=== PATIENT | male | born 1975 | race African-American/Black ===

== ENCOUNTER 2019-08-01 11:50 | Inpatient (IN) | payer MEDICARE ==
[2019-08-01] VITALS (7 sets, daily range): BP systolic 133–152; BP diastolic 92–108; BMI 26.6
[~2019-08-01] VITALS: Ht 175.3 cm; Wt 77.1 kg
[2019-08-01 12:46] LABS: BASOPHILS 0.2 % (0-2); EOSINOPHILS 1.3 % (0-7); HEMATOCRIT 47.4 % (42.0-54.0); HEMOGLOBIN 15.8 g/dL (13.5-17.5); IMMATURE GRANULOCYTES 0.3 % (0-5); MCH 28.5 pg (26.0-34.0); MCHC 33.3 g/dL (31.0-37.0); MCV 85.4 fL (80.0-100.0); MONOCYTES 5.8 % (2-11); NEUTROPHILS 67.4 % (40-80); PLATELET COUNT 191 10x3/uL (130-400); RBC 5.55 10x6/uL (4.20-6.10); RDW 16.3 % (11.5-14.5); WBC 6.1 10x3/uL (4.8-10.8)
[2019-08-01 12:56] LABS: APTT 27.6 SECONDS (22.8-39.4); INR 1.04 (0.85-1.17); PROTIME 13.1 SECONDS (11.6-15.0)
[2019-08-01 13:02] LABS: D-DIMER-QUANTITATIVE 1.02 ug/mLFEU (0.20-0.54)
[2019-08-01 13:05] LABS: ALBUMIN 3.4 g/dL (3.4-5.0); ALKALINE PHOSPHATASE 86 U/L (46-116); ALT (SGPT) 70 U/L (10-68); BILIRUBIN - TOTAL 0.27 mg/dL (0.2-1.3); CALC OSMOLALITY 279 mosm/kg (275-300); CALCIUM 8.5 mg/dL (8.5-10.1); CARBON DIOXIDE 25.7 mmol/L (21.0-32.0); CHLORIDE - SERUM 107 mmol/L (98-107); CREATININE - SERUM 0.9 mg/dL (0.6-1.3); GLUCOSE 96 mg/dL (74-106); PROTEIN - SERUM 7.9 g/dL (6.4-8.2); SODIUM 141 mmol/L (136-145); UREA NITROGEN 10 mg/dL (7-18); eGFR NON AFRICAN AMERICAN > 90 mL/min (90-120)
[2019-08-01 13:15] LABS: CKMB 1.4 U/L (0.0-3.6); CREATINE KINASE 191 UL (21-232); PRO BNP 1063 pg/mL (0-125)
[2019-08-01 13:17] LABS: TROPONIN-I < 0.017 ng/mL (0.000-0.060)
--- NOTE | 2019-08-01 14:33 | NUR ---
REPORT CALLED TO RECEIVING NURSE, PT JUST BEGAN C/O N/V.
--- NOTE | 2019-08-01 15:33 | NUR ---
PT ARRIVES TO ROOM VIA WHEELCHAIR ESCORTED BY HOSPITAL STAFF. PT IS HYPERTENSIVE. SEE VS FLOWSHEET. O2 VIA NC @ 4L. PT REPORTS PAIN TO "LUNGS". PT DENIES PRESENCE OF N/V. PT REPORTS SLIGHT TROUBLE WITH TAKING DEEP BREATHS. PT IS AAO X 4. RESPIRATIONS ARE EVEN AND UNLABORED. BROTHER ACCOMPANIES PT TO ROOM. PIV TO LEFT HAND IS INFUSING WITHOUT DIFFICULTY. AZITHROMYCIN INFUSING WITHOUT DIFFICULTY. BED IS IN THE LOWEST POSITION. CALL LIGHT AND BEDSIDE TABLE ARE WITHIN REACH. SIDE RAILS X 2. WILL CONT TO MONITOR.
--- NOTE | 2019-08-01 15:55 | NUR ---
PT BROTHER PULLS THIS NURSE ASIDE OUTSIDE OF PT ROOM AND REPORTS THAT THE PT DOES HAVE A HX OF SCHIZOPHRENIA BUT DOES NOT TAKE MEDICATION FOR PSYCHIATRIC ILLNESS.
--- NOTE | 2019-08-01 16:44 | NUR ---
PT WITH O2 SATURATIONS @ 85% ON 4L NC HUMIDIFIED. RESPIRATORY TAMMI NOTIFIED AND PLACED PT ON HIGH FLOW NC @ 7L. DR LAWSON NOTIFIED OF PT STATUS. TELEPHONE ORDERS RECD ARE TO OPBTAIN BLOOD GAS. RESPIRATORY TAMMI NOTIFIED OF NEED FOR BLOOD GAS. PT IS CURRENTLY SITTING IN BED RESPIRATIONS ARE EVEN AND FAST. PT REQUESTS TO EAT DINNER BECAUSE "MY STOMACH IS EMPTY AND THAT IS WHY I CAN'T BREATHE". WILL CONT TO MONITOR.
--- NOTE | 2019-08-01 17:43 | NUR ---
PT WITH REQUESTS TO LEAVE AMA. PT IS BECOMING ANXIOUS AND IRRITATED AT NC AND O2. PT ASKS "WHAT DO I HAVE TO DO TO LEAVE HERE". PT ENCOURAGED TO STAY FOR TREATMENT. PT IS COOPERATIVE AT THIS TIME. PAGE PLACED TO JLUIS HERRERA APRN TO NOTIFY OF PT STATE AND REQUEST.
--- NOTE | 2019-08-01 17:55 | NUR ---
JLUIS HERRERA APRN RETURNED PAGE. WILL COME AND ASSESS PT AT THIS TIME. NO NEW ORDERS RECD.
--- NOTE | 2019-08-01 18:28 | NUR ---
DR LAWSON, JLUIS HERRERA APRN AND THIS NURSE AT BEDSIDE WITH PT BROTHER IN ROOM. DISCUSSED TREAMTENT PLAN AT LENGTH WITH PT AND PT BROTHER. VERBAL ORDERS RECD POST ROOM CONFERENCE ARE DUONEB TREATMENT Q4H, 21MG NICOTINE PATCH DAILY, 0.5MG ATIVAN IV ONE TIME NOW. WILL PLACE ORDERS.
[2019-08-02] VITALS: BP 131/83
[2019-08-02 04:00] VITALS: BP 135/95
[2019-08-02 06:25] LABS: BASOPHILS 0 % (0-2); EOSINOPHILS 0 % (0-7); HEMATOCRIT 44.9 % (42.0-54.0); HEMOGLOBIN 14.7 g/dL (13.5-17.5); IMMATURE GRANULOCYTES 0.3 % (0-5); LYMPHOCYTES 7.1 % (15-50); MCH 27.5 pg (26.0-34.0); MCHC 32.7 g/dL (31.0-37.0); MCV 84.1 fL (80.0-100.0); MEAN PLATELET VOLUME 10.1 fL (7.4-10.4); MONOCYTES 1.1 % (2-11); NEUTROPHILS 91.5 % (40-80); PLATELET COUNT 188 10x3/uL (130-400); RBC 5.34 10x6/uL (4.20-6.10); RDW 15.9 % (11.5-14.5)
[2019-08-02 06:39] LABS: WBC 9.8 10x3/uL (4.8-10.8)
[2019-08-02 06:49] LABS: CALC OSMOLALITY 281 mosm/kg (275-300); CARBON DIOXIDE 24.3 mmol/L (21.0-32.0); CHLORIDE - SERUM 107 mmol/L (98-107); CREATININE - SERUM 0.9 mg/dL (0.6-1.3); MAGNESIUM - SERUM 2.4 mg/dL (1.8-2.4); PHOSPHOROUS 3.7 mg/dL (2.5-4.9); POTASSIUM - SERUM 4.3 mmol/L (3.5-5.1); PRO BNP 2539 pg/mL (0-125); SODIUM 139 mmol/L (136-145); UREA NITROGEN 12 mg/dL (7-18); eGFR NON AFRICAN AMERICAN > 90 mL/min (90-120)
[2019-08-02 06:52] LABS: APPEARANCE CLEAR (CLEAR); BILIRUBIN NEGATIVE (NEGATIVE); COLOR YELLOW (YELLOW); GLUCOSE NEGATIVE (NEGATIVE); KETONE NEGATIVE (NEGATIVE); NITRITE NEGATIVE (NEGATIVE); PROTEIN NEGATIVE (NEGATIVE); SPECIFIC GRAVITY 1.015 (1.005-1.020); UROBILINOGEN NORMAL (NORMAL)
[2019-08-02 06:52] LABS: GLUCOSE 164 mg/dL (74-106)
[2019-08-02 08:00] VITALS: BP 125/74
--- NOTE | 2019-08-02 08:08 | NUR ---
ALERT AND ORIENTED X3 WITH RESP EVEN AND UNLABORED WITH HI-FLOW 02 AT 7L N/C. BREATH SOUNDS DIMINISHED TO BLQ POSTERIOR. UP ADLIB AND ENCOURAGED TO USE CALL LIGHT FOR ASSIT.
[2019-08-02 20:05] VITALS: BP 110/71
[2019-08-03] VITALS (9 sets, daily range): BP systolic 124–145; BP diastolic 63–109
[2019-08-03 02:56] LABS: UDS - AMPHET NEGATIVE QUAL (NEGATIVE); UDS - BARB NEGATIVE QUAL (NEGATIVE); UDS - BENZO NEGATIVE QUAL (NEGATIVE); UDS - COCAINE NEGATIVE QUAL (NEGATIVE); UDS - OPIATE NEGATIVE QUAL (NEGATIVE); UDS - PCP NEGATIVE QUAL (NEGATIVE); UDS - THC NEGATIVE QUAL (NEGATIVE)
[2019-08-03 07:13] LABS: BASOPHILS 0 % (0-2); EOSINOPHILS 0 % (0-7); HEMOGLOBIN 12.9 g/dL (13.5-17.5); IMMATURE GRANULOCYTES 0.2 % (0-5); LYMPHOCYTES 5.4 % (15-50); MCH 27.4 pg (26.0-34.0); MCHC 32.3 g/dL (31.0-37.0); MCV 85.1 fL (80.0-100.0); MEAN PLATELET VOLUME 10.2 fL (7.4-10.4); MONOCYTES 4.6 % (2-11); NEUTROPHILS 89.8 % (40-80); PLATELET COUNT 182 10x3/uL (130-400); RDW 16.2 % (11.5-14.5)
[2019-08-03 07:34] LABS: CALC OSMOLALITY 287 mosm/kg (275-300); CALCIUM 8.3 mg/dL (8.5-10.1); CARBON DIOXIDE 25.9 mmol/L (21.0-32.0); CHLORIDE - SERUM 109 mmol/L (98-107); GLUCOSE 146 mg/dL (74-106); MAGNESIUM - SERUM 2.5 mg/dL (1.8-2.4); PHOSPHOROUS 3.3 mg/dL (2.5-4.9); POTASSIUM - SERUM 4.1 mmol/L (3.5-5.1); SODIUM 143 mmol/L (136-145); UREA NITROGEN 12 mg/dL (7-18); eGFR NON AFRICAN AMERICAN 87 mL/min (90-120)
--- NOTE | 2019-08-03 08:00 | NUR ---
ALERT AND ORIENTED X3 WITH ANXIEY. ATIVAN GIVEN FOR ANXIETY AND EFFECTIVE. STATES WANTS TO SMOKE BUT INSTRUCTED THAT IS WHY HE IS WEARING A NICOTINE PATCH. FAMILY HERE AT THIS TIME. HRRR WITH NO PERIPHERAL EDEMA NOTED. O2 3L N/C WITH NON-PRODUCTIVE COUGH. BREATH SOUNDS DIMINISHED X2 TO BLQ POSTERIOR WITH DYSPNEA
--- NOTE | 2019-08-03 14:30 | NUR ---
PT FREQUENTLY REMINDED TO KEEP OXYGEN ON PER NASAL CANULA PULSE OX DROPS TO 80/S WHEN OFF. HI-FLOW OXYGEN AT 5L N/C. NON- PRODUCTIVE COUGH NOTED. O2 SAT 93 WITH OXYGEN ON.
--- NOTE | 2019-08-03 17:47 | NUR ---
DR. LAWSON CALLED REGARDING NON COMPLIANCE WITH KEEPING OXYGEN ON AND AGITIATION WITH NEW ORDER NOTED. BROTHER HERE AT THIS TIME.
--- NOTE | 2019-08-03 18:19 | NUR ---
REPORT CALLED TO CHANTEL REGARDING PT PRESENT CONDITION. BIPAP ON AT THIS TIME WITH CALM DEMENOR AT THIS TIME. LASIX IV GIVEN. STABLE AT TIME OF TRANSFER. BROTHER HERE AND AWARE OF SITUATION.
--- NOTE | 2019-08-03 18:35 | NUR ---
PATIENT ARRIVED TO UNIT
--- NOTE | 2019-08-03 18:53 | NUR ---
FAMILY AT BEDSIDE UPDATE GIVEN.
--- NOTE | 2019-08-03 19:00 | NUR ---
REPORT RECEIVED INITIAL ASSESSMENT COMPLETE PT LETHARGIC BUT AWAKENS TO VERBAL STIMULI ORIENTED FOLLOWS COMMANDS. RESP EVEN FAINT CRACKLES TO BASES. BIPAP 65% SEE RT FOR NOTES. CM READING ST ALARMS ON AND AUDIBLE. BED IN LOW POSITION SIDE RAILS UP TIMES 3 FOR BED MOBILITY AND SAFETY CL IN REACH.PTS FAMILY AT BEDSIDE BROTHER STATES "HE DOES DRINK ALOT EVERYDAY AND USES DRUGS CRACK AND METH" PT HAS LONG MENTAL HEALTH HISTORY WITH NONCOMPLIANCE WITH MEDS
--- NOTE | 2019-08-03 21:00 | NUR ---
BED ALARM SOUNDING INTO CHECK ON PT HE IS ATTEMPTING TO GET OOB TO URINATE REEDUCATED ON BED REST AND NEED TO USE URINAL NOT TO GET OOB WITHOUT ASSIST
--- NOTE | 2019-08-03 23:00 | NUR ---
REASSESSMENT COMPLETE SEE FLOWSHEET CPOC
--- NOTE | 2019-08-03 23:35 | NUR ---
BED ALARM SOUNDING PT UP HAS PULLED GOWN OFF AND CM O2 SAT OFF. PT HAD URINATED ON SELF ASSISTED WITH COMPLETE CHG BATH AND COMPLETE LINEN CHANGE. PT STATES "I WANT TO BE DISCHARGED INFORMED OF HOW SICK HE HAD BEEN EARLIER WITH FLUID AND NOT BEING ABLE TO BREATHE WELL WITH FLUID THAT NEED TO BE HERE AT THIS TIME
--- NOTE | 2019-08-03 23:45 | NUR ---
PT ANXIOUS GETTING OOB AND WANTING TO LEAVE MEDICATED WITH PRN MED SEE EMAR.
[2019-08-04] VITALS (24 sets, daily range): BP systolic 87–160; BP diastolic 56–114
--- NOTE | 2019-08-04 02:00 | NUR ---
PT ANXIOUS BROTHER AT BEDSIDE TO EASE PTS ANXIETY AND AGITATION
--- NOTE | 2019-08-04 03:00 | NUR ---
REASSESSMENT MADE VSS CPOC PTS BROTHER REMAINS AT BEDSIDE
[2019-08-04 03:13] LABS: BASOPHILS 0.1 % (0-2); EOSINOPHILS 0.1 % (0-7); HEMOGLOBIN 14.3 g/dL (13.5-17.5); IMMATURE GRANULOCYTES 0.3 % (0-5); LYMPHOCYTES 14.1 % (15-50); MCH 27.7 pg (26.0-34.0); MCHC 32.5 g/dL (31.0-37.0); MCV 85.3 fL (80.0-100.0); MEAN PLATELET VOLUME 10.7 fL (7.4-10.4); MONOCYTES 5.8 % (2-11); NEUTROPHILS 79.6 % (40-80); PLATELET COUNT 205 10x3/uL (130-400); RBC 5.16 10x6/uL (4.20-6.10); RDW 16.6 % (11.5-14.5); WBC 14.7 10x3/uL (4.8-10.8)
[2019-08-04 03:18] LABS: CALC OSMOLALITY 281 mosm/kg (275-300); CALCIUM 8.7 mg/dL (8.5-10.1); CHLORIDE - SERUM 103 mmol/L (98-107); CREATININE - SERUM 0.9 mg/dL (0.6-1.3); GLUCOSE 115 mg/dL (74-106); POTASSIUM - SERUM 4.1 mmol/L (3.5-5.1); SODIUM 141 mmol/L (136-145); UREA NITROGEN 12 mg/dL (7-18); eGFR NON AFRICAN AMERICAN > 90 mL/min (90-120)
--- NOTE | 2019-08-04 05:30 | NUR ---
PT REQUESTING SPRITE SWALLOW WITHOUT DIFFICULTY
--- NOTE | 2019-08-04 07:00 | NUR ---
RECEIVED BEDSIDE REPORT AND ASSUMED CARE OF PATIENT. PATIENT RESTING QUIETLY WITH EYES CLOSED VSS, BROTHER AT BEDSIDE. IV 20 GA TO LEFT HAND, FLUSHES EASILY WITH POSITIVE BLOOD RETURN, NSL. CM - HR 117, ST, BBS CLEAR AND EQUAL DIMINISHED IN BASES, RR - 26, SPO2 - 92% ON 2 LPM O2 VIA NC. HEAD TO TOE ASSESSMENT COMLETED.
--- NOTE | 2019-08-04 07:45 | NUR ---
PATIENT GIVEN BREAKFAST TRAY.
--- NOTE | 2019-08-04 09:01 | NUR ---
PATIENT RESTING QUIETLY, EASILY AROUSED, GIVEN MEDS PER MAR. VSS.
--- NOTE | 2019-08-04 11:06 | NUR ---
REASSESSMENT COMPLETED. VSS. IV 22 GA TO RIGHT WRIST STARTED X 1 ATTEMPT, POSITIVE BLOOD RETURN AND FLUSHES EASILY, DOBUTAMINE GTT STARTED AT 5 MCG/KG/MIN PER ORDER. PATIENT RESTING QUIETLY.
--- NOTE | 2019-08-04 13:23 | NUR ---
REPORT RECIEVED ON PT AT THIS TIME. VSS. PT LYING IN BED RESTING, RESPIRATIONS STEADY AND UNLABORED. AWAKENS EASILY WHEN SPOKEN TO. INDEPENDENT IN BED. WILL CONTINUE PLAN OF CARE.
--- NOTE | 2019-08-04 14:42 | NUR ---
CONTINENT VOID VIA URINAL NOTED AT THIS TIME. 375ML YELLOW URINE NOTED. NO ACUTE DISTRESS NOTED. VSS. WILL CONTINUE PLAN OF CARE.
--- NOTE | 2019-08-04 16:14 | NUR ---
UP IN BED EATING SUPPER AT THIS TIME. NO ACUTE DISTRESS NOTED. VSS. WILL CONTINUE PLAN OF CARE.
--- NOTE | 2019-08-04 18:29 | NUR ---
LYING IN BED RESTING AT THIS TIME. RESPIRATIONS STEADY AND UNLABORED RATE. AWAKENS EASILY WHEN SPOKEN TO. WILL CONTINUE PLAN OF CARE.
--- NOTE | 2019-08-04 19:00 | NUR ---
REPORT RECEIVED, PT RESTING IN BED, NO ACUTE DISTRESS NOTED. AROUSES TO VOICE, LETHARGIC, BUT OTHERWISE ALERT AND ORIENTED. PT ON 4L VIA NC, PIV IN RIGHT HAND INFUSING, SEE FLOWSHEET, ASSESSMENT COMPLETED, SEE FLOWSHEET. NO ACUTE DISTRESS NOTED AT THIS TIME.
--- NOTE | 2019-08-04 21:00 | NUR ---
PT RESTING IN BED, NO ACUTE DISTRESS NOTED.
--- NOTE | 2019-08-04 23:00 | NUR ---
PT RESTING IN BED, NO ACUTE DISTRESS NOTED.
[2019-08-05] VITALS (24 sets, daily range): BP systolic 83–130; BP diastolic 54–98; Ht 175.3 cm; Wt 77.1 kg
--- NOTE | 2019-08-05 01:00 | NUR ---
PT RESTING IN BED, ON 1L O2 VIA NC, REPORTS "ITCHING" ON ARMS AND ON BODY, NO SIGNS OF RASH/REDNESS. WILL CONTINUE TO MONITOR.
--- NOTE | 2019-08-05 03:00 | NUR ---
PT RESTING IN BED, DENIES SOB.
[2019-08-05 04:32] LABS: BASOPHILS 0.1 % (0-2); HEMATOCRIT 44.9 % (42.0-54.0); IMMATURE GRANULOCYTES 0.3 % (0-5); LYMPHOCYTES 30.7 % (15-50); MCH 28.1 pg (26.0-34.0); MCHC 33.4 g/dL (31.0-37.0); MCV 84.1 fL (80.0-100.0); MEAN PLATELET VOLUME 10.7 fL (7.4-10.4); MONOCYTES 9.8 % (2-11); NEUTROPHILS 57.1 % (40-80); PLATELET COUNT 196 10x3/uL (130-400); RBC 5.34 10x6/uL (4.20-6.10); RDW 16.2 % (11.5-14.5)
[2019-08-05 04:36] LABS: WBC 7.4 10x3/uL (4.8-10.8)
--- NOTE | 2019-08-05 05:00 | NUR ---
PT RESTING IN BED, LATHARGIC, FAMILY AT BEDSIDE.
[2019-08-05 05:02] LABS: CALCIUM 8.8 mg/dL (8.5-10.1); CARBON DIOXIDE 28.9 mmol/L (21.0-32.0); CHLORIDE - SERUM 100 mmol/L (98-107); GLUCOSE 116 mg/dL (74-106); MAGNESIUM - SERUM 2.2 mg/dL (1.8-2.4); SODIUM 137 mmol/L (136-145); eGFR NON AFRICAN AMERICAN 87 mL/min (90-120)
[2019-08-05 05:05] LABS: CALC OSMOLALITY 276 mosm/kg (275-300); PHOSPHOROUS 4.5 mg/dL (2.5-4.9); POTASSIUM - SERUM 3.1 mmol/L (3.5-5.1); TROPONIN-I < 0.017 ng/mL (0.000-0.060); UREA NITROGEN 18 mg/dL (7-18)
--- NOTE | 2019-08-05 07:15 | NUR ---
REPORT RECEIVED. ASSESSMENT COMPLETE PER FLOW SHEET. VSS. PT RSTING COMFORTABLY DENIES NEEDS WILL CONTINUE TO MONITOR
--- NOTE | 2019-08-05 09:10 | NUR ---
PT GIVEN BREAKFAST TRAY ATE 100%
--- NOTE | 2019-08-05 11:00 | NUR ---
REASSESSMENT COMPLETE PER FLOW SHEET. VSS. NO NEW CHANGES PT RESTING COMFORTABLY WILL CONTINUE TO MONITOR
--- NOTE | 2019-08-05 11:10 | EC ---
PATIENT:TRAM BYERS DATE OF SERVICE: 08/01/19 SEX: M MEDICAL RECORD: [id number] DATE OF : [birth year] LOCATION:[facility] AGE OF PATIENT: 43 ADMISSION DATE: 08/01/19 REFERRING PHYSICIAN: INTERPRETING PHYSICIAN: KINGSTON FERNANDEZ MD ECHOCARDIOGRAM REPORT ECHO CHARGES 4 ECHO COMPLETE Date: 08/02/19 CLINICAL DIAGNOSIS: ELEVATED BNP/TACHYCARDIA/ RESP.FAILURE/DRUG USE ECHOCARDIOGRAPHIC MEASUREMENTS (adult normal given) AC root (d.<3.7cm) 3.3 cm LV Septum d (<1.2 cm> 1.5 cm Valve Excursion 2.0 cm LV Septum (systole) 1.7 cm Left Atria (s.<4.0cm> 4.2 cm LVPW d(<1.2cm) 1.2 cm RV (d.<2.3cm) 1.7 cm LVPW (sytole) 1.9 cm LV diastole(<5.6CM) 6.9 cm MV E-F(>70mm/sec) cm LV systole 5.1 cm LVOT Diameter 1.9 cm MV exc.(>10mm) cm Est.ejection fraction (50-75%) % DOPPLER: LVIT cm/sec A 60.0 cm/sec E 144 cm/sec LA cm/sec RVSP 26.4 mmHg LVOT 109 cm/sec AOP1/2T m/s Asc. Ao 146 cm/sec RVOT 54.0 cm/sec RA cm/sec PA 80.0 cm/sec AV Gradient Peak 8.5 mmHg AV Mean 4.7 mmHg AV Area 2.1 cm MV Gradient Peak 8.3 mmHg MV Mean 3.2 mmHg MV Area cm COMMENTS: Mixer Operator Helper Hot Metal: 1 FROYLAN MORALESOE Lens Cutter: 3 Dr. Crowder TAPE# PACS Pericardial Effusion N DATE OF SERVICE: PROCEDURE: Echocardiogram. FINDINGS: 1. Left ventricular chamber size is dilated. Left ventricular systolic function is markedly reduced at 20%. 2. Left atrium, right atrium, and right ventricular chamber sizes are dilated giving 4-chamber dilatation. 3. Valvular structures have normal structure and motion. ECHOCARDIOGRAM REPORT [id number] TRAM BYERS 4. Doppler interrogation reveals moderate mitral regurgitation, mild tricuspid regurgitation, no other valvular insufficiency or stenosis. Pulmonary systolic pressure is estimated at 26 mmHg. 5. No evidence of pericardial effusion or left ventricular thrombus. TRANSINT:[id number] Voice Confirmation ID: [id number] DOCUMENT ID: [id number] KINGSTON FERNANDEZ MD at 1110 CC: [id number] DICTATION DATE: 08/02/19 1316 CALL CENTRE SUPERVISOR: 08/02/19 1340 ADM IN [facility] [address] [id number]
[2019-08-05 13:12] LABS: ANA REFLEX - DIRECT Negative (Negative)
--- NOTE | 2019-08-05 13:20 | NUR ---
FAMILY AT BEDSIDE VSS NO NEW CHANGES PT RESTING COMFORTABLY WILL CONTINUE TO MONTIOR
--- NOTE | 2019-08-05 15:00 | NUR ---
REASSESSMENT COMPLETE PER FLOW SHEET. VSS. NO NEW CHANGES PT RESTING COMFORTABLY WILL CONTINUE TO MONITOR
--- NOTE | 2019-08-05 15:03 | MORECARE ---
CASE MANAGEMENT DISCHARGE SUMMARY PATIENT: TRAM BYERS UNIT: [id number] ADM DATE: 08/01/19 AGE: 43 : [birth year] SEX: M ROOM/BED: D.2311 AUTHOR: LISA,DOC PHYSICIAN: REFERRING PHYSICIAN: INEZ LAWSON MD DATE OF SERVICE: 08/05/19 Discharge Plan Patient Name: TRAM BYERS Facility: [facility]:[place] : 1975 Planned Disposition: Home Anticipated Discharge Date: Discharge Date: Expected LOS: Initial Reviewer: [email or web address] Initial Review Date: 08/05/2019 Generated: 08/05/19 4:03 pm Comments DCP- Discharge Planning Updated by [email or web address]: Yoselyn Lindsey on 08/05/19 1:[address] Patient Name: TRAM BYERS Admission Status: ER Accout number: [id number] Admission Date: 08-01-2019 : 1975 Admission Diagnosis: Attending: INEZ LAWSON Current LOS: 4 Anticipated DC Date: Planned Disposition: Home Primary Insurance: MEDICARE A & B Discharge Planning Comments: CM met with patient at bedside after explaining CM role and obtaining verbal consent. Patient lives at home alone where he is independent with his care and plans to return there upon discharge. Patient feels this would be a safe discharge. CM discussed availability / needs of home health and medical equipment. Patient denies any discharge needs at this time. Patient states he will have his family drive him home upon discharge. CM will continue to follow and assist as needed with discharge planning / needs. Headstart Teacher: Yoselyn Lindsey DCPIA - Discharge Planning Initial Assessment Updated by [email or web address]: Yoselyn Lindsey on 08/05/19 2:54 pm * Is the patient Alert and Oriented? Yes * How many steps to enter\exit or inside your home? * PCP no PCP * Pharmacy [facility] * Preadmission Environment Home Alone * ADLs Independent * Equipment None * List name and contact numbers for known caregivers / representatives who currently or will assist patient after discharge: TAMMI TAYLOR - [phone] * Verbal permission to speak to the caregivers and representatives has been obtained from the patient. N/A * Community resources currently utilized None * Additional services required to return to the preadmission environment? No * Can the patient safely return to the preadmission environment? Yes * Has this patient been hospitalized within the prior 30 days at any hospital? No Coverage Notice Reviewer: [email or web address] Caleb Cohn Notice Issued Date-Time: 08/02/2019 16:53 Notice Type: IM Discharge Notice Notice Delivered To: Patient Relationship to Patient: Information Security Analyst Name: Delivery Method: HAND - Hand Delivered Geetha Days: Prior Verbal Notification: Recipient Understood Notice: Yes Recipient Signature: Yes Med Rec Note Co-signed by Attending: Coverage Notice Comment: Patient Name: TRAM BYERS Page [phone] at 1503 All edits/amendments must be made on the electronic document DICTATION DATE: 08/05/191502 BAT LATHE OPERATOR: JERRY 08/05/191502 RPT#: [id number] DC DATE: STATUS: ADM IN [facility] [address] [place] [address] END OF REPORT
--- NOTE | 2019-08-05 19:00 | NUR ---
BEDSIDE REPORT AND SHIFT ASSESSMENT COMPLETE. VSS, NO SIGNS OF ACUTE DISTRESS NOTED. DENIES NEEDS AT THIS TIME, CALL LIGHT IN REACH. WILL MONITOR.
--- NOTE | 2019-08-05 21:00 | NUR ---
MEDS GIVEN PER MAR AND TOLERATED BY PT. VSS, NO SIGNS OF ACUTE DISTRESS NOTED. PT CONFUSED, SAYING SHE HAS NOT HAD HER BREAKFAST YET. I REORIENTED, AND SHE VERBALIZES UNDERSTANDING THAT IT IS NIGHT TIME. WILL MONITOR.
--- NOTE | 2019-08-05 23:00 | NUR ---
REASSESSMENT COMPLETE, SEE FLOWSHEET. VSS, NO SIGNS OF ACUTE DISTRESS NOTED. MEDS GIVEN PER MAR. PT DENIES ANY NEEDS AT THIS TIME, WILL MONITOR.
[2019-08-06] VITALS (7 sets, daily range): BP systolic 99–124; BP diastolic 69–96
--- NOTE | 2019-08-06 01:00 | NUR ---
PT ASKING IF I COULD TAKE HIS IV OUT, I TOLD HIM NO. HE THEN ASKED IF HE WAS GOING TO GET TO GO HOME TOMORROW, I TOLD HIM WE WOULD KNOW MORE IN THE MORNING. HE SAID THAT HE DOES NOT WANT ANY OF HIS FAMILY TO KNOW WHEN HE WILL BE DISCHARGED. I ASKED WHY AND HE SHRUGGED HIS SHOULDERS AND SAID "THEY JUST DONT NEED TO KNOW"
--- NOTE | 2019-08-06 03:00 | NUR ---
REASSESSMENT COMPLETE, SEE FLOWSHEET. PT SLEEPING, BROTHER AT BEDSIDE. VSS. CALL LIGHT IN REACH, WILL MONITOR.
--- NOTE | 2019-08-06 05:00 | NUR ---
PT SLEEPING, BROTHER AT BEDSIDE. VSS, NO SIGNS OF ACUTE DISTRESS NOTED. CALL LIGHT IN REACH.
[2019-08-06 05:29] LABS: ANION GAP 12.8 mmol/L (8-16); BASOPHILS 0.3 % (0-2); CALCIUM 8.9 mg/dL (8.5-10.1); CARBON DIOXIDE 29.6 mmol/L (21.0-32.0); EOSINOPHILS 3.4 % (0-7); HEMATOCRIT 46.2 % (42.0-54.0); HEMOGLOBIN 15.3 g/dL (13.5-17.5); IMMATURE GRANULOCYTES 0.5 % (0-5); LYMPHOCYTES 37.8 % (15-50); MCH 27.7 pg (26.0-34.0); MCHC 33.1 g/dL (31.0-37.0); MCV 83.7 fL (80.0-100.0); MEAN PLATELET VOLUME 10.9 fL (7.4-10.4); MONOCYTES 11.7 % (2-11); NEUTROPHILS 46.3 % (40-80); PLATELET COUNT 214 10x3/uL (130-400); POTASSIUM - SERUM 3.4 mmol/L (3.5-5.1); RBC 5.52 10x6/uL (4.20-6.10); RDW 15.9 % (11.5-14.5); WBC 5.8 10x3/uL (4.8-10.8)
[2019-08-06 05:37] LABS: CREATININE - SERUM 1.4 mg/dL (0.6-1.3)
--- NOTE | 2019-08-06 05:50 | NUR ---
PT SITTING AT BS, IV OUT, NO BLEEDING NOTED, DSG APPLIED. BROTHER AT BS, "TRYING TO GET HIM TO STAY". PT WANTS TO LEAVE. EXPLAINED RELEVANCE OF DOBUTAMINE GTT THAT WAS INFUSING AND NEED TO MONITOR VS. PT BECOMING AGITATED, "IM A GROWN MAN AND I WANT TO LEAVE". DR. LAWSON PAGED
--- NOTE | 2019-08-06 06:00 | NUR ---
Mikael PADRON APN RETURNED PAGE - NOTIFIED OF PT WANTING TO LEAVE. ORDER FOR ONE TIME ATIVAN PO - FOR AGITATION. NOTIFIED PT HE CANNOT BE DISCHARGED UNTIL SEEN BY MD. PT REFUSED TAKING ATIVAN AT THIS TIME.
--- NOTE | 2019-08-06 07:29 | NUR ---
DR WHITNEY CALLED GIVEN UPDATE PT ADAMENT ON LEAVING AMA AT THIS TIME UNDERSTANDS RISKS INCLUDING FLUID OVERLOAD AND . STATES UNDERSTANDING TO COME BACK TO ER IF FEELING SOB. STATED UNDERSTANDING REGUARDING INSURANCE WILL NOT COVER THIS STAY. PT ALERT ORIENTED X4. ALL QUESTIONS ANSWERED, SPOKE TO PT AND FAMILY IN DEPTH REGUARDING CURRENT STAY AND DIAGNOSIS. PT CHOSING TO LEAVE AMA AT THIS TIME. PAPERWORK SIGNED DR FONTANA. WITNESSED BY VELVET ANTOINE.
--- NOTE | 2019-08-06 08:57 | MORECARE ---
CASE MANAGEMENT DISCHARGE SUMMARY PATIENT: TRAM BYERS UNIT: [id number] ADM DATE: 08/01/19 AGE: 43 : [birth year] SEX: M ROOM/BED: D.2311 AUTHOR: LISA,DOC PHYSICIAN: REFERRING PHYSICIAN: INEZ LAWSON MD DATE OF SERVICE: 08/06/19 Discharge Plan Patient Name: TRAM BYERS Facility: [facility]:[place] : 1975 Planned Disposition: Home Anticipated Discharge Date: Discharge Date: 08/06/2019 Expected LOS: Initial Reviewer: [email or web address] Initial Review Date: 08/05/2019 Generated: 08/06/19 9:57 am Comments DCP- Discharge Planning Updated by [email or web address]: Yoselyn Lindsey on 08/05/19 1:[address] Patient Name: TRAM BYERS Admission Status: ER Accout number: [id number] Admission Date: 08-01-2019 : 1975 Admission Diagnosis: Attending: INEZ LAWSON Current LOS: 4 Anticipated DC Date: Planned Disposition: Home Primary Insurance: MEDICARE A & B Discharge Planning Comments: CM met with patient at bedside after explaining CM role and obtaining verbal consent. Patient lives at home alone where he is independent with his care and plans to return there upon discharge. Patient feels this would be a safe discharge. CM discussed availability / needs of home health and medical equipment. Patient denies any discharge needs at this time. Patient states he will have his family drive him home upon discharge. CM will continue to follow and assist as needed with discharge planning / needs. Track Laying Supervisor: Yoselyn Lindsey DCPIA - Discharge Planning Initial Assessment Updated by [email or web address]: Yoselyn Lindsey on 08/05/19 2:54 pm * Is the patient Alert and Oriented? Yes * How many steps to enter\exit or inside your home? * PCP no PCP * Pharmacy [facility] * Preadmission Environment Home Alone * ADLs Independent * Equipment None * List name and contact numbers for known caregivers / representatives who currently or will assist patient after discharge: TAMMI EARL - [phone] * Verbal permission to speak to the caregivers and representatives has been obtained from the patient. N/A * Community resources currently utilized None * Additional services required to return to the preadmission environment? No * Can the patient safely return to the preadmission environment? Yes * Has this patient been hospitalized within the prior 30 days at any hospital? No Coverage Notice Reviewer: [email or web address] Caleb Cohn Notice Issued Date-Time: 08/02/2019 16:53 Notice Type: IM Discharge Notice Notice Delivered To: Patient Relationship to Patient: Rn Imaging Name: Delivery Method: HAND - Hand Delivered Geetha Days: Prior Verbal Notification: Recipient Understood Notice: Yes Recipient Signature: Yes Med Rec Note Co-signed by Attending: Coverage Notice Comment: Last DP export: 08/05/19 2:03 Patient Name: TRAM BYERS Page [phone] at 0857 All edits/amendments must be made on the electronic document DICTATION DATE: 08/06/1957 SHIPPER/RECEIVER: JERRY 08/06/19 0857 RPT#: [id number] DC DATE:08/06/19 STATUS: DIS IN [facility] [address] [place] [address] END OF REPORT
--- NOTE | 2019-08-06 09:05 | MORECARE ---
CASE MANAGEMENT DISCHARGE SUMMARY PATIENT: TRAM BYERS UNIT: [id number] ADM DATE: 08/01/19 AGE: 43 : 77 SEX: M ROOM/BED: D.2311 AUTHOR: LISA,DOC PHYSICIAN: REFERRING PHYSICIAN: INEZ LAWSON MD DATE OF SERVICE: 08/06/19 Discharge Plan Patient Name: TRAM BYERS Facility: [facility]:[place] : 1975 Planned Disposition: Home Anticipated Discharge Date: Discharge Date: 08/06/2019 Expected LOS: Initial Reviewer: [email or web address] Initial Review Date: 08/05/2019 Generated: 08/06/19 10:04 am Comments DCP- Discharge Planning Updated by [email or web address]: Yoselyn Lindsey on 08/05/19 1:[address] Patient Name: TRAM BYERS Admission Status: ER Accout number: [id number] Admission Date: 08-01-2019 : 1975 Admission Diagnosis: Attending: INEZ LAWSON Current LOS: 4 Anticipated DC Date: Planned Disposition: Home Primary Insurance: MEDICARE A & B Discharge Planning Comments: CM met with patient at bedside after explaining CM role and obtaining verbal consent. Patient lives at home alone where he is independent with his care and plans to return there upon discharge. Patient feels this would be a safe discharge. CM discussed availability / needs of home health and medical equipment. Patient denies any discharge needs at this time. Patient states he will have his family drive him home upon discharge. CM will continue to follow and assist as needed with discharge planning / needs. Skein Mercerizing Machine Operator: Yoselyn Lindsey DCPIA - Discharge Planning Initial Assessment Updated by [id number]: Yoselyn Lindsey on 08/05/19 2:54 pm * Is the patient Alert and Oriented? Yes * How many steps to enter\exit or inside your home? * PCP no PCP * Pharmacy [facility] * Preadmission Environment Home Alone * ADLs Independent * Equipment None * List name and contact numbers for known caregivers / representatives who currently or will assist patient after discharge: TAMMI EARL - [phone] * Verbal permission to speak to the caregivers and representatives has been obtained from the patient. N/A * Community resources currently utilized None * Additional services required to return to the preadmission environment? No * Can the patient safely return to the preadmission environment? Yes * Has this patient been hospitalized within the prior 30 days at any hospital? No Coverage Notice Reviewer: [email or web address] Caleb Cohn Notice Issued Date-Time: 08/02/2019 16:53 Notice Type: IM Discharge Notice Notice Delivered To: Patient Relationship to Patient: Data Analysis Manager Name: Delivery Method: HAND - Hand Delivered Geetha Days: Prior Verbal Notification: Recipient Understood Notice: Yes Recipient Signature: Yes Med Rec Note Co-signed by Attending: Coverage Notice Comment: Last DP export: 08/06/19 7:57 Patient Name: TRAM BYERS Page [phone] at 0905 All edits/amendments must be made on the electronic document DICTATION DATE: 08/06/19903 RETAIL FIELD SUPERVISOR: JERRY 08/06/19903 RPT#: [id number] DC DATE:08/06/19 STATUS: DIS IN [facility] [address] [place] [address] END OF REPORT
[2019-08-07 03:07] LABS: MYCOPLASMA PNEUMO IGG 715 U/mL (0-99)
== END 2019-08-06 07:34 | disposition home or self-care (01) | DRG 193 ==
LOC: D.ER 11:50 → D.ICU 13:49 → D.M3 13:49 → D.ICU 08-03 18:44
PROVIDERS: Family Medicine; Internal Medicine Pulmonary Disease; ADMIT Internal Medicine Nephrology; ATTEND Internal Medicine Nephrology
DX: J18.9 Pneumonia, unspecified organism (principal); J96.01 Acute respiratory failure with hypoxia; I50.43 Acute on chronic combined systolic (congestive) and diastolic (congestive) heart failure; J44.1 Chronic obstructive pulmonary disease with (acute) exacerbation; G93.1 Anoxic brain damage, not elsewhere classified; F17.213 Nicotine dependence, cigarettes, with withdrawal; I42.7 Cardiomyopathy due to drug and external agent; J44.0 Chronic obstructive pulmonary disease with (acute) lower respiratory infection; I10 Essential (primary) hypertension; F15.10 Other stimulant abuse, uncomplicated; F31.9 Bipolar disorder, unspecified; J30.9 Allergic rhinitis, unspecified

== ENCOUNTER 2019-10-08 09:54 | Inpatient (IN) | payer MEDICARE ==
[~2019-10-08] VITALS: Ht 175.3 cm; Wt 80.9 kg
[2019-10-08 10:33] LABS: BASOPHILS 0.4 % (0-2); EOSINOPHILS 0.9 % (0-7); HEMOGLOBIN 14.8 g/dL (13.5-17.5); IMMATURE GRANULOCYTES 0.3 % (0-5); LYMPHOCYTES 18.4 % (15-50); MCH 27.4 pg (26.0-34.0); MCHC 32.9 g/dL (31.0-37.0); MCV 83.3 fL (80.0-100.0); MEAN PLATELET VOLUME 10.2 fL (7.4-10.4); MONOCYTES 10.5 % (2-11); NEUTROPHILS 69.5 % (40-80); RDW 15.3 % (11.5-14.5); WBC 9.5 10x3/uL (4.8-10.8)
[2019-10-08 10:37] LABS: CALC OSMOLALITY 272 mosm/kg (275-300); CALCIUM 8.9 mg/dL (8.5-10.1); CARBON DIOXIDE 23.7 mmol/L (21.0-32.0); CHLORIDE - SERUM 101 mmol/L (98-107); CREATININE - SERUM 1.1 mg/dL (0.6-1.3); SODIUM 135 mmol/L (136-145); UREA NITROGEN 9 mg/dL (7-18); eGFR NON AFRICAN AMERICAN 78 mL/min (90-120)
[2019-10-08 10:39] LABS: APTT 35.8 SECONDS (22.8-39.4); INR 1.19 (0.85-1.17); PROTIME 14.5 SECONDS (11.6-15.0)
[2019-10-08 10:41] LABS: GLUCOSE 172 mg/dL (74-106)
[2019-10-08 10:42] LABS: PLATELET COUNT 325 10x3/uL (130-400)
[2019-10-08 10:54] LABS: ALBUMIN 2.9 g/dL (3.4-5.0); ALKALINE PHOSPHATASE 107 U/L (46-116); ALT (SGPT) 92 U/L (10-68); BILIRUBIN - TOTAL 0.88 mg/dL (0.2-1.3); CKMB 1.8 U/L (0.0-3.6); CREATINE KINASE 159 UL (21-232); PRO BNP 5572 pg/mL (0-125); PROTEIN - SERUM 7.7 g/dL (6.4-8.2); TROPONIN-I < 0.017 ng/mL (0.000-0.060)
[2019-10-08 11:19] VITALS: BP 140/101
--- NOTE | 2019-10-08 11:20 | NUR ---
VOIDED 500ML CLEAR YELLOW URINE VIA URINAL
--- NOTE | 2019-10-08 12:28 | NUR ---
REPORT CALLED BY ELINA COTTER
--- NOTE | 2019-10-08 12:50 | NUR ---
STOOP TIME FOR ROCEPHINE 1247
[2019-10-08 13:08] VITALS: BP 137/95; BMI 26.3
--- NOTE | 2019-10-08 14:00 | NUR ---
PT CURRENTLY LYING ON RIGHT SIDE ASLEEP WITH EYES CLOSED. RR EVEN AND UNLABORED ON RA. NO S/S OF DISTRESS NOTED. WILL CTM.
--- NOTE | 2019-10-08 15:47 | MORECARE ---
CASE MANAGEMENT DISCHARGE SUMMARY PATIENT: TRAM BYERS UNIT: [id number] ADM DATE: 10/08/19 AGE: 43 : 77 SEX: M ROOM/BED: D.8692 AUTHOR: LISA,DOC PHYSICIAN: REFERRING PHYSICIAN: INEZ LAWSON MD DATE OF SERVICE: 10/08/19 Discharge Plan Patient Name: TRAM BYERS Facility: [facility]:[place] : 1975 Planned Disposition: Anticipated Discharge Date: Discharge Date: Expected LOS: Initial Reviewer: [email or web address] Initial Review Date: 10/08/2019 Generated: 10/08/19 4:46 pm Comments DCP- Discharge Planning Updated by [email or web address]: Kimmy Louie on 10/08/19 2:[address] DC PLAN: Return home alone Independently. ANTICIPATED DC NEEDS: PCP CM met with patient to complete initial dc planning assessment. CM educated patient on the CM role and verbal consent given by patient to complete assessment. CM verified patient's address, phone number, and emergency contact phone numbers. Patient lives at home alone and reports he is independent with his ADL's until he gets sick. At discharge patient plans to return home alone and feels this is a safe discharge. His cousin in room asks about PCP info and also cg services info. CM provided her with MD taking new patients and also information r/t [employer] to get more info. Informed her the patient had to have a certain type of medicaid and certain qualifications. She verbalized understanding and will call to inquire. CM discussed availability of home health, rehab services, and medical equipment. Patient denied known discharge needs at this time. Transportation provider at discharge will be his cousin. CM will continue to follow and will assist as needed with dc plans/needs. Kimmy Louie RN, CCM DCPIA - Discharge Planning Initial Assessment Updated by [email or web address]: Kimmy Louie on 10/08/19 3:34 pm * Is the patient Alert and Oriented? Yes * How many steps to enter\exit or inside your home? None * PCP No PCP - information given on providers accepting new patients. * Pharmacy [facility] on [address] * Preadmission Environment Home Alone * ADLs Independent * Equipment None * List name and contact numbers for known caregivers / representatives who currently or will assist patient after discharge: Vani Morrison - adneike - [phone] * Community resources currently utilized None * Additional services required to return to the preadmission environment? No * Can the patient safely return to the preadmission environment? Yes * Has this patient been hospitalized within the prior 30 days at any hospital? No Patient Name: TRAM BYERS Page 32588 at 1547 All edits/amendments must be made on the electronic document DICTATION DATE: 10/08/19 1546 WASHTUB WORKER: JERRY 10/08/19 1546 RPT#: [id number] DC DATE: STATUS: ADM IN [facility] [address] [place] [address] END OF REPORT
[2019-10-08 18:13] LABS: UDS - AMPHET NEGATIVE QUAL (NEGATIVE); UDS - BARB NEGATIVE QUAL (NEGATIVE); UDS - BENZO NEGATIVE QUAL (NEGATIVE); UDS - COCAINE NEGATIVE QUAL (NEGATIVE); UDS - OPIATE NEGATIVE QUAL (NEGATIVE); UDS - PCP NEGATIVE QUAL (NEGATIVE); UDS - THC NEGATIVE QUAL (NEGATIVE)
[2019-10-08 18:27] LABS: APPEARANCE CLEAR (CLEAR); BILIRUBIN NEGATIVE (NEGATIVE); COLOR YELLOW (YELLOW); GLUCOSE NEGATIVE (NEGATIVE); KETONE NEGATIVE (NEGATIVE); NITRITE NEGATIVE (NEGATIVE); PROTEIN NEGATIVE (NEGATIVE); UROBILINOGEN NORMAL (NORMAL)
[2019-10-08 18:44] VITALS: BP 122/87
--- NOTE | 2019-10-08 19:27 | NUR ---
REPORT RECEIVED, WILL CONTINUE POC. PATIENT IS AAOX4, UP AD ADAN. LYING ON RIGHT SIDE. NO S/S OF DISTRESS OBSERVED, RR EVEN AND UNLABORED ON ROOM AIR. PATIENT DENIES NEEDS AT THIS TIME. DINNER TRAY REMOVED. CL IN REACH, BED LOCKED AND LOWERED. WILL CTM.
[2019-10-08 20:40] VITALS: BP 116/73
--- NOTE | 2019-10-09 00:06 | NUR ---
PATIENT ASKED TO BE D/C'D FROM IV SO THAT HE COULD GO TO VENDING MACHINE. DELAYED PUMP FOR 10 MIN.
[2019-10-09 00:20] VITALS: BP 119/68
[2019-10-09 04:47] VITALS: BP 115/42
[2019-10-09 06:56] LABS: BASOPHILS 0.3 % (0-2); HEMATOCRIT 41.1 % (42.0-54.0); HEMOGLOBIN 13.6 g/dL (13.5-17.5); IMMATURE GRANULOCYTES 0.3 % (0-5); LYMPHOCYTES 26.9 % (15-50); MCH 27.2 pg (26.0-34.0); MCHC 33.1 g/dL (31.0-37.0); MCV 82.2 fL (80.0-100.0); MEAN PLATELET VOLUME 9.9 fL (7.4-10.4); MONOCYTES 13.1 % (2-11); NEUTROPHILS 56.4 % (40-80); PLATELET COUNT 298 10x3/uL (130-400); RDW 15.3 % (11.5-14.5)
[2019-10-09 07:01] LABS: WBC 6.8 10x3/uL (4.8-10.8)
[2019-10-09 07:08] LABS: CALC OSMOLALITY 285 mosm/kg (275-300); CALCIUM 8.4 mg/dL (8.5-10.1); CHLORIDE - SERUM 105 mmol/L (98-107); CREATININE - SERUM 1.1 mg/dL (0.6-1.3); GLUCOSE 187 mg/dL (74-106); POTASSIUM - SERUM 3.6 mmol/L (3.5-5.1); SODIUM 141 mmol/L (136-145); eGFR NON AFRICAN AMERICAN 78 mL/min (90-120)
[2019-10-09 07:09] LABS: UREA NITROGEN 12 mg/dL (7-18)
--- NOTE | 2019-10-09 07:24 | NUR ---
REPORT RECEIVED. WILL CONTINUE WITH POC. PT CURRENTLY LYING SEMI FOWLERS. CALL LIGHT W/I REACH. PT IS AAO AND UP AD ADAN. RR EVEN AND UNLABORED ON RA. DOBUTAMINE INFUSING @12ML/HR VIA R.HAND PIV. NO S/S OF DISTRESS NOTED. PT DENIES ANY NEEDS. WILL CTM.
[2019-10-09 09:34] VITALS: BP 123/83
--- NOTE | 2019-10-09 11:02 | NUR ---
PREVIOUS PIV INFILTRATED. REMOVED PIV WITH CATHETER TIP FULLY INTACT. INITIATED NEW PIV TO THE LEFT FOREARM 20GA X1 ATTEMPT. PT TOLERATED WELL. FLUSHED PIV WITH 10ML OF NS. DOBUTAMINE INFUSING @12ML/HR. WILL CTM.
[2019-10-09 12:43] VITALS: BP 117/80
--- NOTE | 2019-10-09 13:01 | NUR ---
DOBUTAMINE DECREASED TO 6ML/HR VIA L.FOR PIV. WILL CTM.
[2019-10-09 14:40] VITALS: Ht 175.3 cm; Wt 80.9 kg
--- NOTE | 2019-10-09 14:49 | NUR ---
I have reviewed this patient and I concur with the Shift Assessment completed by the Licensed Practical Nurse today this shift.
[2019-10-09 17:16] VITALS: BP 105/69
--- NOTE | 2019-10-09 19:39 | NUR ---
REPORT RECEIVED, WILL CONTINUE POC. PATIENT IS AAOX4, LYING IN LOW-FOWLERS POSITION. NO S/S OF DISTRESS OBSERVED, RR EVEN AND UNLABORED. PATIENT BROTHER, TAMMI ASKED FOR UPDATE ON PATIENT. PERMISSION RECEIVED FROM PATIENT TO GIVE INFORMATION TO BROTHER. PATIENT REQUESTED COKES AND CUP OF ICE, GIVEN. PATIENT DENIES FURTHER NEEDS AT THIS TIME. CL IN REACH, BED LOCKED AND LOWERED. WILL CTM.
[2019-10-09 20:00] VITALS: BP 126/82
[2019-10-10] VITALS: BP 118/94
[2019-10-10 04:00] VITALS: BP 140/96
[2019-10-10 06:36] LABS: BASOPHILS 0.5 % (0-2); EOSINOPHILS 6.3 % (0-7); HEMATOCRIT 44.5 % (42.0-54.0); HEMOGLOBIN 14.3 g/dL (13.5-17.5); IMMATURE GRANULOCYTES 0.8 % (0-5); LYMPHOCYTES 30.9 % (15-50); MCH 26.9 pg (26.0-34.0); MCHC 32.1 g/dL (31.0-37.0); MCV 83.6 fL (80.0-100.0); MEAN PLATELET VOLUME 10.2 fL (7.4-10.4); MONOCYTES 14.2 % (2-11); NEUTROPHILS 47.3 % (40-80); PLATELET COUNT 330 10x3/uL (130-400); RBC 5.32 10x6/uL (4.20-6.10); RDW 15.4 % (11.5-14.5); WBC 6.2 10x3/uL (4.8-10.8)
[2019-10-10 06:54] LABS: CALCIUM 8.6 mg/dL (8.5-10.1); CARBON DIOXIDE 23.5 mmol/L (21.0-32.0); CREATININE - SERUM 1.2 mg/dL (0.6-1.3); POTASSIUM - SERUM 3.5 mmol/L (3.5-5.1)
--- NOTE | 2019-10-10 07:09 | NUR ---
REPORT RECEIVED. WILL CONTINUE WITH POC. PT CURRENTLY LYING SEMI FOWLERS. CALL LIGHT W/I REACH. PT IS ASLEEP WITH EYES CLOSED AT THIS TIME. RR EVEN AND UNLABORED ON RA. DOBUTAMINE INFUSING @6ML/HR VIA L.FOR PIV. NO S/S OF DISTRESS NOTED. WILL CTM.
[2019-10-10 08:50] VITALS: BP 120/85
[2019-10-10] MEDS ORDERED: K-TAB10 MEQ PO (10:27)
[2019-10-10] MEDS ORDERED: LASIX40 MG PO (10:27)
--- NOTE | 2019-10-10 10:48 | NUR ---
DOBUTAMINE DRIP STOPPED. WILL CTM.
--- NOTE | 2019-10-10 14:38 | NUR ---
PT DISCHARGED HOME VIA AMBULATORY. TELEMETRY REMOVED AND RETURNED. PT SIGNED PROPER DISCHARGE INSTRUCTIONS AND REMOVED ALL VALUABLES FROM THE ROOM. PIV REMOVED WITH CATHETER TIP FULLY INTACT.
--- NOTE | 2019-10-11 16:56 | MORECARE ---
CASE MANAGEMENT DISCHARGE SUMMARY PATIENT: TRAM BYERS UNIT: [id number] ADM DATE: 10/08/19 AGE: 43 : 77 SEX: M ROOM/BED: D.9465 AUTHOR: LISA,DOC PHYSICIAN: REFERRING PHYSICIAN: INEZ LAWSON MD DATE OF SERVICE: 10/11/19 Discharge Plan Patient Name: TRAM BYERS Facility: [facility]:[place] : 1975 Planned Disposition: Home Anticipated Discharge Date: 10/10/19 Discharge Date: 10/10/2019 Expected LOS: 2 Initial Reviewer: [email or web address] Initial Review Date: 10/08/2019 Generated: 10/11/19 5:56 pm DCP- Discharge Planning Updated by [email or web address]: Kimmy Louie on 10/08/19 2:[address] DC PLAN: Return home alone Independently. ANTICIPATED DC NEEDS: PCP CM met with patient to complete initial dc planning assessment. CM educated patient on the CM role and verbal consent given by patient to complete assessment. CM verified patient's address, phone number, and emergency contact phone numbers. Patient lives at home alone and reports he is independent with his ADL's until he gets sick. At discharge patient plans to return home alone and feels this is a safe discharge. His cousin in room asks about PCP info and also cg services info. CM provided her with MD taking new patients and also information r/t [employer] to get more info. Informed her the patient had to have a certain type of medicaid and certain qualifications. She verbalized understanding and will call to inquire. CM discussed availability of home health, rehab services, and medical equipment. Patient denied known discharge needs at this time. Transportation provider at discharge will be his cousin. CM will continue to follow and will assist as needed with dc plans/needs. Kimmy Louie RN, [facility] DCPIA - Discharge Planning Initial Assessment Updated by [email or web address]: Kimmy Louie on 10/08/19 3:34 pm * Is the patient Alert and Oriented? Yes * How many steps to enter\exit or inside your home? None * PCP No PCP - information given on providers accepting new patients. * Pharmacy [facility] on [address] * Preadmission Environment Home Alone * ADLs Independent * Equipment None * List name and contact numbers for known caregivers / representatives who currently or will assist patient after discharge: Vani Morrison - adenike - [phone] * Community resources currently utilized None * Additional services required to return to the preadmission environment? No * Can the patient safely return to the preadmission environment? Yes * Has this patient been hospitalized within the prior 30 days at any hospital? No Last DP export: 10/08/19 2:47 Patient Name: TRAM BYERS Page [phone] at 1656 All edits/amendments must be made on the electronic document DICTATION DATE: 10/11/191655 STRUCTURAL STEEL WORKER: JERRY 10/11/191655 RPT#: [id number] DC DATE:10/10/19 STATUS: DIS IN [facility] [address] [place] [address] END OF REPORT
== END 2019-10-10 14:44 | disposition home or self-care (01) | DRG 291 ==
LOC: D.ER 09:54 → D.M2 11:38
PROVIDERS: Family Medicine; ADMIT Internal Medicine Nephrology; ATTEND Internal Medicine Nephrology
DX: I11.0 Hypertensive heart disease with heart failure (principal); J96.01 Acute respiratory failure with hypoxia; E87.1 Hypo-osmolality and hyponatremia; F17.213 Nicotine dependence, cigarettes, with withdrawal; I50.43 Acute on chronic combined systolic (congestive) and diastolic (congestive) heart failure; I42.9 Cardiomyopathy, unspecified; I08.1 Rheumatic disorders of both mitral and tricuspid valves; Z91.19 Patient's noncompliance with other medical treatment and regimen

== ENCOUNTER 2019-11-07 08:18 | Inpatient (IN) | payer MEDICARE ==
[~2019-11-07] VITALS: Ht 175.3 cm; Wt 76.6 kg
[~2019-11-07 08:18] MED LIST: K-TAB10 MEQ PO; LASIX40 MG PO
[2019-11-07 08:52] LABS: BASOPHILS 0.6 % (0-2); HEMATOCRIT 38.7 % (42.0-54.0); HEMOGLOBIN 12.6 g/dL (13.5-17.5); IMMATURE GRANULOCYTES 0.4 % (0-5); LYMPHOCYTES 23.7 % (15-50); MCHC 32.6 g/dL (31.0-37.0); MEAN PLATELET VOLUME 9.7 fL (7.4-10.4); MONOCYTES 8.4 % (2-11); NEUTROPHILS 64.9 % (40-80); RBC 4.84 10x6/uL (4.20-6.10); RDW 15.3 % (11.5-14.5)
[2019-11-07 09:01] LABS: PLATELET COUNT 242 10x3/uL (130-400)
[2019-11-07 09:03] LABS: CALC OSMOLALITY 277 mosm/kg (275-300); CALCIUM 8.1 mg/dL (8.5-10.1); CHLORIDE - SERUM 104 mmol/L (98-107); CREATININE - SERUM 1.1 mg/dL (0.6-1.3); GLUCOSE 119 mg/dL (74-106); INR 1.15 (0.85-1.17); POTASSIUM - SERUM 3.8 mmol/L (3.5-5.1); PROTIME 14.6 SECONDS (11.6-15.0); SODIUM 139 mmol/L (136-145); UREA NITROGEN 11 mg/dL (7-18); eGFR NON AFRICAN AMERICAN 78 mL/min (90-120)
[2019-11-07 09:04] LABS: APTT 29.4 SECONDS (22.8-39.4)
[2019-11-07 09:18] LABS: ALBUMIN 2.8 g/dL (3.4-5.0); ALKALINE PHOSPHATASE 84 U/L (46-116); ALT (SGPT) 60 U/L (10-68); BILIRUBIN - TOTAL 0.37 mg/dL (0.2-1.3); CKMB 1.7 U/L (0.0-3.6); CREATINE KINASE 146 UL (21-232); LIPASE 208 U/L (73-393); MAGNESIUM - SERUM 2.1 mg/dL (1.8-2.4); PRO BNP 3726 pg/mL (0-125); PROTEIN - SERUM 6.4 g/dL (6.4-8.2)
[2019-11-07 09:34] LABS: UDS - AMPHET NEGATIVE QUAL (NEGATIVE); UDS - BARB NEGATIVE QUAL (NEGATIVE); UDS - BENZO NEGATIVE QUAL (NEGATIVE); UDS - COCAINE NEGATIVE QUAL (NEGATIVE); UDS - OPIATE NEGATIVE QUAL (NEGATIVE); UDS - PCP NEGATIVE QUAL (NEGATIVE); UDS - THC POSITIVE QUAL (NEGATIVE)
[2019-11-07 10:02] LABS: APPEARANCE CLEAR (CLEAR); COLOR YELLOW (YELLOW); NITRITE NEGATIVE (NEGATIVE); SPECIFIC GRAVITY 1.025 (1.005-1.020)
[2019-11-07 10:03] LABS: BACTERIA FEW /hpf (NEGATIVE); BILIRUBIN NEGATIVE (NEGATIVE); EPITHELIAL CELLS OCC /hpf (0-5); GLUCOSE NEGATIVE (NEGATIVE); KETONE NEGATIVE (NEGATIVE); PROTEIN 2+ mg/dL (NEGATIVE); RED CELLS - URINE RARE /hpf (0-5); UROBILINOGEN NORMAL (NORMAL); WHITE CELLS - URINE 0-5 /hpf (NEGATIVE)
--- NOTE | 2019-11-07 11:45 | NUR ---
RECEIVED PT TO ROOM 2118 VIA W/C FROM ER DX CHF PT AAOX4 RESP NOTED SOB REFUSED O2 AT THIS TIME EXPLAINED IF O2 DROPPED BELOW 90% WE WOULD HAVE TO PLACE PT ON O2 STATES UNDERSTANDING DENIES ANY PAIN OR NEEDS AT THIS TIME
[2019-11-07 12:57] VITALS: BMI 20.7
[2019-11-07 13:44] VITALS: BP 128/94
--- NOTE | 2019-11-07 14:49 | NUR ---
DENIES NEEDS AT THIS TIME EXCEPT WANTING SOME ORANGE JUICE. GIVEN.
[2019-11-07 14:54] LABS: CKMB 2.4 U/L (0.0-3.6); CREATINE KINASE 175 UL (21-232)
--- NOTE | 2019-11-07 16:51 | NUR ---
COREG HELD FOR BLOOD PRESSURE 104/68.
[2019-11-07 17:49] VITALS: BP 104/68
--- NOTE | 2019-11-07 19:30 | NUR ---
RECEIVED BEDSIDE REPORT. PATIENT IS ALERT AND ORIENTED, RESTING COMFORTABLY IN BED. RESPIRATIONS ARE EVEN AND UNLABORED. NO S/S OF DISTRESS. NO C/OPAIN. CALL LIGHT WITHIN REACH. WILL CPOC.
[2019-11-07 20:00] VITALS: BP 101/62
[2019-11-07 20:18] LABS: CKMB 1.9 U/L (0.0-3.6); CREATINE KINASE 157 UL (21-232)
[2019-11-08] VITALS: BP 101/51
--- NOTE | 2019-11-08 02:46 | NUR ---
PATIENT RESTING COMFORTABLY IN BED. RESPIRATIONS ARE EVEN AND UNLABORED. NO S/S OF DISTRESS. NO C/O PAIN. CALL LIGHT WITHIN REACH
[2019-11-08 04:00] VITALS: BP 101/56
[2019-11-08 06:34] LABS: BASOPHILS 0.5 % (0-2); EOSINOPHILS 2.7 % (0-7); HEMATOCRIT 42.4 % (42.0-54.0); HEMOGLOBIN 13.9 g/dL (13.5-17.5); IMMATURE GRANULOCYTES 0.3 % (0-5); LYMPHOCYTES 28.3 % (15-50); MCH 26.1 pg (26.0-34.0); MCHC 32.8 g/dL (31.0-37.0); MCV 79.7 fL (80.0-100.0); MEAN PLATELET VOLUME 10.5 fL (7.4-10.4); MONOCYTES 12.2 % (2-11); PLATELET COUNT 275 10x3/uL (130-400); RBC 5.32 10x6/uL (4.20-6.10); RDW 15.3 % (11.5-14.5); WBC 6.6 10x3/uL (4.8-10.8)
[2019-11-08 06:54] LABS: ANION GAP 13.2 mmol/L (8-16); CALCIUM 8.7 mg/dL (8.5-10.1); CARBON DIOXIDE 28.5 mmol/L (21.0-32.0); CREATININE - SERUM 1.2 mg/dL (0.6-1.3); MAGNESIUM - SERUM 2.1 mg/dL (1.8-2.4); PHOSPHOROUS 4.7 mg/dL (2.5-4.9); POTASSIUM - SERUM 3.7 mmol/L (3.5-5.1)
--- NOTE | 2019-11-08 08:22 | NUR ---
ALERT AND ORIENTED. TELEMERTY SHOWS ST101. ROOM AIR. LEFT HAND IV WITH DOBUTAIME AT 7 AND BUMEX AT 3.5. C/O HEADACHE , TYLENOL GIVEN FOR RELIEF
[2019-11-08 09:46] VITALS: BP 108/69
[2019-11-08 13:48] VITALS: Ht 175.3 cm; Wt 76.6 kg
--- NOTE | 2019-11-08 14:40 | EC ---
PATIENT:TRAM BYERS DATE OF SERVICE: 11/07/19 SEX: M MEDICAL RECORD: [id number] DATE OF : [birth year] LOCATION:D.M2 D.211 AGE OF PATIENT: 44 ADMISSION DATE: 11/07/19 REFERRING PHYSICIAN: INTERPRETING PHYSICIAN: NANETTE CRYSTAL MD ECHOCARDIOGRAM REPORT ECHO CHARGES 4 ECHO COMPLETE Date: 11/07/19 CLINICAL DIAGNOSIS: CHF ECHOCARDIOGRAPHIC MEASUREMENTS (adult normal given) AC root (d.<3.7cm) 3.3 cm LV Septum d (<1.2 cm> 1.2 cm Valve Excursion 1.9 cm LV Septum (systole) 1.6 cm Left Atria (s.<4.0cm> 4.8 cm LVPW d(<1.2cm) 1.0 cm RV (d.<2.3cm) 2.7 cm LVPW (sytole) 1.6 cm LV diastole(<5.6CM) 8.0 cm MV E-F(>70mm/sec) cm LV systole 6.5 cm LVOT Diameter 1.8 cm MV exc.(>10mm) cm Est.ejection fraction (50-75%) % DOPPLER: LVIT cm/sec A cm/sec E 158 cm/sec LA cm/sec RVSP 55.0 mmHg LVOT 60.0 cm/sec AOP1/2T m/s Asc. Ao 89.0 cm/sec RVOT 37.0 cm/sec RA cm/sec PA 51.0 cm/sec AV Gradient Peak 3.2 mmHg AV Mean 1.4 mmHg AV Area 2.1 cm MV Gradient Peak 10.1 mmHg MV Mean 3.5 mmHg MV Area cm COMMENTS: Adjunct Business Instructor: 1 FROYLAN MORALESOE Exchange Administrator: 3 Dr. Crowder TAPE# PACS Pericardial Effusion N DATE OF SERVICE: Borderline LVH. LV internal dimension is dilated. 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 Aortic valve is tricuspid. No evidence of stenosis by Doppler interrogation. Mild AI by color flow imaging. Left atrium is dilated at 4.8 cm. Mitral valve shows no prolapse, severe MR. Right-sided chambers are grossly normal. [id number] TR. TRANSINT:[id number] Voice Confirmation ID: [id number] DOCUMENT ID: [id number] ECHOCARDIOGRAM REPORT [id number] TRAM BYERS GREGORY A MD at 1440 CC: [id number] DICTATION DATE: 11/07/19 1257 MOLDING LINE ASSISTANT: 11/07/19 1404 ADM IN [facility] [address] [place] [id number]
[2019-11-08 14:56] VITALS: BP 113/70
--- NOTE | 2019-11-08 18:38 | NUR ---
NO CHANGE THIS 12 HOURS. STILL HAS BUMEX DRIP AND DOBUTAMINE INFUSING. DENIES ANY NEEDS
[2019-11-08 20:00] VITALS: BP 101/67
--- NOTE | 2019-11-09 02:40 | NUR ---
URINAL PROVIDED TO OBTAIN URINE SPECIMEN FOR ORDERED LABS.
[2019-11-09 04:00] VITALS: BP 107/66
[2019-11-09 06:11] LABS: BASOPHILS 0.9 % (0-2); EOSINOPHILS 7.7 % (0-7); HEMATOCRIT 46.3 % (42.0-54.0); HEMOGLOBIN 15.3 g/dL (13.5-17.5); IMMATURE GRANULOCYTES 0.3 % (0-5); LYMPHOCYTES 33.9 % (15-50); MCH 26.2 pg (26.0-34.0); MCV 79.1 fL (80.0-100.0); MONOCYTES 12.1 % (2-11); NEUTROPHILS 45.1 % (40-80); PLATELET COUNT 301 10x3/uL (130-400); RBC 5.85 10x6/uL (4.20-6.10); RDW 15.6 % (11.5-14.5); WBC 6.8 10x3/uL (4.8-10.8)
[2019-11-09 06:29] LABS: ANION GAP 16.6 mmol/L (8-16); CALCIUM 9.2 mg/dL (8.5-10.1); CARBON DIOXIDE 25.4 mmol/L (21.0-32.0); CREATININE - SERUM 1.2 mg/dL (0.6-1.3); MAGNESIUM - SERUM 2.2 mg/dL (1.8-2.4); PHOSPHOROUS 5.4 mg/dL (2.5-4.9)
[2019-11-09 08:54] VITALS: BP 84/56
--- NOTE | 2019-11-09 09:20 | NUR ---
URINE SPECIMEN COLLECTED AND TAKEN TO LAB. GIOVANNY ALVES
[2019-11-09 12:00] VITALS: BP 96/65
--- NOTE | 2019-11-09 14:54 | NUR ---
IV RESTARTED TO RIGHT ARM WITH 22 GAUGE CATH X 1 STICK AND FLUSHED WITH NS. LINE IS PATENT.
[2019-11-09 16:00] VITALS: BP 106/68
--- NOTE | 2019-11-09 20:00 | NUR ---
REPORT AND INITIAL ROUNDS COMPLETED. IV BUMEX INFUSING TO RFA. PT ALERT/ORIENTED. VOICING NO C/O. CALL LIGHT IN REACH. CPOC.
[2019-11-09 20:30] VITALS: BP 92/61
[2019-11-10] VITALS: BP 93/66
[2019-11-10 04:50] VITALS: BP 100/72
[2019-11-10 05:36] LABS: BASOPHILS 1.3 % (0-2); EOSINOPHILS 8.1 % (0-7); HEMATOCRIT 46.7 % (42.0-54.0); HEMOGLOBIN 15.6 g/dL (13.5-17.5); IMMATURE GRANULOCYTES 0.6 % (0-5); LYMPHOCYTES 40.5 % (15-50); MCH 26.2 pg (26.0-34.0); MCHC 33.4 g/dL (31.0-37.0); MCV 78.4 fL (80.0-100.0); MEAN PLATELET VOLUME 9.8 fL (7.4-10.4); NEUTROPHILS 36.5 % (40-80); PLATELET COUNT 340 10x3/uL (130-400); RBC 5.96 10x6/uL (4.20-6.10); RDW 14.9 % (11.5-14.5)
[2019-11-10 06:12] LABS: ANION GAP 15.1 mmol/L (8-16); CALCIUM 8.7 mg/dL (8.5-10.1); CARBON DIOXIDE 24.4 mmol/L (21.0-32.0); CREATININE - SERUM 1.3 mg/dL (0.6-1.3); MAGNESIUM - SERUM 2.2 mg/dL (1.8-2.4); PHOSPHOROUS 5.5 mg/dL (2.5-4.9); POTASSIUM - SERUM 4.5 mmol/L (3.5-5.1)
--- NOTE | 2019-11-10 06:43 | NUR ---
PT RESTING WITH NO DISTRESS. NO CHANGE FROM INITIAL SHIFT ASSESSMENT. CPOC.
[2019-11-10 11:07] VITALS: BP 105/75
[2019-11-10] MEDS ORDERED: FLAGYL500 MG PO (11:16)
[2019-11-10] MEDS ORDERED: LISINOPRIL10 MG PO (11:17)
[2019-11-10] MEDS ORDERED: COREG 3.1253.125 MG PO (11:17)
--- NOTE | 2019-11-10 13:36 | NUR ---
IV AND TELEMETRY DCD. DC PLANS GIVEN. UNDERSTANDING VOICED. LEAVING HOSPITOL WITH BROTHER.
--- NOTE | 2019-11-10 18:12 | MORECARE ---
CASE MANAGEMENT DISCHARGE SUMMARY PATIENT: TRAM BYERS UNIT: [id number] ADM DATE: 11/07/19 AGE: 44 : 77 SEX: M ROOM/BED: D.2119 AUTHOR: TAVIA GONZALEZ PHYSICIAN: REFERRING PHYSICIAN: INEZ LAWSON MD DATE OF SERVICE: 11/10/19 Discharge Plan Patient Name: TRAM BYERS Facility: [facility]:[place] : 1975 Planned Disposition: Home Anticipated Discharge Date: Discharge Date: 11/10/2019 Expected LOS: Initial Reviewer: [email or web address] Initial Review Date: 11/10/2019 Generated: 11/10/19 7:11 pm DCPIA - Discharge Planning Initial Assessment Updated by [email or web address]: Yoselyn Lindsey on 11/10/19 6:11 pm * Is the patient Alert and Oriented? Yes * PCP NO PCP * [facility] * Preadmission Environment Home Alone * ADLs Independent * Equipment None * List name and contact numbers for known caregivers / representatives who currently or will assist patient after discharge: TAMMI EARL [facility] [phone] * Verbal permission to speak to the caregivers and representatives has been obtained from the patient. Yes * Community resources currently utilized None * Additional services required to return to the preadmission environment? No * Can the patient safely return to the preadmission environment? Yes * Has this patient been hospitalized within the prior 30 days at any hospital? No Coverage Notice Reviewer: [email or web address] - Yoselyn Lindsey Notice Issued Date-Time: 11/10/2019 12:02 Notice Type: IM Discharge Notice Notice Delivered To: Patient Relationship to Patient: Self Ecological Modeler Name: Delivery Method: HAND - Hand Delivered Geetha Days: Prior Verbal Notification: Recipient Understood Notice: Yes Recipient Signature: Yes Med Rec Note Co-signed by Attending: Coverage Notice Comment: Patient Name: TRAM BYERS Page 49719 at 1812 All edits/amendments must be made on the electronic document DICTATION DATE: 11/10/191810 CHURCH WARDEN: JERRY 11/10/191810 RPT#: [id number] DC DATE:11/10/19 STATUS: DIS IN [facility] [address] [facility] [place] [address] END OF REPORT
--- NOTE | 2019-11-10 18:24 | MORECARE ---
CASE MANAGEMENT DISCHARGE SUMMARY PATIENT: TRAM BYERS UNIT: [id number] ADM DATE: 11/07/19 AGE: 44 : 77 SEX: M ROOM/BED: D.8986 AUTHOR: LISA,DOC PHYSICIAN: REFERRING PHYSICIAN: INEZ LAWSON MD DATE OF SERVICE: 11/10/19 Discharge Plan Patient Name: TRAM BYERS Facility: [facility]:[place] : 1975 Planned Disposition: Home Anticipated Discharge Date: Discharge Date: 11/10/2019 Expected LOS: Initial Reviewer: [email or web address] Initial Review Date: 11/10/2019 Generated: 11/10/19 7:24 pm Comments DCP- Discharge Planning Updated by [email or web address]: Yoselyn Lindsey on 11/10/19 5:[address] Patient Name: TRAM BYERS Admission Status: ER Accout number: [id number] Admission Date: 11-07-2019 : 1975 Admission Diagnosis: Attending: INEZ LAWSON Current LOS: 3 Anticipated DC Date: Planned Disposition: Home Primary Insurance: MEDICARE A & B Discharge Planning Comments: CM met with patient at bedside after explaining CM role and obtaining verbal consent. Patient lives at home alone where he is independent with his care and plans to return there upon discharge. Patient feels this would be a safe discharge. CM discussed availability / needs of home health and medical equipment. Patient denies any discharge needs at this time. Patient states he will have his family drive him home upon discharge. CM will continue to follow and assist as needed with discharge planning / needs. D/C IMM signed 11/10/19 @ 1202 Full Stack Python Developer: Yoselyn Lindsey DCPIA - Discharge Planning Initial Assessment Updated by [email or web address]: Yoselyn Lindsey on 11/10/19 6:11 pm * Is the patient Alert and Oriented? Yes * PCP NO PCP * Pharm[facility] [address] * Preadmission Environment Home Alone * ADLs Independent * Equipment None * List name and contact numbers for known caregivers / representatives who currently or will assist patient after discharge: TAMMI EARL [phone] * Verbal permission to speak to the caregivers and representatives has been obtained from the patient. Yes * Community resources currently utilized None * Additional services required to return to the preadmission environment? No * Can the patient safely return to the preadmission environment? Yes * Has this patient been hospitalized within the prior 30 days at any hospital? No Coverage Notice Reviewer: [email or web address] Caleb Lindsey Notice Issued Date-Time: 11/10/2019 12:02 Notice Type: IM Discharge Notice Notice Delivered To: Patient Relationship to Patient: Self Fullerette Name: Delivery Method: HAND - Hand Delivered Geetha Days: Prior Verbal Notification: Recipient Understood Notice: Yes Recipient Signature: Yes Med Rec Note Co-signed by Attending: Coverage Notice Comment: Last DP export: 11/10/19 5:12 p Patient Name: TRAM BYERS Page 97839 at 3934 All edits/amendments must be made on the electronic document DICTATION DATE: 11/10/191823 ELECTROTYPE CASTER: JERRY 11/10/191823 RPT#: [id number] DC DATE:11/10/19 STATUS: DIS IN [facility] [address] [place] [address] END OF REPORT
--- NOTE | 2019-11-10 19:11 | MORECARE ---
CASE MANAGEMENT DISCHARGE SUMMARY PATIENT: TRAM BYERS UNIT: [id number] ADM DATE: 11/07/19 AGE: 44 : 77 SEX: M ROOM/BED: D.8940 AUTHOR: LISA,DOC PHYSICIAN: REFERRING PHYSICIAN: INEZ LAWSON MD DATE OF SERVICE: 11/10/19 Discharge Plan Patient Name: TRAM BYERS Facility: [facility]:[place] : 1975 Planned Disposition: Home Anticipated Discharge Date: Discharge Date: 11/10/2019 Expected LOS: Initial Reviewer: [email or web address] Initial Review Date: 11/10/2019 Generated: 11/10/19 8:11 pm Comments DCP- Discharge Planning Updated by [email or web address]: Yoselyn Lindsey on 11/10/19 5:[address] Patient Name: TRAM BYERS Admission Status: ER Accout number: [id number] Admission Date: 11-07-2019 : 1975 Admission Diagnosis: Attending: INEZ LAWSON Current LOS: 3 Anticipated DC Date: Planned Disposition: Home Primary Insurance: MEDICARE A & B Discharge Planning Comments: CM met with patient at bedside after explaining CM role and obtaining verbal consent. Patient lives at home alone where he is independent with his care and plans to return there upon discharge. Patient feels this would be a safe discharge. CM discussed availability / needs of home health and medical equipment. Patient denies any discharge needs at this time. Patient states he will have his family drive him home upon discharge. CM will continue to follow and assist as needed with discharge planning / needs. D/C IMM signed 11/10/19 @ 1202 Inter Fold Roll Cutter: Yoselyn Lindsey DCPIA - Discharge Planning Initial Assessment Updated by [email or web address]: Yoselyn Lindsey on 11/10/19 6:11 pm * Is the patient Alert and Oriented? Yes * PCP NO PCP * [facility] * Preadmission Environment Home Alone * ADLs Independent * Equipment None * List name and contact numbers for known caregivers / representatives who currently or will assist patient after discharge: TAMMI EARL [phone] * Verbal permission to speak to the caregivers and representatives has been obtained from the patient. Yes * Community resources currently utilized None * Additional services required to return to the preadmission environment? No * Can the patient safely return to the preadmission environment? Yes * Has this patient been hospitalized within the prior 30 days at any hospital? No Coverage Notice Reviewer: [email or web address] Caleb Lindsey Notice Issued Date-Time: 11/10/2019 12:02 Notice Type: IM Discharge Notice Notice Delivered To: Patient Relationship to Patient: Self Table Assembler Name: Delivery Method: HAND - Hand Delivered Geetha Days: Prior Verbal Notification: Recipient Understood Notice: Yes Recipient Signature: Yes Med Rec Note Co-signed by Attending: Coverage Notice Comment: Last DP export: 11/10/19 5:24 p Patient Name: TRAM BYERS Page 72260 at 191 All edits/amendments must be made on the electronic document DICTATION DATE: 11/10/191910 SAFETY ASSISTANT: JERRY 11/10/191910 RPT#: [id number] DC DATE:11/10/19 STATUS: DIS IN [facility] [address] [place] [address] END OF REPORT
== END 2019-11-10 13:37 | disposition home or self-care (01) | DRG 292 ==
LOC: D.ER 08:18 → D.M2 10:27 → D.SDCHOLD 14:02 → D.M2 14:02
PROVIDERS: Emergency Medicine; ADMIT Internal Medicine Nephrology; ATTEND Internal Medicine Nephrology
DX: I11.0 Hypertensive heart disease with heart failure (principal); F17.213 Nicotine dependence, cigarettes, with withdrawal; I50.23 Acute on chronic systolic (congestive) heart failure; D64.9 Anemia, unspecified; A59.9 Trichomoniasis, unspecified; I42.9 Cardiomyopathy, unspecified

== ENCOUNTER 2019-12-16 18:33 | Inpatient (IN) | payer MEDICARE ==
[~2019-12-16] VITALS: Ht 175.3 cm; Wt 84.1 kg
--- NOTE | ~2019-12-16 | HEMODYNAMI ---
PATIENT:TRAM BYERS MEDICAL RECORD: [id number] : 77 LOCATION:[facility] D.2136 ADMISSION DATE: 12/16/19 Generatedon:12/17/201916:42 Patient name: TRAM BYERS Patient #: [id number] SSN: D OB: 1975 Date of study: 12/17/2019 Page: Of Hemodynamic Procedure Report Patient Data Patient Demographics Procedure consent was obtained First Name: TRAM Gender: Male Last Name: ZEESHAN : 1975 Middle Initial: E Age: 44 year(s) Patient #: [id number] Race: Black Additional ID: [id number] Contact details [address]: [address] [place] [address] State: [place] City: [place] Zip code: [address] Past Medical History History of disease Date Diagnosis Comments CHF Allergies: No known allergies Admission Admission Data Admission Date: 12/16/2019 Admission Time: 20:48 Admit Source: Other Room #: D.2136 Height (in.): 69 BSA: 2 (m2) Height (cm.): 175.26 BMI: 27.32 (kg/m2) Weight (lbs.): 185 Weight (kg.): 83.91 Lab Results Lab Result Date: 12/17/2019 Lab Result Time: 0:00 Biochemistry Name Units Result Min Max Creatinine mg/dl 1.5 --(----)-* 0.6 1.3 eGFR ml/min 66 *-(----)-- 90 120 AM CBC Name Units Result Min Max Hematocrit % 41.9 -*(----)-- 42 54 Hemoglobin g/dl 13.2 -*(----)-- 13.5 17.5 Procedure Procedure Types Cath Procedure Diagnostic Procedure [facility] w/Coronaries Sedation Charges Moderate Sedation up to 15 minutes Procedure Description Procedure Date Procedure Date: 12/17/2019 Procedure Start Time: 16:28 Procedure End Time: 16:39 Procedure Staff Name Function Rubio Chairez MD Performing Physician Meme Enrique RT Scrub Kelli Billings RT Monitor Meredith Alexy RT Delivery Driver/Customer Service Melva Bae RN Nurse Procedure Data Cath Procedure Fluoroscopy Diagnostic fluoroscopy Total fluoroscopy Time: 1.9 time: 1.9 min min Diagnostic fluoroscopy Total fluoroscopy dose: 427 dose: 427 mGy mGy Contrast Material Contrast Material Type Amount (ml) Isovue 300 63 Entry Location Entry Primary Successful Side Size Upsize Upsize Entry Closure Succes sful Closure Location (Fr) 1 (Fr) 2 (Fr) Remarks Device Remarks Femoral Right 5 Fr Exoseal artery Estimated blood loss: 5 ml Diagnostic catheters Device Type Used For End Catheter Placement MULTIPACK JL 4.0 5Fr Procedure catheter MULTIPACK 3DRC 5Fr Procedure catheter MULTIPACK Pigtail 5 Fr Procedure catheter Procedure Complications No complications Procedure Medications Medication Administration Route Dosage 0.9% NaCl I.V. 100 ml/hr Oxygen etCO2 Nasal cannula 2 l/min Heparin Flush Bag added to field 2 bags (1000units/500ml NS) Lidocaine 2% added to field 20 Versed I.V. 2 mg Fentanyl I.V. 100 mcg Hemodynamics Rest BSA: 2 (m2) HGB: 13.2 (g/dl) O2 Consumption: Estimated: 255.36 (ml/min) O2 Consu mption indexed: Estimated:127.68 (ml/min/m) Heart Rate: 87 (bpm) Pressure Samples Time Site Value (mmHg) Purpose Heart Use Rate(bpm) 16:35 LV 85/11,22 Snapshot 87 16:35 AO 90/64(74) Pullback 81 16:35 LV 97/14,26 Pullback 81 Gradients Valve Time Site 1 Site 2 Mean SEP/DFP Peak To Heart Use (mmHg) (sec/min) Peak Rate (mmHg) (bpm) Aortic 16:35 LV AO 11 17 7 81 97/14,26 90/64(74) Calculations Valve P-P Mean Valve Index Valve Source Name Gradient Area Flow (cm2) Aortic 7 11 7 11 Snapshots Pre Cath Intra NCS Post Cath Vital Signs Time Heart Resp SPO2 etCO2 NIBP Rhythm Pain Sedation Rate (ipm) (%) (mmHg) (mmHg) Status Level (bpm) 16:16:06 86 16 100 13.4 108/74(87) NSR 0 (11) 10(A) , No pain 16:20:11 90 20 96 26.9 106/73(87) NSR 0 (11) 10(A) , No pain 16:24:19 89 15 95 28.4 101/68(81) NSR 0 (11) 10(A) , No pain 16:28:27 81 14 97 18.7 104/67(82) NSR 0 (11) 10(A) , No pain 16:32:35 82 15 96 23.1 105/71(97) NSR 0 (11) 10(A) , No pain 16:36:43 82 16 97 24.6 107/71(91) NSR 0 (11) 10(A) , No pain Medications Time Medication Route Dose Verified Delivered Reason Notes Eff ectiveness by by 16:14:26 0.9% NaCl I.V. 100 Antolin Antolin Per ml/hr Raleigh Storey physician RN RN 16:14:34 Oxygen etCO2 2 Antolin Antolin for low 02 Nasal l/min Lorigan Lorigan sats cannula RN RN 16:14:45 Heparin Flush added 2 Antolin Antolin used for Bag to bags Lorigan Lorigan procedure (1000units/500ml field RN RN NS) 16:14:55 Lidocaine 2% added 20ml Antolin Antolin for local to vial Lorigan Lorigan anesthetic field RN RN 16:24:49 Versed I.V. 2 mg Antolin Antolin for Lorigan Lorigan sedation RN RN 16:24:57 Fentanyl I.V. 100 Antolin Antolin for mcg Lorigan Lorigan sedation RN class a regional truck driver Log Time Note 15:26:58 Informed consent obtained and on chart 15:29:23 Admit Source: Other 15:30:34 ACC Patient presents with Symptoms unlikely to be ischemic CCS Anginal Class 3--Marked limitation of physical activity, angina occurs with ordinary activity.. 15:30:39 Procedure Status Urgent Heart Cath (IP). 15:30:42 Time tracking: Regular hours (M-F 7:00 - 5:00) 15:31:02 Plan of Care:Hemodynamics will remain stable., Cardiac rhythm will remain stable., Comfort level will be maintained., Respiratory function will remain adequate., Patient/ family verbilizes understanding of procedure., Procedure tolerated without complication., Recovers from procedure without complications.. 15:31:15 Full Disclosure recording started 15:31:20 H&P Date Dictated: 12/17/2019 Within 30 days and on chart.. 15:31:33 Patient allergic to No known allergies 15:31:36 Is the patient allergic to Iodine/contrast media? No. 15:31:38 Was the patient premedicated? N/A 15:35:29 Patient Height : 69 inches 15:35:33 Patient Weight : 185 lbs 15:36:22 Lab Result : Hemoglobin 13.2 g/dl 15:36:22 Lab Result : eGFR AM 66 ml/min 15:36:22 Lab Result : Creatinine 1.5 mg/dl 15:36:22 Lab Result : Hematocrit 41.9 % 15:39:50 Stress Test: no; N/A ? 15:39:54 Risk of Mortality: 0.9 15:39:57 Risk of blood transfusion: 0.9 15:40:00 Risk of NAVEED: 5.5 15:59:46 Antolin Storey RN sent for patient. Start room use. 16:07:41 Patient received from Med II to CCL 1 Alert and oriented. Tansferred to table in Supine position. 16:07:43 Warm blankets applied, and rebecca hugger turned on for patient comfort. 16:07:44 Correct patient and procedure confirmed by team. 16:07:44 ECG and BP/O2 sat monitors applied to patient. 16:14:26 0.9% NaCl 100 ml/hr I.V. was administered by Antolin Storey RN; Per physician; Verbal order read back and verified. 16:14:34 Oxygen 2 l/min etCO2 Nasal cannula was administered by Antolin Storey RN; for low 02 sats; Verbal order read back and verified. 16:14:45 Heparin Flush Bag (1000units/500ml NS) 2 bags added to field was administered by Antolin Storey RN; used for procedure; Verbal order read back and verified. 16:14:55 Lidocaine 2% 20ml vial added to field was administered by Antolin Storey RN; for local anesthetic; Verbal order read back and verified. 16:15:02 Vital chart was started 16:15:08 Baseline sample Acquired. 16:15:16 Pre-procedure instructions explained to patient. 16:15:18 Pre-op teaching completed and patient verbalized understanding. 16:15:21 Family unavailable. 16:15:23 Patient NPO since Midnight. 16:15:27 Is patient on blood thinner?N/A 16:15:30 Patient diabetic? No. 16:15:31 If diabetic: On Metformin? N/A 16:15:35 Snore? Yes 16:15:36 Sleep apnea? Yes 16:15:37 Deviated septum? No 16:15:39 Opens mouth fully? Yes 16:15:40 Sticks out tongue? Yes 16:15:43 Airway obstruction? No ? 16:15:47 Dentures? No ? 16:15:55 Pre procedure: right dorsailis pedis pulse 2+ Normal; easily identifiable; not easily obliterated 16:15:58 Patient pain scale 0/10 ?. 16:16:07 IV patent on arrival in right wrist with 0.9% NaCl at [facility]. 16:16:14 Right groin area was prepped with chlora-prep and draped in sterile fashion 16:16:16 Alarms reviewed by R. N. 16:16:17 Sharps counted by scrub and verified by R.N. 16:16:23 Use device set Femoral Dx 16:16:25 ACIST Syringe (65505) opened to sterile field. 16:16:25 Bag Decanter (2002S) opened to sterile field. 16:16:26 Medline Cath Pack ([id number]) opened to sterile field. 16:16:28 ACIST Hand Control (74449) opened to sterile field. 16:16:30 ACIST Manifold (38843) opened to sterile field. 16:16:30 DIAGNOSTIC Multipack 5Fr catheter set ([id number]) opened to sterile field. 16:16:32 SHEATH 5FR Webster (DXP298) opened to sterile field. 16:16:33 EMERALD Guide Wire (780-524) opened to sterile field. 16:23:40 --------ALL STOP TIME OUT------ 16:23:41 Final Timeout: patient, procedure, and site verified with staff and physician. All members of the team are in agreement. 16:23:43 Right groin site verified by team. 16:24:00 Fire Safety Assessment: A--An alcohol-based skin anteseptic being used preoperatively., C--Open oxygen or nitrous oxide is being used., D--An ESU, laser, or fiber-optic light is being used. 16:24:05 Physical assessment completed. ASA score P 2 - A patient with mild systemic disease as per Rubio Chairez MD. 16:24:10 2) 60-89 Mildly reduced kidney function, and other findings (as for stage 1) point to kidney disease. 16:24:14 Maximum allowable contrast dose (3.7 X eGFR X 0.75)183 ml. 16:24:18 Sedation plan: IV Moderate Sedation Medication:Versed, Fentanyl 16:24:49 Versed 2 mg I.V. was administered by Antolin Storey RN; for sedation; Verbal order read back and verified. 16:24:57 Fentanyl 100 mcg I.V. was administered by Antolin Storey RN; for sedation; Verbal order read back and verified. 16:26:41 Zero performed for pressure channel P1 16:27:34 Procedure started. 16:28:05 Local anesthetic to right femoral artery with Lidocaine 2% by Rubio Chairez MD.INITIAL ACCESS ONLY 16:29:01 A 5 Fr sheath was inserted into the Right Femoral artery 16:29:52 A MULTIPACK JL 4.0 5Fr catheter was advanced over the wire and used for Procedure. 16:31:00 LCA angiography performed. 16:31:36 Catheter exchanged over wire. 16:31:41 A MULTIPACK 3DRC 5Fr catheter was advanced over the wire and used for Procedure. 16:33:08 RCA angiography performed. 16:33:09 Catheter exchanged over wire. 16:33:19 A MULTIPACK Pigtail 5 Fr catheter was advanced over the wire and used for Procedure. 16:34:41 LV gram done using MORRIS 16::43 Injector settings: Ml/sec: 10, Volume: 20, 16:35:16 LV hemodynamics recorded. 16:35:29 EF : 15 % 16:35:47 Catheter removed. 16:36:05 EXOSEAL 5Fr (EX500) opened to sterile field. 16:37:20 Sheath removed intact; hemostasis achieved with Exoseal to the Right Femoral artery. 16:37:25 Procedure ended.(Physican Out) 16:37:36 Fluoroscopy time 01.90 minutes. 16:37:40 Fluoroscopy dose: 427 mGy 16:37:40 Flurop Dose total: 427 16:37:46 Dose Area Product 20876 mGy/cm. 16:38:13 Contrast amount:Isovue 300 63ml. 16:38:14 Maximum allowable dose exceeded? No. 16:38:15 Sharps counted by scrub and verified by R.N. 16:38:18 Post-op/insertion site Right Femoral artery dressed using a 4 x 4 and Tegaderm. 16:38:20 Post-procedure physical assessment completed. ASA score P 2 - A patient with mild systemic disease as per Rubio Chairez MD. 16:38:24 Post procedure rhythm: sinus rhythm 16:38:26 Estimated blood loss: 5 ml 16:38:28 Post procedure instruction explained to patient.Patient verbalizes understanding. 16:38:28 Patient needs reinforcement of post procedure teaching. 16:38:44 Procedure type changed to Cath procedure, Diagnostic procedure, LHC, [facility] w/Coronaries, Sedation Charges, Moderate Sedation up to 15 minutes 16:39:01 Procedure and supply charges have been captured, reviewed, submitted and are correct. 16:39:05 Procedure Complication : No complications 16:39:07 Vital chart was stopped 16:39:08 [facility] Findings: mild to moderate CAD (<70%) 16:39:12 Operative report dictated upon procedure completion. 16:39:12 See physician's report for complete and final results. 16:39:15 Report given to PCU. 16:39:18 Patient transfered to PCU with Bed. 16:39:29 Procedure ended. 16:39:29 Full Disclosure recording stopped 16:39:32 End room use (Document Last) 16:40:14 End room use (Document Last) 16:40:52 End room use (Document Last) Device Usage Item Name Manufacture Quantity Catalog Hospital Part Current Minimal L ot# / Number Charge Number Stock Stock Serial# Code ACIST Acist 1 18382 890970 486461 738209 20 Syringe Medical (30346) Systems Inc Bag Microtek 1 118474 80594 922763 5 Decanter Medical Inc. () Medline Medline 1 [id number] 089683 06778 099348 5 Cath Pack ([id number]) ACIST Hand Acist 1 50205 023205 645029 434225 5 Control Medical (23753) Systems Inc ACIST Acist 1 46561 612182 212351 718432 5 Manifold Medical (16928) Systems Inc DIAGNOSTIC Cardinal 1 NT1050 950364 41025 133569 30 Multipack Netviewer 5Fr catheter set (OY6756) SHEATH 5FR Terumo 1 ORR406 172174 285484 086804 5 Webster (PIW371) EMERALD Cardinal 1 502-117 638105 231002 721443 5 Guide Wire [facility] (682-644) MULTIPACK Cardinal 1 471794 5 JL 4.0 5Fr [facility] catheter MULTIPACK Cardinal 1 747693 5 3DRC 5Fr [facility] catheter MULTIPACK Cardinal 1 325760 5 Pigtail 5 Health Fr catheter EXOSEAL 5Fr Cardinal 1 EX500 298022 727152 079809 10 (EX500) Health Signature [employer] [place] Stage Time Signature Unsigned Intra-Procedure 12/17/2019 Kelli Billings 4:40:14 PM RT(R) Intra-Procedure 12/17/2019 Melva Bae 4:40:52 PM RN Intra-Procedure 12/17/2019 Rubio Chairez MD 4:42:11 PM [id number] [place] [address]
--- NOTE | 2019-12-16 19:00 | NUR ---
BEDSIDE REPORT HANDED OFF VIA SBAR FROM ELINA PALOMO. RESPIRATORY AT BEDSIDE FOR BREATHING TREATMENT. PT STABLE AT TIME.
[2019-12-16 19:01] LABS: BASOPHILS 0.6 % (0-2); HEMATOCRIT 40.6 % (42.0-54.0); HEMOGLOBIN 13.2 g/dL (13.5-17.5); LYMPHOCYTES 41.7 % (15-50); MCHC 32.5 g/dL (31.0-37.0); MCV 73.8 fL (80.0-100.0); MEAN PLATELET VOLUME 10.3 fL (7.4-10.4); MONOCYTES 12.8 % (2-11); NEUTROPHILS 43.9 % (40-80); RDW 16.4 % (11.5-14.5); WBC 4.8 10x3/uL (4.8-10.8)
[2019-12-16 19:02] LABS: PLATELET COUNT 236 10x3/uL (130-400)
[2019-12-16 19:23] LABS: INR 1.45 (0.85-1.17); PROTIME 17.5 SECONDS (11.6-15.0)
[2019-12-16 19:25] LABS: CALC OSMOLALITY 281 mosm/kg (275-300); CALCIUM 8.6 mg/dL (8.5-10.1); CARBON DIOXIDE 24.4 mmol/L (21.0-32.0); CHLORIDE - SERUM 106 mmol/L (98-107); CREATININE - SERUM 1.4 mg/dL (0.6-1.3); GLUCOSE 126 mg/dL (74-106); POTASSIUM - SERUM 3.8 mmol/L (3.5-5.1); SODIUM 140 mmol/L (136-145); UREA NITROGEN 16 mg/dL (7-18); eGFR NON AFRICAN AMERICAN 59 mL/min (90-120)
[2019-12-16 19:43] LABS: ALBUMIN 2.8 g/dL (3.4-5.0); ALKALINE PHOSPHATASE 91 U/L (30-120); ALT (SGPT) 59 U/L (10-68); BILIRUBIN - TOTAL 0.74 mg/dL (0.2-1.3); CKMB 1.2 U/L (0.0-3.6); CREATINE KINASE 186 UL (21-232); PRO BNP 4126 pg/mL (0-125); PROTEIN - SERUM 7.1 g/dL (6.4-8.2)
[2019-12-16 19:45] LABS: TROPONIN-I < 0.017 ng/mL (0.000-0.060)
--- NOTE | 2019-12-16 20:16 | NUR ---
PT STABLE CALL LIGHT WITHIN REACH. WILL CONTINUE TO MONITOR.
--- NOTE | 2019-12-17 00:44 | NUR ---
RECIEVED REPORT FROM ER. ARRIVED TO ROOM ON A STRETCHER. IV TO RIGHT FA SL. PACEMAKER TO LT CHEST. ALERT AND ORIENTED X4. C/O HIS MEDICATIONS MAKING HIS STOMACH HURT. EDUCATED ON EATING CRACKERS OR SOMETHING BEFORE TAKING HIS MEDICATION TO HELP WITH STOMACH UPSET. STATES HIS APPETITE IS NOT GOOD. REPORTED FROM ER THAT HE RECEIVED A SANDWICH BOX AND ATE 100%. WHEN HE CAME TO FLOOR AND REQUESTED ANOTHER SANDWICH BOX. ATE ALL EXCEPT 1/2 SANDWICH. WHEN BEING QUESTIONED ABOUT HIS SKIN HE STATED "HE WAS COUGHING SOMETHING UP THE OTHER DAY AND BLEW SOMETHING OUT OF THE BACK OF HIS. SCALP IS INTACT. REQUESTED A SODA. SODA GIVEN TO HIM. BROTHER AT BEDSIDE. DENIES ANY OTHER NEEDS AT THIS TIME.
--- NOTE | 2019-12-17 08:00 | NUR ---
PT PULLED IV OUT, CATHETER WAS HANGING ON THE IV POLE WITH CATHETER TIP INTACT. NEW 2OG IV STARTED TO RT FA X1 STICK. BUMEX DRIP STARTED AGAIN. PT DENIES ANY NEEDS AT THIS TIME. CALL LIGHT IN REACH.
[2019-12-17 09:21] VITALS: Ht 175.3 cm; Wt 84.1 kg
[2019-12-17 09:50] LABS: BASOPHILS 0.4 % (0-2); EOSINOPHILS 0.9 % (0-7); HEMATOCRIT 41.9 % (42.0-54.0); HEMOGLOBIN 13.2 g/dL (13.5-17.5); IMMATURE GRANULOCYTES 0.2 % (0-5); MCH 23.6 pg (26.0-34.0); MCHC 31.5 g/dL (31.0-37.0); MEAN PLATELET VOLUME 10.5 fL (7.4-10.4); MONOCYTES 13.1 % (2-11); NEUTROPHILS 45.4 % (40-80); PLATELET COUNT 272 10x3/uL (130-400); RBC 5.59 10x6/uL (4.20-6.10); RDW 16.5 % (11.5-14.5); WBC 4.5 10x3/uL (4.8-10.8)
--- NOTE | 2019-12-17 09:58 | NUR ---
PER KRYSTAL RAVI APRN, PT CAN HAVE BREAKFAST, DOUBLE PORTION, AND THEN HEART CATH AT 1300. CONSENTS SIGNED BY PT AND PLACED ON CHART. PT DENIES ANY NEEDS AT THIS TIME. CALL LIGHT IN REACH, NAD NOTED, WILL CONTINUE TO MONITOR.
[2019-12-17 10:06] LABS: CALCIUM 8.2 mg/dL (8.5-10.1); CHOL - HDL RATIO 4.7 ratio (2.3-4.9); CREATININE - SERUM 1.5 mg/dL (0.6-1.3); POTASSIUM - SERUM 4.1 mmol/L (3.5-5.1)
[2019-12-17 10:07] LABS: ANION GAP 10.9 mmol/L (8-16); CARBON DIOXIDE 31.2 mmol/L (21.0-32.0)
--- NOTE | 2019-12-17 15:23 | NUR ---
PRE-OP MEDICATIONS GIVEN AT THIS TIME.
--- NOTE | 2019-12-17 16:04 | NUR ---
PT TO CASH CHECKER.
--- NOTE | 2019-12-17 17:02 | NUR ---
RECEIVED PT BACK TO ROOM 2136. VITAL SIGNS STABLE, PLACED PT ON FREQUENT VITAL SIGNS. RT GROIN DRESSING CDI, NO S/S OF BLEEDING OR HEMATOMA NOTED. INSTRUCTED PT TO REMAIN LAYING FLAT FOR 2HRS. PROVIDED PT WITH EYE WATER. PT DENIES ANY OTHER NEEDS AT THIS TIME. CALL LIGHT IN REACH, NAD NOTED,W ILL CONTINUE TO MONITOR.
--- NOTE | 2019-12-17 17:46 | NUR ---
WENT TO ASSSES PT GROIN. PT WAS SITTING UP EATING HIS DINNER AND HE HAD HIS PANTS BACK ON. STRESSED TO PT THE IMPORTANCE OF LAYING FLAT FOR 2HRS AND EXPLANIED THE RISK OF OF NOT LAYING FLAT. PT VERBALIZED UNDERSTANDING. RT GROIN DRESSING CDI NO CHANGES FROM PREVIOUS ASSESSMENT. CALL LIGHT IN REACH, NAD NOTED,WILL CONTINUE TO MONITOR.
[2019-12-17 17:52] LABS: % SATURATION 7 % (15-55); IRON 29 ug/dl (35-150); TOTAL IRON BIND CAPACITY 385 ug/dl (260-445); UNSAT IRON BIND CAPACITY 356 ug/dl (150-375)
[2019-12-17 18:08] LABS: UDS - AMPHET NEGATIVE QUAL (NEGATIVE); UDS - BARB NEGATIVE QUAL (NEGATIVE); UDS - BENZO POSITIVE QUAL (NEGATIVE); UDS - COCAINE NEGATIVE QUAL (NEGATIVE); UDS - OPIATE NEGATIVE QUAL (NEGATIVE); UDS - PCP NEGATIVE QUAL (NEGATIVE); UDS - THC NEGATIVE QUAL (NEGATIVE)
[2019-12-17 18:22] LABS: BILIRUBIN NEGATIVE (NEGATIVE); GLUCOSE NEGATIVE (NEGATIVE); KETONE NEGATIVE (NEGATIVE); NITRITE NEGATIVE (NEGATIVE); UROBILINOGEN NORMAL (NORMAL)
--- NOTE | 2019-12-17 18:43 | NUR ---
PAGED JLUIS EMMANUEL FLOOR TRADER.
--- NOTE | 2019-12-17 19:36 | NUR ---
EVENING ROUNDS COMPLETE. PT LAYING IN BED, NO SIGNS OF DISTRESS. AAOX4. PT DENIES ANY PAIN OR NEEDS AT THIS TIME. CL IN REACH, BED IN LOWEST POSITION.
[2019-12-18 06:51] LABS: BASOPHILS 0.2 % (0-2); EOSINOPHILS 1.2 % (0-7); HEMATOCRIT 37.3 % (42.0-54.0); HEMOGLOBIN 11.7 g/dL (13.5-17.5); IMMATURE GRANULOCYTES 0.2 % (0-5); LYMPHOCYTES 38.7 % (15-50); MCH 23.5 pg (26.0-34.0); MCHC 31.4 g/dL (31.0-37.0); MCV 75.1 fL (80.0-100.0); MEAN PLATELET VOLUME 9.9 fL (7.4-10.4); MONOCYTES 14.7 % (2-11); PLATELET COUNT 256 10x3/uL (130-400); RBC 4.97 10x6/uL (4.20-6.10); RDW 16.8 % (11.5-14.5); WBC 4.8 10x3/uL (4.8-10.8)
[2019-12-18 07:31] LABS: ANION GAP 9.9 mmol/L (8-16); CALCIUM 8.4 mg/dL (8.5-10.1); CARBON DIOXIDE 32.4 mmol/L (21.0-32.0); CREATININE - SERUM 1.3 mg/dL (0.6-1.3)
[2019-12-18 07:32] LABS: POTASSIUM - SERUM 3.3 mmol/L (3.5-5.1)
--- NOTE | 2019-12-18 08:26 | NUR ---
PT'S BP IS 81/70, NOTIFIED ROBERT HUGGINS APRN. NO NEW ORDERS AT THIS TIME, PT IN BED, EATING BREAKFAST, DENIES ANY NEEDS AT THIS TIME. CALL LIGHT IN REACH, NAD NOTED, WILL CONTINUE TO MONITOR.
[2019-12-18 09:00] VITALS: BP 81/70
--- NOTE | 2019-12-18 15:39 | NUR ---
PROVIDED VERBAL AND WRITTEN DISCHARGE TEACHING TO PT, WHO VERBALIZED UNDERSTANDING REGARDING TEACHING. D/C RT FA IV WITH CATHETET TIP INTACT. HEART MONITOR REMOVED AND TAKEN TO HOSPICE VOLUNTEER COORDINATOR. PT WAITING ON RIDE, INSTRUCTED PT TO NOTIFY NURSE WHEN RIDE IS HERE. PT CAME UP TO NURSES STATION ASKING WHERE A WAITING ROOM WAS AT. ASKED PT IF HIS RIDE WAS HERE AND PT STATED NO, BUT THEY TOLD TO WAIT IN THE WAITING AREA. THIS NURSE TOLD PT THAT PER POLICY HE HAS TO WAIT IN HIS ROOM UNTIL HIS RIDE IS HERE. PT STATED AGAIN THAT HE NEEDS TO GO WAIT IN THE WAITING AREA. NURSE RIP MARQUEZ RN TOLD PT THAT PER POLICY HIS HAS TO WAIT IN THE ROOM BECAUSE HE IS STILL OUR RESPONSIBILITY UNTIL HIS RIDE IS HERE TO PICK HIM UP. ONCE HIS RIDE IS HERE THEN WE CAN WHEEL HIM DOWN TO THE FRONT OR WALK HIM DOWN. PT STATED OK AND WALKED BACK TO HIS ROOM.
--- NOTE | 2019-12-18 15:52 | NUR ---
PT CAME TO NURSES STATION AND STATED THAT HIS RIDE WAS ON THEIR WAY AND TOLD HIM TO WAIT IN THE ED WAITING AREA. RIP MARQUEZ RN, ASKED PT IF HE NEW HOW FAR AWAY WAS HIS RIDE FROM THE HOSPITAL AND PT STATED " I DONT KNOW BUT THEY TOLD ME TO WAIT IN THE ED WAITING AREA." RIP MARQUEZ WALKED PT TO ER WAITING AREA AND IS GOING TO WAIT WITH PT UNTIL RIDE ARRIVES. PT LEFT UNIT WITH ALL BELONGINGS.
--- NOTE | 2019-12-18 16:18 | NUR ---
PT'S RIDE PICKED HIM UP AT 1617.
== END 2019-12-18 16:18 | disposition home or self-care (01) | DRG 287 ==
LOC: D.ER 18:33 → D.M2 20:48
PROVIDERS: Family Medicine; Internal Medicine Cardiovascular Disease; ADMIT Internal Medicine Nephrology; ATTEND Internal Medicine Nephrology
PROC: B2111ZZ Fluoroscopy of Multiple Coronary Arteries using Low Osmolar Contrast (ICD-10-PCS; principal; 2019-12-17)
PROC: B2151ZZ Fluoroscopy of Left Heart using Low Osmolar Contrast (ICD-10-PCS; 2019-12-17)
PROC: 4A023N7 Measurement of Cardiac Sampling and Pressure, Left Heart, Percutaneous Approach (ICD-10-PCS; 2019-12-17)
DX: I11.0 Hypertensive heart disease with heart failure (principal); F17.213 Nicotine dependence, cigarettes, with withdrawal; N17.9 Acute kidney failure, unspecified; I50.23 Acute on chronic systolic (congestive) heart failure; D50.9 Iron deficiency anemia, unspecified; I42.9 Cardiomyopathy, unspecified

== ENCOUNTER → 2019-12-22 14:56 | Outpatient (CLI) | payer MEDICARE ==
[2019-12-17 09:21] VITALS: BMI 27.3
[~2019-12-22 14:56] MED LIST changes: +ALDACTONE25 MG PO; +COREG 3.1253.125 MG PO; +ENTRESTO 24 MG1 EACH PO; +FLAGYL500 MG PO; +LISINOPRIL10 MG PO
== END | disposition home or self-care (01) ==
LOC: D.LABREF 14:56
PROVIDERS: ATTEND Internal Medicine Nephrology
DX: I50.9 Heart failure, unspecified (principal)

== ENCOUNTER 2020-01-06 11:07 | Inpatient (IN) | payer MEDICARE ==
[~2020-01-06] VITALS: Ht 175.3 cm; Wt 76.1 kg
[2020-01-06] MEDS ORDERED: GLUCOPHAGE500 MG PO (11:12)
[2020-01-06 12:09] LABS: BASOPHILS 0.5 % (0-2); EOSINOPHILS 0.7 % (0-7); HEMATOCRIT 41.7 % (42.0-54.0); HEMOGLOBIN 13.1 g/dL (13.5-17.5); IMMATURE GRANULOCYTES 0.4 % (0-5); LYMPHOCYTES 36.2 % (15-50); MCH 22.8 pg (26.0-34.0); MCHC 31.4 g/dL (31.0-37.0); MCV 72.6 fL (80.0-100.0); MONOCYTES 11.6 % (2-11); NEUTROPHILS 50.6 % (40-80); PLATELET COUNT 267 10x3/uL (130-400); RBC 5.74 10x6/uL (4.20-6.10); RDW 17.5 % (11.5-14.5); WBC 5.7 10x3/uL (4.8-10.8)
[2020-01-06 12:16] LABS: CALC OSMOLALITY 272 mosm/kg (275-300); CALCIUM 9.1 mg/dL (8.5-10.1); CARBON DIOXIDE 22.3 mmol/L (21.0-32.0); CHLORIDE - SERUM 103 mmol/L (98-107); CREATININE - SERUM 1.3 mg/dL (0.6-1.3); GLUCOSE 97 mg/dL (74-106); POTASSIUM - SERUM 4.1 mmol/L (3.5-5.1); SODIUM 137 mmol/L (136-145); UREA NITROGEN 10 mg/dL (7-18); eGFR NON AFRICAN AMERICAN 64 mL/min (90-120)
[2020-01-06 12:25] LABS: ALBUMIN 3.7 g/dL (3.4-5.0); ALKALINE PHOSPHATASE 99 U/L (30-120); ALT (SGPT) 73 U/L (10-68); BILIRUBIN - TOTAL 1.27 mg/dL (0.2-1.3); CREATINE KINASE 175 UL (21-232); PROTEIN - SERUM 8.4 g/dL (6.4-8.2)
[2020-01-06 12:26] LABS: TROPONIN-I < 0.017 ng/mL (0.000-0.060)
[2020-01-06 12:27] LABS: APTT 29.2 SECONDS (22.8-39.4); INR 1.45 (0.85-1.17); PROTIME 17.5 SECONDS (11.6-15.0)
[2020-01-06 13:00] LABS: CKMB 1.6 U/L (0.0-3.6); PRO BNP 4770 pg/mL (0-125)
[2020-01-06 15:24] VITALS: BP 132/110
[2020-01-06 16:21] VITALS: BP 132/110; BMI 26.0
--- NOTE | 2020-01-06 16:58 | NUR ---
RIGHT FA 20G IV INSERTED FOR DOBUTAMINE DRIP.
--- NOTE | 2020-01-06 17:27 | NUR ---
GAVE PT URINAL TO START COLLECTING STRICT I & O.
[2020-01-06 18:50] LABS: CKMB 1.8 U/L (0.0-3.6); CREATINE KINASE 151 UL (21-232); TROPONIN-I < 0.017 ng/mL (0.000-0.060)
[2020-01-06 20:00] VITALS: BP 100/68
[2020-01-06 20:47] LABS: CKMB 1.4 U/L (0.0-3.6); CREATINE KINASE 173 UL (21-232)
[2020-01-06 20:50] LABS: TROPONIN-I < 0.017 ng/mL (0.000-0.060)
--- NOTE | 2020-01-06 21:33 | NUR ---
EVENING ROUNDS COMPLETED. PT AA0X4, VSS, NO S/S OF RT DISTRESS. FSBS 118. NOT TREATED GA SLIDING SCALE. PT RESTING COMFORTABLY. DENIES ANY FURTHER NEEDS AT THIS TIME. WILL CPOC. CL WITHIN REACH.
[2020-01-07 01:22] VITALS: BP 118/55
[2020-01-07 03:16] LABS: BASOPHILS 0.4 % (0-2); EOSINOPHILS 0.8 % (0-7); HEMATOCRIT 36.3 % (42.0-54.0); HEMOGLOBIN 11.6 g/dL (13.5-17.5); IMMATURE GRANULOCYTES 0.2 % (0-5); LYMPHOCYTES 33.2 % (15-50); MCH 22.7 pg (26.0-34.0); MCV 71.2 fL (80.0-100.0); MEAN PLATELET VOLUME 10.7 fL (7.4-10.4); MONOCYTES 14.9 % (2-11); NEUTROPHILS 50.5 % (40-80); PLATELET COUNT 246 10x3/uL (130-400); RDW 17.3 % (11.5-14.5); WBC 4.8 10x3/uL (4.8-10.8)
[2020-01-07 03:18] LABS: ALBUMIN 2.9 g/dL (3.4-5.0); ALKALINE PHOSPHATASE 83 U/L (30-120); ALT (SGPT) 56 U/L (10-68); BILIRUBIN - TOTAL 1.11 mg/dL (0.2-1.3); CALC OSMOLALITY 277 mosm/kg (275-300); CALCIUM 8.5 mg/dL (8.5-10.1); CARBON DIOXIDE 25.2 mmol/L (21.0-32.0); CHLORIDE - SERUM 104 mmol/L (98-107); CKMB 1.4 U/L (0.0-3.6); CREATINE KINASE 134 UL (21-232); CREATININE - SERUM 1.4 mg/dL (0.6-1.3); GLUCOSE 91 mg/dL (74-106); MAGNESIUM - SERUM 1.6 mg/dL (1.8-2.4); POTASSIUM - SERUM 3.8 mmol/L (3.5-5.1); PRO BNP 3908 pg/mL (0-125); PROTEIN - SERUM 6.9 g/dL (6.4-8.2); SODIUM 139 mmol/L (136-145); TROPONIN-I < 0.017 ng/mL (0.000-0.060); UREA NITROGEN 12 mg/dL (7-18); eGFR NON AFRICAN AMERICAN 59 mL/min (90-120)
[2020-01-07 05:55] VITALS: BP 112/70
[2020-01-07 09:41] VITALS: BP 103/71
[2020-01-07 09:48] VITALS: Ht 175.3 cm; Wt 76.1 kg
--- NOTE | 2020-01-07 13:05 | NUR ---
RESTS IN BED WITHOUT NEEDS VOICED. IV PATENT WITH DOBUTREX GTT INFUSING AT 12CC/HR. RESP UL ON [address]. CALL LIGHT IN REACH. WILL CONT. PLAN OF CARE.
[2020-01-07 14:01] VITALS: BP 103/76
[2020-01-07 20:00] VITALS: BP 93/56
[2020-01-08 00:16] VITALS: BP 98/73
[2020-01-08 05:15] VITALS: BP 107/75
[2020-01-08 05:23] LABS: BASOPHILS 0.6 % (0-2); HEMATOCRIT 34.4 % (42.0-54.0); HEMOGLOBIN 10.6 g/dL (13.5-17.5); IMMATURE GRANULOCYTES 0.2 % (0-5); MCH 22.1 pg (26.0-34.0); MCHC 30.8 g/dL (31.0-37.0); MCV 71.7 fL (80.0-100.0); MONOCYTES 14.4 % (2-11); NEUTROPHILS 46.8 % (40-80); RDW 17.4 % (11.5-14.5); WBC 4.9 10x3/uL (4.8-10.8)
--- NOTE | 2020-01-08 05:32 | NUR ---
2015)blood sugar not taken entered room eating 4 icecream and sherbert sandwich tray
[2020-01-08 05:41] LABS: ALBUMIN 2.7 g/dL (3.4-5.0); ANION GAP 13.2 mmol/L (8-16); BILIRUBIN - TOTAL 0.66 mg/dL (0.2-1.3); CALCIUM 7.9 mg/dL (8.5-10.1); CARBON DIOXIDE 23.7 mmol/L (21.0-32.0); CREATININE - SERUM 1.2 mg/dL (0.6-1.3); MAGNESIUM - SERUM 1.8 mg/dL (1.8-2.4); POTASSIUM - SERUM 3.9 mmol/L (3.5-5.1); PROTEIN - SERUM 6.5 g/dL (6.4-8.2)
--- NOTE | 2020-01-08 06:23 | NUR ---
I have reviewed this patient and I concur with the Shift Assessment completed by the Licensed Practical Nurse today this shift.
[2020-01-08 06:50] LABS: PLATELET COUNT 188 10x3/uL (130-400)
--- NOTE | 2020-01-08 07:10 | NUR ---
REPORT RECEIVED FROM [employer] OPERATOR AND PATIENT CARE ASSUMED. PATIENT LAYING IN BED ON LT SIDE WITH EYES CLOSED AND BREATHING EVENLY. FAMILY ASLEEP AT BS. WILL CONTINUE WITH PLAN OF CARE. SR UP X 2 BED IN LOW POSITION AND CALL LIGHT IN REACH.
[2020-01-08 07:59] VITALS: BP 107/77
--- NOTE | 2020-01-08 10:06 | NUR ---
PATIENT IS AWAKE, ALERT AND ORIENTED X 4. PATIENT IS STABLE AND VSS. PATIENT DENIES ANY NEEDS OR PAIN. ASSESSMENT COMPLETED. WILL CONTINUE TO MONITOR. SR UP X 2 BED IN LOW POSITION AND CALL LIGHT IN REACH.
[2020-01-08 11:42] VITALS: BP 105/79
--- NOTE | 2020-01-08 13:44 | NUR ---
OT NOTE: PT COMPLETED BED MOB WITH SPV. PT COMPLETED EOB SITTING WITH SPV. PT COMPLETED FACE WASHING WITH SETUP. PT COMPLETED BUE AROM EXS . PT REQUIRED CUES FOR INCREASED PARTICIPATION. [phone] THANK YOU,UZAIR PERERA
[2020-01-08 15:38] VITALS: BP 99/68
--- NOTE | 2020-01-08 19:16 | NUR ---
PATIENT LYING IN BED. NO SIGNS OF ACUTE DISTRESS NOTED AT THIS TIME. IV IN R HAND, NO SINGS OF REDNESS OR SWELLING, DOBUTAMINE DRIP. PATIENT REQUESTS ICE CREAM. BED IN LOW POSITION, RAILS X2. BEDSIDE TABLE AND CALL LIGHT WITHIN REACH.
[2020-01-08 20:18] VITALS: BP 109/77
[2020-01-09 00:20] VITALS: BP 98/70
[2020-01-09 04:20] VITALS: BP 105/72
[2020-01-09 04:32] VITALS: BP 105/72
[2020-01-09 06:20] LABS: ALBUMIN 2.7 g/dL (3.4-5.0); ANION GAP 12.8 mmol/L (8-16); BILIRUBIN - TOTAL 0.57 mg/dL (0.2-1.3); CALCIUM 8.1 mg/dL (8.5-10.1); CARBON DIOXIDE 24.8 mmol/L (21.0-32.0); CREATININE - SERUM 1.2 mg/dL (0.6-1.3); MAGNESIUM - SERUM 1.8 mg/dL (1.8-2.4); POTASSIUM - SERUM 3.6 mmol/L (3.5-5.1); PROTEIN - SERUM 6.7 g/dL (6.4-8.2)
[2020-01-09 06:27] LABS: BASOPHILS 0.7 % (0-2); EOSINOPHILS 2.3 % (0-7); HEMATOCRIT 34.4 % (42.0-54.0); IMMATURE GRANULOCYTES 0.2 % (0-5); LYMPHOCYTES 40.6 % (15-50); MCH 22.6 pg (26.0-34.0); MCV 70.6 fL (80.0-100.0); MEAN PLATELET VOLUME 10.8 fL (7.4-10.4); MONOCYTES 13.7 % (2-11); NEUTROPHILS 42.5 % (40-80); RBC 4.87 10x6/uL (4.20-6.10); RDW 17.3 % (11.5-14.5); WBC 4.3 10x3/uL (4.8-10.8)
[2020-01-09 06:29] LABS: PLATELET COUNT 233 10x3/uL (130-400)
--- NOTE | 2020-01-09 09:17 | NUR ---
Nutrition Follow-up: Eating well. Noted pt ~75% of breakfast this AM. Diet: Cardiac Diabetic PO intake: 75-100% Wt: 174# (01/07); 176# (01/06) Labs noted: Glu 112, Ca 8.1, Alb 2.7 Meds noted: Lasix, Protonix -Continue current diet as tolerated. -Monitor wt. -RD following.
[2020-01-09 13:47] VITALS: BP 104/74
--- NOTE | 2020-01-09 14:48 | NUR ---
OT NOTE: PT COMPLETED BED MOB TASKS WITH SPV. PT COMPLETED FACE HYGIENE WITH SPV. PT DOING WELL. [phone] THANK YOU,UZAIR PERERA
--- NOTE | 2020-01-09 15:16 | MORECARE ---
CASE MANAGEMENT DISCHARGE SUMMARY PATIENT: TRAM BYERS UNIT: [id number] ADM DATE: 01/06/20 AGE: 44 : [birth year] SEX: M ROOM/BED: D.2104 AUTHOR: TAVIA GONZALEZ PHYSICIAN: REFERRING PHYSICIAN: VENESSA WHITNEY MD DATE OF SERVICE: 01/09/20 Discharge Plan Patient Name: TRAM BYERS Facility: [facility]:[place] [employer] : 1975 Planned Disposition: Home Anticipated Discharge Date: 01/10/20 Discharge Date: Expected LOS: 4 Initial Reviewer: [email or web address] Initial Review Date: 01/10/2020 Generated: 01/09/20 4:16 pm Patient Name: TRAM BYERS Page [id number] at 1516 All edits/amendments must be made on the electronic document DICTATION DATE: 01/09/20 151 FRAME MAKER: JERRY 01/09/201515 RPT#: [id number] DC DATE: STATUS: ADM IN [facility] [address] [place] [address] END OF REPORT
--- NOTE | 2020-01-09 15:25 | MORECARE ---
CASE MANAGEMENT DISCHARGE SUMMARY PATIENT: TRAM BYERS UNIT: [id number] ADM DATE: 01/06/20 AGE: 44 : [birth year] SEX: M ROOM/BED: D.2104 AUTHOR: LISA,DOC PHYSICIAN: REFERRING PHYSICIAN: VENESSA WHITNEY MD DATE OF SERVICE: 01/09/20 Discharge Plan Patient Name: TRAM BYERS Facility: [facility]:[place] : 1975 Planned Disposition: Home Anticipated Discharge Date: 01/10/20 Discharge Date: Expected LOS: 4 Initial Reviewer: [email or web address] Initial Review Date: 01/10/2020 Generated: 01/09/20 4:25 pm Comments DCP- Discharge Planning Updated by [email or web address]: Mikie Carrillo on 01/09/20 2:[address] Patient Name: TRAM BYERS Admission Status: ER Accout number: [id number] Admission Date: 01-06-2020 : 1975 Admission Diagnosis: Attending: VENESSA WHITNEY Current LOS: 3 Anticipated DC Date: 01-10-2020 Planned Disposition: Home Primary Insurance: MEDICARE A & B Discharge Planning Comments: CM MET WITH PT IN ROOM TO DISCUSS DISCHARGE PLANNING AND NEEDS. PT REPORTS LIVING AT HOME INDEPENDENTLY AND ALONE. PT HAS NO MEDICAL EQUIPMENT AND NO OUTSIDE SERVICES ASSISTING IN THE HOME. CM DISCUSSED AVAILABILITY OF HOME HEALTH, REHAB SERVICES AND MEDICAL EQUIPMENT. PT DENIES DISCHARGE NEEDS AND ASKED IF HE WILL BE GETTING A NEBULIZER FOR HOME USE. IF ORDERED, PT HAS NO PREFERENCE ON MEDICAL EQUIPMENT PROVIDER, REPORTS HIS BROTHER WILL PICK HIM UP FOR DISCHARGE HOME. IMPORTANT MESSAGE FROM MEDICARE PROVIDED AND EXPLAINED. CHOICE FOR NO MEDICAL EQUIPMENT PROVIDER PREFERENCE SIGNED. PT PLANS TO DISCHARGE HOME ALONE. IF A NEBULIZER IS ORDERED FOR HOME USE, PT DOES NOT HAVE ONE AT HOME AND HAS NO MEDICAL EQUIPMENT PROVIDER PREFERENCE. Design Teacher: Mikie Carrillo DCPIA - Discharge Planning Initial Assessment Updated by [email or web address]: Mikie Carrillo on 01/09/20 3:20 pm * Is the patient Alert and Oriented? Yes * How many steps to enter\exit or inside your home? NONE * PCP NONE * [facility] * Preadmission Environment Home Alone * ADLs Independent * Equipment None * Other Equipment NO MEDICAL EQUIPMENT PROVIDER PREFERENCE * List name and contact numbers for known caregivers / representatives who currently or will assist patient after discharge: DANA LANDEROSER, * Verbal permission to speak to the caregivers and representatives has been obtained from the patient. N/A * Community resources currently utilized None * Please name any agencies selected above. NONE * Additional services required to return to the preadmission environment? No * Can the patient safely return to the preadmission environment? Yes * Has this patient been hospitalized within the prior 30 days at any hospital? No Last DP export: 01/09/20 2:16 p Patient Name: TRAM BYERS Page 18622 at 1525 All edits/amendments must be made on the electronic document DICTATION DATE: 01/09/201524 CHILD WATCH ATTENDANT: JERRY 01/09/201524 RPT#: [id number] DC DATE: STATUS: ADM IN [facility] [address] [place] [address] END OF REPORT
[2020-01-09 17:53] VITALS: BP 111/81
--- NOTE | 2020-01-09 20:00 | NUR ---
ALERT RESTING IN BED, DENIES PAIN OR NEEDS AT THIS TIME, SEE SHIFT ASSESSMENT, CALL LIGHT IN REACH
[2020-01-09 20:13] VITALS: BP 113/77
[2020-01-10 00:12] VITALS: BP 93/58
[2020-01-10 04:43] LABS: BASOPHILS 0.6 % (0-2); EOSINOPHILS 3.5 % (0-7); HEMATOCRIT 38.6 % (42.0-54.0); HEMOGLOBIN 12.3 g/dL (13.5-17.5); IMMATURE GRANULOCYTES 0.2 % (0-5); MCH 22.6 pg (26.0-34.0); MCHC 31.9 g/dL (31.0-37.0); MEAN PLATELET VOLUME 10.5 fL (7.4-10.4); MONOCYTES 14.5 % (2-11); NEUTROPHILS 40.2 % (40-80); RBC 5.44 10x6/uL (4.20-6.10); RDW 17.5 % (11.5-14.5); WBC 5.2 10x3/uL (4.8-10.8)
[2020-01-10 04:58] LABS: PLATELET COUNT 314 10x3/uL (130-400)
[2020-01-10 05:10] LABS: ALBUMIN 2.9 g/dL (3.4-5.0); ANION GAP 12.5 mmol/L (8-16); BILIRUBIN - TOTAL 0.51 mg/dL (0.2-1.3); CALCIUM 8.4 mg/dL (8.5-10.1); CARBON DIOXIDE 25.3 mmol/L (21.0-32.0); CREATININE - SERUM 1.2 mg/dL (0.6-1.3); MAGNESIUM - SERUM 2.1 mg/dL (1.8-2.4); POTASSIUM - SERUM 3.8 mmol/L (3.5-5.1); PROTEIN - SERUM 7.2 g/dL (6.4-8.2)
[2020-01-10 09:47] VITALS: BP 103/70
--- NOTE | 2020-01-10 12:22 | NUR ---
AFTER ENTRESTO AND COREG THIS MORNING BP NOW AT 107/78. LASIX AND DIG GIVEN NOW.
[2020-01-10 12:59] VITALS: BP 109/78
[2020-01-10] MEDS ORDERED: LANOXIN125 MCG PO (13:15)
--- NOTE | 2020-01-12 16:01 | MORECARE ---
CASE MANAGEMENT DISCHARGE SUMMARY PATIENT: TRAM BYERS UNIT: [id number] ADM DATE: 01/06/20 AGE: 44 : 77 SEX: M ROOM/BED: D.2107 AUTHOR: LISA,DOC PHYSICIAN: REFERRING PHYSICIAN: VENESSA WHITNEY MD DATE OF SERVICE: 01/12/20 Discharge Plan Patient Name: TRAM BYERS Facility: [facility]:[place] : 1975 Planned Disposition: Home Anticipated Discharge Date: 01/10/20 Discharge Date: 01/10/2020 Expected LOS: 4 Initial Reviewer: [email or web address] Initial Review Date: 01/10/2020 Generated: 01/12/20 5:01 pm DCP- Discharge Planning Updated by [email or web address]: Mikie Carrillo on 01/09/20 2:[address] Patient Name: TRAM BYERS Admission Status: ER Accout number: [id number] Admission Date: 01-06-2020 : 1975 Admission Diagnosis: Attending: VENESSA WHITNEY Current LOS: 3 Anticipated DC Date: 01-10-2020 Planned Disposition: Home Primary Insurance: MEDICARE A & B Discharge Planning Comments: CM MET WITH PT IN ROOM TO DISCUSS DISCHARGE PLANNING AND NEEDS. PT REPORTS LIVING AT HOME INDEPENDENTLY AND ALONE. PT HAS NO MEDICAL EQUIPMENT AND NO OUTSIDE SERVICES ASSISTING IN THE HOME. CM DISCUSSED AVAILABILITY OF HOME HEALTH, REHAB SERVICES AND MEDICAL EQUIPMENT. PT DENIES DISCHARGE NEEDS AND ASKED IF HE WILL BE GETTING A NEBULIZER FOR HOME USE. IF ORDERED, PT HAS NO PREFERENCE ON MEDICAL EQUIPMENT PROVIDER, REPORTS HIS BROTHER WILL PICK HIM UP FOR DISCHARGE HOME. IMPORTANT MESSAGE FROM MEDICARE PROVIDED AND EXPLAINED. CHOICE FOR NO MEDICAL EQUIPMENT PROVIDER PREFERENCE SIGNED. PT PLANS TO DISCHARGE HOME ALONE. IF A NEBULIZER IS ORDERED FOR HOME USE, PT DOES NOT HAVE ONE AT HOME AND HAS NO MEDICAL EQUIPMENT PROVIDER PREFERENCE. Laminating Machine Tender: Mikie Carrillo DCPIA - Discharge Planning Initial Assessment Updated by [email or web address]: Mikie Carrillo on 01/09/20 3:20 pm * Is the patient Alert and Oriented? Yes * How many steps to enter\exit or inside your home? NONE * PCP NONE * Pharmacy [facility] * Preadmission Environment Home Alone * ADLs Independent * Equipment None * Other Equipment NO MEDICAL EQUIPMENT PROVIDER PREFERENCE * List name and contact numbers for known caregivers / representatives who currently or will assist patient after discharge: DANA LANDEROSER, * Verbal permission to speak to the caregivers and representatives has been obtained from the patient. N/A * Community resources currently utilized None * Please name any agencies selected above. NONE * Additional services required to return to the preadmission environment? No * Can the patient safely return to the preadmission environment? Yes * Has this patient been hospitalized within the prior 30 days at any hospital? No Coverage Notice Reviewer: [email or web address] Carrillo Notice Issued Date-Time: 01/09/2020 14:24 Notice Type: IM Discharge Notice Notice Delivered To: Patient Relationship to Patient: Hand Glove Cleaner Name: Delivery Method: HAND - Hand Delivered Geetha Days: Prior Verbal Notification: Recipient Understood Notice: Yes Recipient Signature: Yes Med Rec Note Co-signed by Attending: Coverage Notice Comment: Reviewer: MYRTLE Carrillo Notice Issued Date-Time: 01/09/2020 14:25 Notice Type: IM Discharge Notice Notice Delivered To: Patient Relationship to Patient: Hand Glove Cleaner Name: Delivery Method: HAND - Hand Delivered Geetha Days: Prior Verbal Notification: Recipient Understood Notice: Yes Recipient Signature: Yes Med Rec Note Co-signed by Attending: Coverage Notice Comment: Last DP export: 01/09/20 2:25 p Patient Name: TRAM BYERS Page 95490 at 1601 All edits/amendments must be made on the electronic document DICTATION DATE: 01/12/20 1601 FACSIMILE OPERATOR: JERRY 01/12/20 1601 RPT#: [id number] DC DATE:01/10/20 STATUS: DIS IN [facility] [address] [place] [address] END OF REPORT
== END 2020-01-10 20:55 | disposition home or self-care (01) | DRG 291 ==
LOC: D.ER 11:07 → D.M2 13:57
PROVIDERS: Emergency Medicine; Family Medicine; ADMIT Family Medicine; ATTEND Family Medicine
DX: I11.0 Hypertensive heart disease with heart failure (principal); J96.01 Acute respiratory failure with hypoxia; F17.213 Nicotine dependence, cigarettes, with withdrawal; J44.1 Chronic obstructive pulmonary disease with (acute) exacerbation; I50.23 Acute on chronic systolic (congestive) heart failure; D50.9 Iron deficiency anemia, unspecified; E11.9 Type 2 diabetes mellitus without complications; I27.20 Pulmonary hypertension, unspecified; I08.1 Rheumatic disorders of both mitral and tricuspid valves; F31.9 Bipolar disorder, unspecified

== ENCOUNTER 2020-02-01 22:17 | Inpatient (IN) | payer MEDICARE ==
[~2020-02-01] VITALS: Ht 175.3 cm; Wt 79.8 kg
[~2020-02-01 22:17] MED LIST changes: +GLUCOPHAGE500 MG PO; +LANOXIN125 MCG PO
[2020-02-01 22:47] LABS: BASOPHILS 0.4 % (0-2); EOSINOPHILS 0.9 % (0-7); HEMATOCRIT 35.8 % (42.0-54.0); HEMOGLOBIN 11.2 g/dL (13.5-17.5); IMMATURE GRANULOCYTES 0.2 % (0-5); LYMPHOCYTES 33.2 % (15-50); MCH 21.9 pg (26.0-34.0); MCHC 31.3 g/dL (31.0-37.0); MCV 70.1 fL (80.0-100.0); MEAN PLATELET VOLUME 9.9 fL (7.4-10.4); MONOCYTES 15.2 % (2-11); NEUTROPHILS 50.1 % (40-80); PLATELET COUNT 342 10x3/uL (130-400); RBC 5.11 10x6/uL (4.20-6.10); RDW 19.8 % (11.5-14.5); WBC 5.5 10x3/uL (4.8-10.8)
[2020-02-01 22:58] LABS: CALC OSMOLALITY 271 mosm/kg (275-300); CALCIUM 7.9 mg/dL (8.5-10.1); CARBON DIOXIDE 23.7 mmol/L (21.0-32.0); CHLORIDE - SERUM 101 mmol/L (98-107); CREATININE - SERUM 1.1 mg/dL (0.6-1.3); GLUCOSE 137 mg/dL (74-106); SODIUM 136 mmol/L (136-145); UREA NITROGEN 8 mg/dL (7-18); eGFR NON AFRICAN AMERICAN 78 mL/min (90-120)
[2020-02-01 23:11] LABS: ALBUMIN 2.7 g/dL (3.4-5.0); ALKALINE PHOSPHATASE 90 U/L (30-120); ALT (SGPT) 24 U/L (10-68); BILIRUBIN - TOTAL 1.09 mg/dL (0.2-1.3); DIGOXIN 0.07 ng/mL (0.90-2.00); PRO BNP 7337 pg/mL (0-125); PROTEIN - SERUM 6.9 g/dL (6.4-8.2)
[2020-02-02 00:37] VITALS: BP 118/83
--- NOTE | 2020-02-02 01:05 | NUR ---
PT ARRIVED TO ROOM VIA BED.
[2020-02-02 02:09] VITALS: BP 109/79
[2020-02-02 14:00] VITALS: BP 111/88
--- NOTE | 2020-02-02 19:10 | NUR ---
BEDSIDE REPORT RECEIVED, PT CARE ASSUMED. INTRODUCED SELF AND WROTE NAME ON BOARD. PT SITTING UP IN BED, WATCHING TV, AAOX4. DENIES ANY NEEDS AT THIS TIME. BED IN LOWEST POSITION, SR X2, CALL LIGHT WITHIN REACH. WILL CONTINUE TO MONITOR.
[2020-02-02 20:00] VITALS: BP 108/67
[2020-02-03] VITALS: BP 100/71
[2020-02-03 04:00] VITALS: BP 102/76
--- NOTE | 2020-02-03 04:46 | NUR ---
PT REFUSING TELEMETRY, STATES "I DIDN'T THINK IT WAS WORKING." EXPLAINED TO PT THAT HIS TELEMETRY WAS INDEED WORKING AND THAT HIS RHYTHM WAS SHOWING UP ON THE TELEMTRY MONITORS. STATES "I DON'T WANT IT." REQUESTING TO BE CONNECTED TO IV FLUIDS, EXPLAINED TO PT THAT HE DOESN'T HAVE ANY ORDERS FOR CONTINUOUS IV FLUIDS, PT VERBALIZED UNDERSTANDING. DENIES ANY OTHER NEEDS AT THIS TIME. BED IN LOWEST POSITION, SR X1, CALL LIGHT WITHIN REACH. WILL CONTINUE TO MONITOR.
[2020-02-03 09:08] LABS: BASOPHILS 0.2 % (0-2); EOSINOPHILS 0.4 % (0-7); HEMATOCRIT 36.3 % (42.0-54.0); IMMATURE GRANULOCYTES 0.5 % (0-5); LYMPHOCYTES 27.8 % (15-50); MCH 21.5 pg (26.0-34.0); MCHC 30.3 g/dL (31.0-37.0); MCV 70.9 fL (80.0-100.0); MEAN PLATELET VOLUME 9.5 fL (7.4-10.4); MONOCYTES 14.5 % (2-11); NEUTROPHILS 56.6 % (40-80); RBC 5.12 10x6/uL (4.20-6.10); RDW 19.3 % (11.5-14.5); WBC 5.5 10x3/uL (4.8-10.8)
[2020-02-03 09:13] LABS: ANION GAP 12.9 mmol/L (8-16); CARBON DIOXIDE 23.2 mmol/L (21.0-32.0); CREATININE - SERUM 1.4 mg/dL (0.6-1.3); POTASSIUM - SERUM 4.1 mmol/L (3.5-5.1)
[2020-02-03 09:26] LABS: PLATELET COUNT 261 10x3/uL (130-400)
[2020-02-03 09:35] VITALS: BP 92/54
[2020-02-03 11:34] VITALS: Ht 175.3 cm; Wt 79.8 kg
[2020-02-03 12:32] LABS: UDS - AMPHET NEGATIVE QUAL (NEGATIVE); UDS - BARB NEGATIVE QUAL (NEGATIVE); UDS - BENZO NEGATIVE QUAL (NEGATIVE); UDS - COCAINE NEGATIVE QUAL (NEGATIVE); UDS - OPIATE POSITIVE QUAL (NEGATIVE); UDS - PCP NEGATIVE QUAL (NEGATIVE); UDS - THC NEGATIVE QUAL (NEGATIVE)
[2020-02-03 13:11] LABS: BILIRUBIN NEGATIVE (NEGATIVE); GLUCOSE NEGATIVE (NEGATIVE); KETONE NEGATIVE (NEGATIVE); NITRITE NEGATIVE (NEGATIVE); SPECIFIC GRAVITY 1.015 (1.005-1.020)
[2020-02-03 14:23] VITALS: BP 96/62
[2020-02-03 18:45] VITALS: BP 106/75
[2020-02-03 20:00] VITALS: BP 120/80
[2020-02-04] VITALS: BP 114/70
[2020-02-04 04:00] VITALS: BP 107/76
[2020-02-04 05:53] LABS: ANION GAP 15.2 mmol/L (8-16); CALCIUM 8.3 mg/dL (8.5-10.1); CARBON DIOXIDE 23.9 mmol/L (21.0-32.0); CREATININE - SERUM 1.5 mg/dL (0.6-1.3); MAGNESIUM - SERUM 1.7 mg/dL (1.8-2.4); POTASSIUM - SERUM 4.1 mmol/L (3.5-5.1)
[2020-02-04 06:46] LABS: HEMOGLOBIN 10.8 g/dL (13.5-17.5); MCH 21.6 pg (26.0-34.0); MCHC 30.9 g/dL (31.0-37.0); MCV 69.9 fL (80.0-100.0); MEAN PLATELET VOLUME 10.2 fL (7.4-10.4); PLATELET COUNT 253 10x3/uL (130-400); RBC 5.01 10x6/uL (4.20-6.10); RDW 19.3 % (11.5-14.5); WBC 5.3 10x3/uL (4.8-10.8)
[2020-02-04 08:00] VITALS: BP 101/73
[2020-02-04 11:05] LABS: LYMPHOCYTES 41 % (15-50); MONOCYTES 11 % (2-11); NEUTROPHILS 48 % (40-80); PLATELET ESTIMATE NORMAL
[2020-02-04 13:25] VITALS: BP 114/81
--- NOTE | 2020-02-04 16:34 | NUR ---
I have reviewed this patient and I concur with the Shift Assessment completed by the Licensed Practical Nurse today this shift.
--- NOTE | 2020-02-04 19:40 | NUR ---
REPORT RECEIVED, WILL CONTINUE POC. PATIENT IS AAOX4, LYING IN SEMI-FOWLERS POSITION. NO S/S OF DISTRESS OBSERVED, RR EVEN AND UNLABORED ON ROOM AIR. PIV TO LT FA, SL. PATIENT DENIES NEEDS AT THIS TIME. CL IN REACH, BED LOCKED AND LOWERED. DROPLET PRECAUTIONS MAINTAINED. WILL CTM.
[2020-02-04 21:12] VITALS: BP 101/78
[2020-02-05] VITALS: BP 120/80
[2020-02-05 05:17] VITALS: BP 92/67
[2020-02-05 06:25] LABS: BASOPHILS 0.2 % (0-2); EOSINOPHILS 0.9 % (0-7); HEMATOCRIT 34.4 % (42.0-54.0); HEMOGLOBIN 10.6 g/dL (13.5-17.5); IMMATURE GRANULOCYTES 0.4 % (0-5); LYMPHOCYTES 24.8 % (15-50); MCH 21.5 pg (26.0-34.0); MCHC 30.8 g/dL (31.0-37.0); MCV 69.6 fL (80.0-100.0); MEAN PLATELET VOLUME 9.5 fL (7.4-10.4); NEUTROPHILS 53.7 % (40-80); PLATELET COUNT 260 10x3/uL (130-400); RBC 4.94 10x6/uL (4.20-6.10); RDW 19.3 % (11.5-14.5); WBC 4.6 10x3/uL (4.8-10.8)
[2020-02-05 06:58] LABS: ANION GAP 11.5 mmol/L (8-16); C-REACTIVE PROTEIN 5.8 mg/dL (0.0-0.9); CALCIUM 8.1 mg/dL (8.5-10.1); CARBON DIOXIDE 24.4 mmol/L (21.0-32.0); CREATININE - SERUM 1.2 mg/dL (0.6-1.3); MAGNESIUM - SERUM 1.6 mg/dL (1.8-2.4); POTASSIUM - SERUM 3.9 mmol/L (3.5-5.1)
[2020-02-05 08:03] VITALS: BP 96/65
--- NOTE | 2020-02-05 09:08 | EC ---
PATIENT:TRAM BYERS DATE OF SERVICE: 02/01/20 SEX: M MEDICAL RECORD: [id number] DATE OF : [birth year] LOCATION:D.M2 D.210 AGE OF PATIENT: 44 ADMISSION DATE: 02/01/20 REFERRING PHYSICIAN: INTERPRETING PHYSICIAN: NANETTE CRYSTAL MD ECHOCARDIOGRAM REPORT ECHO CHARGES 4 ECHO COMPLETE Date: 02/03/20 CLINICAL DIAGNOSIS: DYSPNEA ECHOCARDIOGRAPHIC MEASUREMENTS (adult normal given) AC root (d.<3.7cm) 2.4 cm LV Septum d (<1.2 cm> 1.5 cm Valve Excursion 1.0 cm LV Septum (systole) 1.6 cm Left Atria (s.<4.0cm> 4.9 cm LVPW d(<1.2cm) 1.3 cm RV (d.<2.3cm) 5.0 cm LVPW (sytole) 1.5 cm LV diastole(<5.6CM) 6.5 cm MV E-F(>70mm/sec) cm LV systole 5.1 cm LVOT Diameter 2.0 cm MV exc.(>10mm) 1.0 cm Est.ejection fraction (50-75%) % DOPPLER: LVIT cm/sec A 47.0 cm/sec E 96.0 cm/sec LA cm/sec RVSP 44 mmHg LVOT 87 cm/sec AOP1/2T m/s Asc. Ao 174 cm/sec RVOT 39 cm/sec RA cm/sec PA 60 cm/sec AV Gradient Peak 12.13mmHg AV Mean 7.29 mmHg AV Area 1.5 cm MV Gradient Peak 5.85 mmHg MV Mean 2.01 mmHg MV Area cm COMMENTS: Development Trainer: 2 ELIUD BRADLEY Spray Painting Machine Operator: 3 Dr. Crowder TAPE# PACS Pericardial Effusion N DATE OF SERVICE: Adequate 2D, color flow imaging, spectral Doppler, and M-Mode. LVH is present. LV internal dimensions is dilated. LV is globally hypokinetic with reduced EF, estimated EF 30% to 35%. Aortic valve is tricuspid. No evidence of stenosis by Doppler interrogation. Left atrium is dilated at 4.9 cm. Mitral valve is thickened. Moderate to severe MR. Right-sided chambers appeared dilated as well. Moderate to severe TR. ECHOCARDIOGRAM REPORT [id number] TRAM BYERS TRANSINT:[id number] Voice Confirmation ID: [id number] DOCUMENT ID: [id number] NANETTE CRYSTAL MD at 0908 CC: [id number] DICTATION DATE: 02/04/20 1239 NEW BUSINESS CLERK: 02/04/20 1301 ADM IN [facility] [address] [place] [address]
--- NOTE | 2020-02-05 10:14 | NUR ---
Nutrition Follow-up: Overall eating well. Diet: Cardiac PO intake: 81% avg x last 4 meals No new wt; last wt: 176# (02/02) Labs noted: Na 131, Glu 128, Ca 8.1, Mg 1.6 Meds noted: MagOx, Protonix, Lasix -Encourage PO intake and honor food preferences within diet restrictions. -Offer nutritional supplements. -Monitor wt. -RD following.
[2020-02-05 16:58] VITALS: BP 105/61
--- NOTE | 2020-02-05 18:26 | NUR ---
PT HAS TRIED COMING OUT OF HIS ROOM SEVERAL TIMES DESPITE TEACHING PROVIDED ABOUT STRICT ISOLATION RULES. PAGED X RAY PHYSICIAN PHYSICIAN X2 NOW. PAGED TIMBER BUCKER. HOUSE AND UNIT MANAGE TALKED TO PT AND HE VERBALIZED UNDERSTANDING. PT AGAIN CAME OUT REQUESTING TO GO TO ER ROOM TO HAVE SOMEONE LOOK AT HIS RIBS. NO IMMEDIATE ABNORMALITIES NOTED BUT PT STATES IT HURTS WHICH IS EXPECTED WITH HIS DIAGNOSIS AND RESPIRATORY ISSUES WITH COUGHING. EXPLAINED TO PT WE ARE WAITING ON PHYSICIAN TO CALL BACK AND HE SAID OKAY BUT THEN WAS CAUGHT AMBULATING TO ER WHEN HIS NURSE WAS BUSY WITH ANOTHER PT. PT WILL NOT WEAR A MASK AND IS FULLY CLOTHED AND STATES "IM LEAVING" HOWEVER PT REFUSED TO SIGN AMA FORM. PT WAS ASKED BY ELECTRICAL FITTER MEJIA TO STAY IN ROOM AND THAT ER CAN NOT SEE HIM IF HES ALREADY ADMITTED INPATIENT. PAGED X RAY PHYSICIAN PHYSICIAN ONCE AGAIN AND WILL HAVE TO CALL SECURITY IF PT WILL NOT COOPERATE. PT IS COUGHING AND DOESNT COVER HIS MOUTH AND STATES HE DOESNT CARE BECAUSE HE WANTS HIS RIBS "LOOKED AT" NURSE ASSESSED PT AND HE STILL IS BEING COMPLICATED EVEN AFTER COUGH MEDICATION PROVIDED FOR RELIEF. WILL CTM AND TRY TO DEESCALATE THE SITUATION.
[2020-02-05 19:41] VITALS: BP 99/70
--- NOTE | 2020-02-05 22:34 | NUR ---
PT LYING IN BED AWAKE ALERT AND ORIENTED x4. PT C/O PRESISTANT COUGH AND PAIN TO LEFT BACK AREA PRN COUGH MEDICATION ORDERED. PT ENCOUARGED TO CALL FOR HELP WHEN NEEDED. CALL LIGHT WITH IN REACH. WILL CONTINUE TO MONITOR
[2020-02-05 23:49] VITALS: BP 119/95
--- NOTE | 2020-02-05 23:54 | NUR ---
PRN PAIN MEDICATION AND PRN COUGH MEDICATION GIVEN CALL LIGHT WITH IN REACH. WILL CONTINUE TO MONITOR
[2020-02-06 05:02] VITALS: BP 108/79
[2020-02-06 06:00] LABS: ANION GAP 11.2 mmol/L (8-16); C-REACTIVE PROTEIN 5.8 mg/dL (0.0-0.9); CALCIUM 8.3 mg/dL (8.5-10.1); CARBON DIOXIDE 26.9 mmol/L (21.0-32.0); CREATININE - SERUM 1.5 mg/dL (0.6-1.3); MAGNESIUM - SERUM 1.7 mg/dL (1.8-2.4); POTASSIUM - SERUM 4.1 mmol/L (3.5-5.1)
--- NOTE | 2020-02-06 06:06 | NUR ---
I have reviewed this patient and I concur with the Shift Assessment completed by the Licensed Practical Nurse today this shift.
[2020-02-06 06:10] LABS: BASOPHILS 0.2 % (0-2); EOSINOPHILS 0.4 % (0-7); HEMATOCRIT 35.2 % (42.0-54.0); HEMOGLOBIN 10.9 g/dL (13.5-17.5); IMMATURE GRANULOCYTES 0.6 % (0-5); LYMPHOCYTES 24.7 % (15-50); MCH 21.5 pg (26.0-34.0); MCV 69.6 fL (80.0-100.0); MEAN PLATELET VOLUME 9.8 fL (7.4-10.4); MONOCYTES 17.2 % (2-11); NEUTROPHILS 56.9 % (40-80); PLATELET COUNT 238 10x3/uL (130-400); RBC 5.06 10x6/uL (4.20-6.10); RDW 19.4 % (11.5-14.5); WBC 5.2 10x3/uL (4.8-10.8)
[2020-02-06 08:16] VITALS: BP 108/79
[2020-02-06 10:55] VITALS: BP 100/71
--- NOTE | 2020-02-06 12:58 | NUR ---
I have reviewed this patient and I concur with the Shift Assessment completed by the Licensed Practical Nurse today this shift.
[2020-02-06 20:47] VITALS: BP 99/77
--- NOTE | 2020-02-06 20:48 | NUR ---
PT LYING IN BED AWAKE ALERT AND ORIENTD x4. NO SIGNS OF DISTRESS NOTED. RESPIRATIONS EVEN AND UNLABORED. CALL LIGHT WITH IN REACH. NO COMPLAINTS AT THIS TIME WILL CONTINUE TO MONITOR.
--- NOTE | 2020-02-06 23:45 | NUR ---
PT UP TO RESTROOM. C/O PAIN TO BACK. PRN PAIN MEDICATION GIVEN. NO OTHER COMPLAINTS AT THIS TIME. CALL LIGHT WITH IN REACH. WILL CONTINUE TO MONITOR.
[2020-02-07 05:29] VITALS: BP 104/69
[2020-02-07 06:31] LABS: CALCIUM 7.9 mg/dL (8.5-10.1); CREATININE - SERUM 1.2 mg/dL (0.6-1.3); MAGNESIUM - SERUM 1.9 mg/dL (1.8-2.4)
[2020-02-07 06:49] LABS: BASOPHILS 0.4 % (0-2); EOSINOPHILS 0.6 % (0-7); HEMATOCRIT 35.3 % (42.0-54.0); HEMOGLOBIN 10.8 g/dL (13.5-17.5); IMMATURE GRANULOCYTES 0.2 % (0-5); LYMPHOCYTES 35.1 % (15-50); MCH 21.2 pg (26.0-34.0); MCHC 30.6 g/dL (31.0-37.0); MCV 69.2 fL (80.0-100.0); MEAN PLATELET VOLUME 9.7 fL (7.4-10.4); MONOCYTES 18.9 % (2-11); NEUTROPHILS 44.8 % (40-80); PLATELET COUNT 262 10x3/uL (130-400); RDW 19.4 % (11.5-14.5); WBC 5.4 10x3/uL (4.8-10.8)
[2020-02-07 08:24] VITALS: BP 128/81
--- NOTE | 2020-02-07 16:46 | MORECARE ---
CASE MANAGEMENT DISCHARGE SUMMARY PATIENT: TRAM BYERS UNIT: [id number] ADM DATE: 02/01/20 AGE: 44 : 77 SEX: M ROOM/BED: D.2133 AUTHOR: TAVIA GONZALEZ PHYSICIAN: REFERRING PHYSICIAN: INEZ LAWSON MD DATE OF SERVICE: 02/07/20 Discharge Plan Patient Name: TRAM BYERS Facility: [facility]:[place] : 1975 Planned Disposition: Home Anticipated Discharge Date: Discharge Date: Expected LOS: Initial Reviewer: [email or web address] Initial Review Date: 02/07/2020 Generated: 02/07/20 5:46 pm Patient Name: TRAM BYERS Page [phone] at 1646 All edits/amendments must be made on the electronic document DICTATION DATE: 02/07/201645 VENDING MACHINE FILLER: JERRY 02/07/201645 RPT#: [id number] DC DATE: STATUS: ADM IN [facility] [address] [place] [address] END OF REPORT
--- NOTE | 2020-02-07 16:53 | MORECARE ---
CASE MANAGEMENT DISCHARGE SUMMARY PATIENT: TRAM BYERS UNIT: [id number] ADM DATE: 02/01/20 AGE: 44 : 77 SEX: M ROOM/BED: D.2133 AUTHOR: LISA,DOC PHYSICIAN: REFERRING PHYSICIAN: INEZ LAWSON MD DATE OF SERVICE: 02/07/20 Discharge Plan Patient Name: TRAM BYERS Facility: [facility]:[place] : 1975 Planned Disposition: Home Anticipated Discharge Date: Discharge Date: Expected LOS: Initial Reviewer: [email or web address] Initial Review Date: 02/07/2020 Generated: 02/07/20 5:52 pm Comments DCP- Discharge Planning Updated by [email or web address]: Nicole Richard on 02/07/20 3:[address] Patient Name: TRAM BYERS Admission Status: ER Accout number: [id number] Admission Date: 02-01-2020 : 1975 Admission Diagnosis:SHORTNESS OF BREATH Attending: INEZ LAWSON Current LOS: 6 Anticipated DC Date: Planned Disposition: Home Primary Insurance: MEDICARE A & B Discharge Plan - home alone. Discharge Planning Comments: CM met with patient to complete initial dc planning assessment. CM educated patient on the CM role and verbal consent given by patient to complete assessment. Patient lives at home alone. At discharge patient plans to return and feels this is a safe discharge. CM discussed availability of home health, rehab services, and medical equipment. Patient denied known discharge needs at this time. CM will continue to follow and will assist as needed with dc plans/needs. Loss Prevention Supervisor: Nicole Richard DCPIA - Discharge Planning Initial Assessment Updated by [email or web address]: Nicole Richard on 02/07/20 4:46 pm * Is the patient Alert and Oriented? Yes * How many steps to enter\exit or inside your home? 0/0 * PCP None * Pharmacy [facility] [address] * Preadmission Environment Home Alone * ADLs Independent * Equipment None * List name and contact numbers for known caregivers / representatives who currently or will assist patient after discharge: Jorge Ruelas [facility]- [phone] * Verbal permission to speak to the caregivers and representatives has been obtained from the patient. Yes * Community resources currently utilized None * Additional services required to return to the preadmission environment? No * Can the patient safely return to the preadmission environment? Yes * Has this patient been hospitalized within the prior 30 days at any hospital? Yes Last DP export: 02/07/20 3:46 p Patient Name: TRAM BYERS Page [phone] at 1653 All edits/amendments must be made on the electronic document DICTATION DATE: 02/07/201651 MACHINE WOOD SANDER: JERRY 02/07/201651 RPT#: [id number] DC DATE: STATUS: ADM IN [facility] [address] [place] [address] END OF REPORT
--- NOTE | 2020-02-07 18:35 | NUR ---
I CONCUR WITH METAL GRADER ASSESMENT OF THIS PATIENT.
[2020-02-07 20:32] VITALS: BP 102/72
--- NOTE | 2020-02-07 20:43 | NUR ---
RECEIVED UP IN BED WITH EYES OPEN AND TV ON. ALERT ANAD ORIETNED X4. UP AD ADAN. NOT WEARING O2 AT THIS TIME. SATS 97-98%. IV TO LT WRIST SL. DENIES ANY NEEDS. REMAINS IN ISOLATION.
[2020-02-08 05:41] VITALS: BP 102/70
[2020-02-08 06:09] LABS: BASOPHILS 0.4 % (0-2); EOSINOPHILS 0.8 % (0-7); HEMATOCRIT 34.6 % (42.0-54.0); HEMOGLOBIN 10.7 g/dL (13.5-17.5); IMMATURE GRANULOCYTES 0.4 % (0-5); LYMPHOCYTES 33.8 % (15-50); MCH 21.2 pg (26.0-34.0); MCHC 30.9 g/dL (31.0-37.0); MCV 68.7 fL (80.0-100.0); MEAN PLATELET VOLUME 9.7 fL (7.4-10.4); MONOCYTES 20.5 % (2-11); NEUTROPHILS 44.1 % (40-80); PLATELET COUNT 256 10x3/uL (130-400); RBC 5.04 10x6/uL (4.20-6.10); RDW 19.6 % (11.5-14.5); WBC 4.9 10x3/uL (4.8-10.8)
[2020-02-08 06:14] LABS: ANION GAP 12.8 mmol/L (8-16); CALCIUM 8.1 mg/dL (8.5-10.1); CREATININE - SERUM 1.2 mg/dL (0.6-1.3); POTASSIUM - SERUM 3.8 mmol/L (3.5-5.1)
--- NOTE | 2020-02-08 08:00 | NUR ---
PT LAYING SUPINE. RR EVEN AND UNLABORED ON RA. SAW PT PULL OUT IV AND STATED IT WAS ALREADY OUT. CATHETER TIP INTACT. DROPLET PRECAUTIONS IN PLACE. ASSESSMENT COMPLETE. CALL LIGHT WITHIN REACH. BED IN LOWEST POSITION. WILL COTNINUE TO MONITOR.
[2020-02-08 09:50] VITALS: BP 112/70
[2020-02-08] MEDS ORDERED: TESSALON PERLE100 MG PO (12:12)
[2020-02-08] MEDS ORDERED: COREG 3.1253.125 MG PO (12:12)
[2020-02-08] MEDS ORDERED: ROBITUSSIN AC (WITH PO (12:12)
[2020-02-08] MEDS ORDERED: ALDACTONE25 MG PO (12:12)
[2020-02-08] MEDS ORDERED: LEVAQUIN750 MG PO (12:13)
--- NOTE | 2020-02-08 14:12 | MORECARE ---
CASE MANAGEMENT DISCHARGE SUMMARY PATIENT: TRAM ALEJANDRO UNIT: [id number] ADM DATE: 02/01/20 AGE: 44 : 77 SEX: M ROOM/BED: D.2133 AUTHOR: LISA,DOC PHYSICIAN: REFERRING PHYSICIAN: INEZ LAWSON MD DATE OF SERVICE: 02/08/20 Discharge Plan Patient Name: TRAM ALEJANDRO Facility: [facility]:[place] : 1975 Planned Disposition: Home Anticipated Discharge Date: 02/08/20 Discharge Date: Expected LOS: 7 Initial Reviewer: [email or web address] Initial Review Date: 02/07/2020 Generated: 02/08/20 3:11 pm Comments DCP- Discharge Planning Updated by [email or web address]: Lucie Bruno on 02/08/20 1:[address] Patient's transportation is on the way. She denies any needs. DC IMM signed. DCP- Discharge Planning Updated by [email or web address]: Nicole Richard on 02/07/20 3:[address] Patient Name: TRAM ALEJANDRO Admission Status: ER Accout number: [id number] Admission Date: 02-01-2020 : 1975 Admission Diagnosis:SHORTNESS OF BREATH Attending: INEZ LAWSON Current LOS: 6 Anticipated DC Date: Planned Disposition: Home Primary Insurance: MEDICARE A & B Discharge Plan - home alone. Discharge Planning Comments: CM met with patient to complete initial dc planning assessment. CM educated patient on the CM role and verbal consent given by patient to complete assessment. Patient lives at home alone. At discharge patient plans to return and feels this is a safe discharge. CM discussed availability of home health, rehab services, and medical equipment. Patient denied known discharge needs at this time. CM will continue to follow and will assist as needed with dc plans/needs. Molder Feeder: Nicole Richard DCPIA - Discharge Planning Initial Assessment Updated by [email or web address]: Nicole Richard on 02/07/20 4:46 pm * Is the patient Alert and Oriented? Yes * How many steps to enter\exit or inside your home? 0/0 * PCP None * Pharmacy [facility] [address] [facility] * Preadmission Environment Home Alone * ADLs Independent * Equipment None * List name and contact numbers for known caregivers / representatives who currently or will assist patient after discharge: Jorge davila- [phone] * Verbal permission to speak to the caregivers and representatives has been obtained from the patient. Yes * Community resources currently utilized None * Additional services required to return to the preadmission environment? No * Can the patient safely return to the preadmission environment? Yes * Has this patient been hospitalized within the prior 30 days at any hospital? Yes Coverage Notice Reviewer: [email or web address] Caleb Bruno Notice Issued Date-Time: 02/08/2020 14:06 Notice Type: IM Discharge Notice Notice Delivered To: Patient Relationship to Patient: Self Advertising Executive Name: Tram Alejandro Delivery Method: HAND - Hand Delivered Geetha Days: Prior Verbal Notification: Recipient Understood Notice: Yes Recipient Signature: Yes Med Rec Note Co-signed by Attending: Coverage Notice Comment: DC IMM signed by patient, placed on chart. Patient declined her copy. Last DP export: 02/07/20 3:53 p Patient Name: TRAM ALEJANDRO Page [phone] at 1412 All edits/amendments must be made on the electronic document DICTATION DATE: 02/08/20 1412 TOWER TECHNICIAN: JERRY 02/08/20 141 RPT#: [id number] DC DATE: STATUS: ADM IN [facility] [address] [place] [address] END OF REPORT
--- NOTE | 2020-02-08 19:47 | NUR ---
LEFT FACILITY AT 1915 IN [place] TO HOME. ALERT AND ORIENTED X4. PLEASANT AND TALKATIVE. IV D/C'D AND TOOK ALL PERSONAL BELONGINGS.
== END 2020-02-08 19:15 | disposition home or self-care (01) | DRG 193 ==
LOC: D.ER 22:17 → D.M2 23:32
PROVIDERS: Emergency Medicine; Family Medicine; ADMIT Internal Medicine Nephrology; ATTEND Internal Medicine Nephrology
DX: J10.00 Influenza due to other identified influenza virus with unspecified type of pneumonia (principal); I50.23 Acute on chronic systolic (congestive) heart failure; N17.9 Acute kidney failure, unspecified; F17.203 Nicotine dependence unspecified, with withdrawal; I11.0 Hypertensive heart disease with heart failure; J02.0 Streptococcal pharyngitis; D50.9 Iron deficiency anemia, unspecified; E83.42 Hypomagnesemia; Z91.14 Patient's other noncompliance with medication regimen

== ENCOUNTER 2020-02-12 18:58 | Emergency (ER) | payer MEDICARE ==
[~2020-02-12] VITALS: Ht 175.3 cm; Wt 79.5 kg
[~2020-02-12 18:58] MED LIST changes: +LEVAQUIN750 MG PO; +ROBITUSSIN AC (WITH PO; +TESSALON PERLE100 MG PO
[2020-02-12 19:10] VITALS: Ht 175.3 cm; Wt 79.5 kg
[2020-02-12 20:33] LABS: BASOPHILS 0.6 % (0-2); EOSINOPHILS 0.9 % (0-7); HEMATOCRIT 37.6 % (42.0-54.0); HEMOGLOBIN 11.6 g/dL (13.5-17.5); IMMATURE GRANULOCYTES 0.2 % (0-5); LYMPHOCYTES 31.2 % (15-50); MCH 21.2 pg (26.0-34.0); MCHC 30.9 g/dL (31.0-37.0); MCV 68.9 fL (80.0-100.0); MONOCYTES 19.9 % (2-11); NEUTROPHILS 47.2 % (40-80); PLATELET COUNT 223 10x3/uL (130-400); RBC 5.46 10x6/uL (4.20-6.10); RDW 20.4 % (11.5-14.5); WBC 5.3 10x3/uL (4.8-10.8)
[2020-02-12 20:42] LABS: APTT 33.9 SECONDS (22.8-39.4); INR 1.47 (0.85-1.17); PROTIME 17.7 SECONDS (11.6-15.0)
[2020-02-12 20:46] LABS: CALC OSMOLALITY 282 mosm/kg (275-300); CARBON DIOXIDE 30.3 mmol/L (21.0-32.0); CHLORIDE - SERUM 104 mmol/L (98-107); CREATININE - SERUM 1.1 mg/dL (0.6-1.3); POTASSIUM - SERUM 3.4 mmol/L (3.5-5.1); SODIUM 142 mmol/L (136-145); UREA NITROGEN 9 mg/dL (7-18); eGFR NON AFRICAN AMERICAN 78 mL/min (90-120)
[2020-02-12 20:47] LABS: GLUCOSE 109 mg/dL (74-106)
[2020-02-12 21:10] LABS: ALBUMIN 2.8 g/dL (3.4-5.0); ALKALINE PHOSPHATASE 100 U/L (30-120); ALT (SGPT) 38 U/L (10-68); CREATINE KINASE 161 UL (21-232); PROTEIN - SERUM 7.1 g/dL (6.4-8.2)
[2020-02-12 21:11] LABS: TROPONIN-I 0.016 ng/mL (0.000-0.060)
[2020-02-12 21:59] VITALS: BP 123/93
== END 2020-02-12 21:59 | disposition home or self-care (01) ==
LOC: D.ER 18:58
PROVIDERS: Family Medicine
DX: I11.0 Hypertensive heart disease with heart failure (principal); I50.9 Heart failure, unspecified; R60.0 Localized edema; E87.6 Hypokalemia; E11.9 Type 2 diabetes mellitus without complications; Z72.0 Tobacco use

== ENCOUNTER 2020-02-13 20:33 | Inpatient (IN) | payer MEDICARE ==
[~2020-02-13] VITALS: Ht 175.3 cm; Wt 68.2 kg
[2020-02-13 20:51] LABS: BASOPHILS 0.5 % (0-2); EOSINOPHILS 0.5 % (0-7); HEMATOCRIT 37.7 % (42.0-54.0); HEMOGLOBIN 11.7 g/dL (13.5-17.5); IMMATURE GRANULOCYTES 0.3 % (0-5); LYMPHOCYTES 29.2 % (15-50); MCH 21.4 pg (26.0-34.0); MCV 68.9 fL (80.0-100.0); MONOCYTES 12.7 % (2-11); NEUTROPHILS 56.8 % (40-80); PLATELET COUNT 236 10x3/uL (130-400); RBC 5.47 10x6/uL (4.20-6.10); RDW 20.6 % (11.5-14.5); WBC 6.2 10x3/uL (4.8-10.8)
[2020-02-13 20:58] LABS: CALC OSMOLALITY 272 mosm/kg (275-300); CALCIUM 8.4 mg/dL (8.5-10.1); CARBON DIOXIDE 25.9 mmol/L (21.0-32.0); CHLORIDE - SERUM 101 mmol/L (98-107); CREATININE - SERUM 1.2 mg/dL (0.6-1.3); GLUCOSE 133 mg/dL (74-106); POTASSIUM - SERUM 3.8 mmol/L (3.5-5.1); SODIUM 136 mmol/L (136-145); UREA NITROGEN 10 mg/dL (7-18); eGFR NON AFRICAN AMERICAN 70 mL/min (90-120)
[2020-02-13 20:59] LABS: APTT 33.6 SECONDS (22.8-39.4); INR 1.55 (0.85-1.17); PROTIME 18.4 SECONDS (11.6-15.0)
[2020-02-13 21:15] LABS: ALBUMIN 2.7 g/dL (3.4-5.0); ALKALINE PHOSPHATASE 95 U/L (30-120); ALT (SGPT) 32 U/L (10-68); BILIRUBIN - TOTAL 1.55 mg/dL (0.2-1.3); CREATINE KINASE 129 UL (21-232); PRO BNP 8312 pg/mL (0-125); PROTEIN - SERUM 7.2 g/dL (6.4-8.2); TROPONIN-I 0.021 ng/mL (0.000-0.060)
[2020-02-13 21:32] LABS: BILIRUBIN NEGATIVE (NEGATIVE); GLUCOSE NEGATIVE (NEGATIVE); KETONE NEGATIVE (NEGATIVE); NITRITE NEGATIVE (NEGATIVE); UROBILINOGEN 4 mg/dL (NORMAL)
[2020-02-13 22:02] LABS: UDS - AMPHET POSITIVE QUAL (NEGATIVE); UDS - BARB NEGATIVE QUAL (NEGATIVE); UDS - BENZO NEGATIVE QUAL (NEGATIVE); UDS - COCAINE NEGATIVE QUAL (NEGATIVE); UDS - OPIATE POSITIVE QUAL (NEGATIVE); UDS - PCP NEGATIVE QUAL (NEGATIVE); UDS - THC POSITIVE QUAL (NEGATIVE)
--- NOTE | 2020-02-13 23:35 | NUR ---
ADMITTED TO ROOM FROM ER ALERT AND ORIENTIATED, DENIES PAIN REQUESTING COUGH MEDICINE, INSTRUCTED WILL CHECK WITH DR ABOUT ORDERING COUGH MEDS, PT IS UNABLE TO TELL ME NAMES OF HIS HOME MEDS OR WHEN HE TOOK ANY MEDS LAST, DESCRIBES 3 PILLS HE TAKES A GOLD ONE A LITTLE BITY WHITE ONE AND ANOTHER WHITE ONE, ORIENTIATED TO ROOM CALL LIGHT IN REACH,
[2020-02-14 01:12] VITALS: BP 135/90; BMI 25.9
[2020-02-14 04:00] VITALS: BP 128/98
[2020-02-14 04:47] LABS: CALC OSMOLALITY 269 mosm/kg (275-300); CALCIUM 8.3 mg/dL (8.5-10.1); CARBON DIOXIDE 21.9 mmol/L (21.0-32.0); CHLORIDE - SERUM 102 mmol/L (98-107); CREATININE - SERUM 1.1 mg/dL (0.6-1.3); GLUCOSE 124 mg/dL (74-106); MAGNESIUM - SERUM 1.8 mg/dL (1.8-2.4); PHOSPHOROUS 3.3 mg/dL (2.5-4.9); POTASSIUM - SERUM 3.7 mmol/L (3.5-5.1); SODIUM 135 mmol/L (136-145); UREA NITROGEN 10 mg/dL (7-18); eGFR NON AFRICAN AMERICAN 78 mL/min (90-120)
[2020-02-14 04:49] LABS: HEMATOCRIT 36.4 % (42.0-54.0); HEMOGLOBIN 10.9 g/dL (13.5-17.5); LYMPHOCYTES 28.5 % (15-50); MCHC 29.9 g/dL (31.0-37.0); MCV 70.3 fL (80.0-100.0); MEAN PLATELET VOLUME 10.3 fL (7.4-10.4); NEUTROPHILS 57.2 % (40-80); PLATELET COUNT 210 10x3/uL (130-400); RBC 5.18 10x6/uL (4.20-6.10); RDW 22.7 % (11.5-14.5); WBC 6.2 10x3/uL (4.8-10.8)
--- NOTE | 2020-02-14 07:21 | NUR ---
ASSESSMENT DONE. WITHOUT DISTRESS NOTED
[2020-02-14 09:05] VITALS: BP 120/81
[2020-02-14 12:59] VITALS: BP 117/67
[2020-02-14 13:41] VITALS: Ht 175.3 cm; Wt 68.2 kg
--- NOTE | 2020-02-14 17:03 | NUR ---
WITHOUT CHANGES OR DISTRESS NOTED AT THSI TIME. DENIES NEEDS
[2020-02-14 17:06] LABS: ERYTHROCYTE SEDIMENTATION RATE 8 mm/hr (0-15)
[2020-02-14 17:44] VITALS: BP 115/80
--- NOTE | 2020-02-14 19:00 | NUR ---
REPORT RECEIVED. BEDISDE SHIFT REPORT COMPLETE. PT IN BED WATCHING TV RR EVEN AND UNLABORED. IV INFUSING PER ORDER. NO S/SX OF DISTRESS OBSERVED. CALL LIGHT IN REACH. WILL CPOC.
[2020-02-14 22:37] VITALS: BP 124/77
[2020-02-15 00:40] VITALS: BP 118/84
[2020-02-15 05:05] LABS: BASOPHILS 0.4 % (0-2); EOSINOPHILS 0.7 % (0-7); HEMATOCRIT 40.5 % (42.0-54.0); HEMOGLOBIN 12.8 g/dL (13.5-17.5); IMMATURE GRANULOCYTES 0.5 % (0-5); MCH 21.3 pg (26.0-34.0); MCHC 31.6 g/dL (31.0-37.0); NEUTROPHILS 57.4 % (40-80); PLATELET COUNT 187 10x3/uL (130-400); RBC 6.01 10x6/uL (4.20-6.10); RDW 21.3 % (11.5-14.5); WBC 5.6 10x3/uL (4.8-10.8)
[2020-02-15 05:15] LABS: MCV 67.4 fL (80.0-100.0)
[2020-02-15 05:28] LABS: ANION GAP 15.4 mmol/L (8-16); CALCIUM 9.1 mg/dL (8.5-10.1); CARBON DIOXIDE 25.9 mmol/L (21.0-32.0); CREATININE - SERUM 1.3 mg/dL (0.6-1.3); MAGNESIUM - SERUM 1.8 mg/dL (1.8-2.4); PHOSPHOROUS 4.6 mg/dL (2.5-4.9); POTASSIUM - SERUM 3.3 mmol/L (3.5-5.1)
--- NOTE | 2020-02-15 06:04 | NUR ---
PT HAS SHUT OFF HIS DOUBUTAIME DRIP TWICE DURING THE NIGHT. WHEN QUESTIONED ABOUT IT HE JUST STATED "ISNT THAT THE ONE THAT MAKES ME GO TO THE BATHROOM"
[2020-02-15 06:31] VITALS: BP 112/70
--- NOTE | 2020-02-15 07:00 | NUR ---
RECEIVED REPORT. ASSUMED CARE OF PATIENT. CALL LIGHT WITHIN REACH. NO DISTRESS. NOC NURSE REPORTS PATIENT CONTINUES TO TURN OFF HIS IV BUMEX AND DOBUTAMINE. EDUCATED ON MEDICATIONS AND NOT TO TURN THE PUMPS OFF OR CHANGE SETTINGS.
--- NOTE | 2020-02-15 07:30 | NUR ---
ORANGE JUICE PROVIDED UPON REQUEST. NO DISTRESS.
[2020-02-15 08:07] VITALS: BP 105/69
--- NOTE | 2020-02-15 11:20 | NUR ---
STANDING WEIGHT OBTAINED, 156 LBS.
[2020-02-15 11:32] VITALS: BP 104/50
--- NOTE | 2020-02-15 11:32 | NUR ---
FSBS 130. NO INSULIN PER SLIDING SCALE.
[2020-02-15 14:48] VITALS: BP 109/67
--- NOTE | 2020-02-15 15:00 | NUR ---
PATIENT PROVIDED WITH VANILLA ICE CREAM UPON REQUEST.
--- NOTE | 2020-02-15 16:20 | NUR ---
REQUEST PLACED TO PHARMACY TO RETIME BUMEX DRIP AND DOBUTAMINE DRIP.
--- NOTE | 2020-02-15 16:30 | NUR ---
FSBS 128. NO INSULIN PER SLIDING SCALE.
[2020-02-15 20:00] VITALS: BP 103/63
[2020-02-16 00:01] VITALS: BP 97/50
[2020-02-16 04:46] LABS: BASOPHILS 0.4 % (0-2); EOSINOPHILS 1.5 % (0-7); HEMATOCRIT 43.1 % (42.0-54.0); HEMOGLOBIN 13.4 g/dL (13.5-17.5); IMMATURE GRANULOCYTES 0.5 % (0-5); LYMPHOCYTES 28.9 % (15-50); MCHC 31.1 g/dL (31.0-37.0); MCV 67.4 fL (80.0-100.0); MONOCYTES 19.2 % (2-11); NEUTROPHILS 49.5 % (40-80); RBC 6.39 10x6/uL (4.20-6.10); RDW 21.2 % (11.5-14.5); WBC 5.5 10x3/uL (4.8-10.8)
[2020-02-16 04:47] LABS: PLATELET COUNT 283 10x3/uL (130-400)
[2020-02-16 05:07] LABS: ANION GAP 14.2 mmol/L (8-16); CARBON DIOXIDE 28.7 mmol/L (21.0-32.0); CREATININE - SERUM 1.2 mg/dL (0.6-1.3); MAGNESIUM - SERUM 1.7 mg/dL (1.8-2.4); PHOSPHOROUS 5.2 mg/dL (2.5-4.9)
[2020-02-16 05:09] LABS: POTASSIUM - SERUM 2.9 mmol/L (3.5-5.1)
--- NOTE | 2020-02-16 07:00 | NUR ---
RECEIVED REPORT. ASSUMED CARE OF PATIENT. PATIENT RESTING IN BED WITH EYES CLOSED. EASILY AROUSED. PATIENT NEW WEIGHT RECORDED AND DOBUTAMINE DRIP ADJUSTED ACCORDINGLY TO NEW WEIGHT. NO DISTRESS. CALL LIGHT WITHIN REACH.
[2020-02-16 07:30] VITALS: BP 98/63
--- NOTE | 2020-02-16 13:02 | NUR ---
ORDER PLACED TO DIETARY PER PATIENT REQUEST AT THIS TIME.
--- NOTE | 2020-02-16 13:54 | NUR ---
SODA PROVIDED UPON REQUEST. LAST OF EP ADMINISTERED AT THIS TIME.
[2020-02-16 14:06] VITALS: BP 102/73
--- NOTE | 2020-02-16 16:03 | NUR ---
DIET MESSAGE PLACED PER REQUEST OF PATIENT FOR SALAD FOR DINNER TODAY.
--- NOTE | 2020-02-16 16:03 | NUR ---
FSBS 145. NO INSULIN PER SLIDING SCALE.
[2020-02-16 20:00] VITALS: BP 105/78
[2020-02-17] VITALS: BP 110/76
[2020-02-17 04:00] VITALS: BP 102/70
[2020-02-17 04:53] LABS: BASOPHILS 0.8 % (0-2); EOSINOPHILS 4.1 % (0-7); HEMATOCRIT 46.3 % (42.0-54.0); HEMOGLOBIN 14.6 g/dL (13.5-17.5); IMMATURE GRANULOCYTES 0.4 % (0-5); LYMPHOCYTES 36.1 % (15-50); MCH 21.3 pg (26.0-34.0); MCHC 31.5 g/dL (31.0-37.0); MCV 67.6 fL (80.0-100.0); MONOCYTES 20.6 % (2-11); PLATELET COUNT 268 10x3/uL (130-400); RDW 21.6 % (11.5-14.5); WBC 4.9 10x3/uL (4.8-10.8)
[2020-02-17 04:55] LABS: RBC 6.85 10x6/uL (4.20-6.10)
[2020-02-17 05:01] LABS: CALC OSMOLALITY 267 mosm/kg (275-300); CARBON DIOXIDE 29.4 mmol/L (21.0-32.0); CHLORIDE - SERUM 94 mmol/L (98-107); CREATININE - SERUM 1.1 mg/dL (0.6-1.3); GLUCOSE 101 mg/dL (74-106); PHOSPHOROUS 3.9 mg/dL (2.5-4.9); POTASSIUM - SERUM 3.6 mmol/L (3.5-5.1); SODIUM 132 mmol/L (136-145); eGFR NON AFRICAN AMERICAN 78 mL/min (90-120)
[2020-02-17 05:08] LABS: UREA NITROGEN 20 mg/dL (7-18)
[2020-02-17 10:14] VITALS: BP 96/75
[2020-02-17 12:00] VITALS: BP 99/64
--- NOTE | 2020-02-17 12:46 | NUR ---
Nutrition Follow-up: Overall good PO intake. Diet: Diabetic PO intake: 89% avg x last 7 meals Wt: 148# (02/15); 156# (02/14); 188# (02/13) - diuresing Labs noted: Na 132, Glu 101 Meds noted: Bumex -Monitor wt; noted daily wts ordered. -RD following.
[2020-02-17 16:00] VITALS: BP 114/74
--- NOTE | 2020-02-17 19:42 | NUR ---
RECEIVED BEDSIDE REPORT. PATIENT IS ALERT AND ORIENTED, RESTING COMFORTABLY IN BED. RESPIRATIONS ARE EVEN AND UNLABORED NO S/S OF DISTRESS. NO C/O PAIN. PATIENT STATED THAT HE WAS SUPPOSE TO BE D/C'd TONIGHT. THIS RN DOUBLE CHECKED ORDERS AND EXPLAINED THAT CURRENTLY THERE WAS NOT A DISCHARGE ORDER. PATIENT DOBUTAMINE WAS INFUSING AT THIS TIME. PATIENT REQUESTED ICE CREM. WHEN THIS RN RETURNED TO PATIENT ROOM. PATIENT HAD TURNED IS IV PUMP OFF. CALL LIGHT WITHIN REACH. WILL CPOC.
[2020-02-17 20:00] VITALS: BP 108/75
--- NOTE | 2020-02-17 23:38 | NUR ---
PATIENT REFUSING TO WEAR TELEMETRY. EDUCATED PATIENT TO THE IMPORTANCE OF WEARING THE TELEMETRY BOX. PATIENT CONTIUES TO REFUSE.
[2020-02-18] VITALS: BP 102/70
--- NOTE | 2020-02-18 00:10 | NUR ---
WENT TO PATIENT ROOM TO TURN OFF DOBUTAMINE DRIP PER ORDER. PATIENT HAD ALREADY DISCONNECTED HIMSELF FROM THE IV AND DRAPED TUBING OVER IV PUMP DRIPPING ONTO THE FLOOR.
[2020-02-18 04:00] VITALS: BP 102/70
[2020-02-18 08:13] VITALS: BP 114/57
--- NOTE | 2020-02-18 08:54 | NUR ---
PT DEMANDING TO BE DISCHARGED. I STATED TO PT THAT IS UP TO THE DOCTOR NOT ME. HE STATES "YOU NEED TO GO FIND THAT DOCTOR AND GET THEM IN HERE." I STATED TO HIM THE DOCTOR HAS NO GOTTEN HERE YET AND THEY WILL COME SEE HIM TODAY. PT VERBALIZED UNDERSTANDING.
--- NOTE | 2020-02-18 09:21 | MORECARE ---
CASE MANAGEMENT DISCHARGE SUMMARY PATIENT: TRAM BYERS UNIT: [id number] ADM DATE: 02/13/20 AGE: 44 : 77 SEX: M ROOM/BED: D.1390 AUTHOR: TAVIA GONZALEZ PHYSICIAN: REFERRING PHYSICIAN: INEZ LAWSON MD DATE OF SERVICE: 02/18/20 Discharge Plan Patient Name: TRAM BYERS Facility: [facility]:[place] : 1975 Planned Disposition: Home Anticipated Discharge Date: 02/18/20 Discharge Date: Expected LOS: 5 Initial Reviewer: [email or web address] Initial Review Date: 02/18/2020 Generated: 02/18/20 10:21 am Comments DCP- Discharge Planning Updated by [email or web address]: Nicole Richard on 02/18/20 8:[address] Patient Name: TRAM BYERS Admission Status: ER Accout number: [id number] Admission Date: 02-13-2020 : 1975 Admission Diagnosis: Attending: INEZ LAWSON Current LOS: 5 Anticipated DC Date: 02-18-2020 Planned Disposition: Home Primary Insurance: MEDICARE A & B Discharge Planning Comments: CM met with patient to complete initial dc planning assessment. CM educated patient on the CM role and verbal consent given by patient to complete assessment. Patient lives at home alone. At discharge patient plans to return and feels this is a safe discharge. CM discussed availability of home health, rehab services, and medical equipment. Patient denied known discharge needs at this time. Patient had poor eye contact during assessment. He states he's about to call his ride to come and get him. I informed him that he did not have discharge orders yet. Patient states he does not have a glucometer and does not want one. States "that'll just be dirty." States he does have a scale, but does not weigh daily. I informed him that he should weigh himself every day and notify the physician for weight gain as instructed. I gave him the number to [facility] and physician referral line. CM will continue to follow and will assist as needed with dc plans/needs. Sewing Machine Operator Floorperson: Nicole Richard DCPIA - Discharge Planning Initial Assessment Updated by [id number]: Nicole Richard on 02/18/20 9:15 am * Is the patient Alert and Oriented? Yes * How many steps to enter\\exit or inside your home? 0/0 * PCP None * Pharmacy [facility] [address] * Preadmission Environment Home Alone * ADLs Independent * Equipment Other * Other Equipment Scale * List name and contact numbers for known caregivers / representatives who currently or will assist patient after discharge: Jorge davila [phone] * Verbal permission to speak to the caregivers and representatives has been obtained from the patient. Yes * Community resources currently utilized None * Additional services required to return to the preadmission environment? No * Can the patient safely return to the preadmission environment? Yes * Has this patient been hospitalized within the prior 30 days at any hospital? Yes Coverage Notice Reviewer: [id number] - Nicole Richard Notice Issued Date-Time: 02/18/2020 9:11 Notice Type: IM Discharge Notice Notice Delivered To: Patient Relationship to Patient: Self Bookstore Manager Name: Delivery Method: HAND - Hand Delivered Geetha Days: Prior Verbal Notification: Recipient Understood Notice: Yes Recipient Signature: Yes Med Rec Note Co-signed by Attending: Coverage Notice Comment: IMM explained, signed, given, copy placed in MR Patient Name: TRAM BYERS Page [phone] at 0921 All edits/amendments must be made on the electronic document DICTATION DATE: 02/18/20920 MILKER MACHINE: JERRY 02/18/20920 RPT#: [id number] DC DATE: STATUS: ADM IN [facility] [address] [place] [address] END OF REPORT
[2020-02-18 09:28] LABS: ALBUMIN 3.2 g/dL (3.4-5.0); ANION GAP 12.6 mmol/L (8-16); BILIRUBIN - TOTAL 0.98 mg/dL (0.2-1.3); CALCIUM 8.8 mg/dL (8.5-10.1); CARBON DIOXIDE 29.1 mmol/L (21.0-32.0); CREATININE - SERUM 1.2 mg/dL (0.6-1.3); POTASSIUM - SERUM 3.7 mmol/L (3.5-5.1); PROTEIN - SERUM 8.5 g/dL (6.4-8.2)
[2020-02-18 09:29] LABS: EOSINOPHILS 4.8 % (0-7); HEMATOCRIT 45.2 % (42.0-54.0); HEMOGLOBIN 14.1 g/dL (13.5-17.5); IMMATURE GRANULOCYTES 0.2 % (0-5); LYMPHOCYTES 39.8 % (15-50); MCH 21.2 pg (26.0-34.0); MCHC 31.2 g/dL (31.0-37.0); MCV 67.9 fL (80.0-100.0); MONOCYTES 17.8 % (2-11); NEUTROPHILS 36.4 % (40-80); PLATELET COUNT 295 10x3/uL (130-400); RDW 21.8 % (11.5-14.5); WBC 5.2 10x3/uL (4.8-10.8)
[2020-02-18 09:33] LABS: RBC 6.66 10x6/uL (4.20-6.10)
--- NOTE | 2020-02-18 09:39 | NUR ---
SPOKE WITH SOTO LOVELACE AND STATED TO HER PT'S RBC IS 6.66 AND PT WANTS TO BE DISCHARGED TODAY. SHE STATES SHE IS NOT WORRIED ABOUT RBC AND IF CARDIOLOGY SEES HIM AND SAYS HE CAN BE DISCHARGED THEY WILL DISCHARGE HIM. I VERBALIZED UNDERSTANDING.
--- NOTE | 2020-02-18 11:06 | NUR ---
PT WEIGHED ON STANDING SCALE 150LB.
--- NOTE | 2020-02-18 11:53 | NUR ---
PT WAS SEEN OUTSIDE BY HOUSE SUPERVISPR LEAVING IN A BLACK SUV WITH IV STILL IN ARM. DR. MAHONEY, SOTO LOVELACE, AND GAIL NURSE WHANAU SUPPORT WORKER MADE AWARE AND THEY ALL VERBALIZED UNDERSTANDING.WILL FILL OUT INCIDENT REPORT.
== END 2020-02-18 11:54 | disposition left against medical advice (07) | DRG 292 ==
LOC: D.ER 20:33 → D.M2 22:49
PROVIDERS: Family Medicine; ADMIT Internal Medicine Nephrology; ATTEND Internal Medicine Nephrology
DX: I11.0 Hypertensive heart disease with heart failure (principal); F17.213 Nicotine dependence, cigarettes, with withdrawal; I50.33 Acute on chronic diastolic (congestive) heart failure; E11.65 Type 2 diabetes mellitus with hyperglycemia; D50.9 Iron deficiency anemia, unspecified; Z91.14 Patient's other noncompliance with medication regimen; F15.10 Other stimulant abuse, uncomplicated; F12.10 Cannabis abuse, uncomplicated

== ENCOUNTER 2020-03-11 18:26 | Inpatient (IN) | payer MEDICARE ==
[~2020-03-11] VITALS: Ht 175.3 cm; Wt 83.9 kg
[2020-03-11 19:31] LABS: BASOPHILS 0.4 % (0-2); EOSINOPHILS 1.5 % (0-7); HEMATOCRIT 37.2 % (42.0-54.0); HEMOGLOBIN 11.3 g/dL (13.5-17.5); IMMATURE GRANULOCYTES 0.4 % (0-5); LYMPHOCYTES 29.3 % (15-50); MCHC 30.4 g/dL (31.0-37.0); MCV 69.3 fL (80.0-100.0); MONOCYTES 13.3 % (2-11); NEUTROPHILS 55.1 % (40-80); RBC 5.37 10x6/uL (4.20-6.10); RDW 23.6 % (11.5-14.5); WBC 4.6 10x3/uL (4.8-10.8)
--- NOTE | 2020-03-11 19:34 | NUR ---
PT VOIDED LESS THAN 30CC, DARK YELLOW URINE. URINE SPECIMEN SENT TO LAB
[2020-03-11 19:36] LABS: PLATELET COUNT 203 10x3/uL (130-400)
[2020-03-11 19:44] LABS: CALC OSMOLALITY 274 mosm/kg (275-300); CALCIUM 8.5 mg/dL (8.5-10.1); CARBON DIOXIDE 25.8 mmol/L (21.0-32.0); CHLORIDE - SERUM 103 mmol/L (98-107); CREATININE - SERUM 1.2 mg/dL (0.6-1.3); GLUCOSE 97 mg/dL (74-106); POTASSIUM - SERUM 3.3 mmol/L (3.5-5.1); SODIUM 138 mmol/L (136-145); UREA NITROGEN 10 mg/dL (7-18); eGFR NON AFRICAN AMERICAN 70 mL/min (90-120)
[2020-03-11 20:00] VITALS: BP 123/96
[2020-03-11 20:01] LABS: ALBUMIN 3.2 g/dL (3.4-5.0); ALKALINE PHOSPHATASE 98 U/L (30-120); ALT (SGPT) 27 U/L (10-68); BILIRUBIN - TOTAL 2.39 mg/dL (0.2-1.3); CKMB 1.2 U/L (0.0-3.6); CREATINE KINASE 105 UL (21-232); PRO BNP 6467 pg/mL (0-125); PROTEIN - SERUM 7.4 g/dL (6.4-8.2); TROPONIN-I 0.017 ng/mL (0.000-0.060)
[2020-03-11 20:45] LABS: APTT 32.2 SECONDS (22.8-39.4); INR 1.53 (0.85-1.17); PROTIME 18.2 SECONDS (11.6-15.0)
[2020-03-11 21:01] VITALS: BP 134/98
--- NOTE | 2020-03-11 22:07 | NUR ---
PT UPDATED ON PLAN OF CARE
--- NOTE | 2020-03-11 22:09 | NUR ---
PT VOIDED APPROX 1400ML CLEAR YELLOW URINE. PT STATES THAT HE SPILLED ON HIS GOWN, STATES "I CLEANED MYSELF UP." DENIES NEEDS AT THIS TIME, SITTING IN CHAIR AT BEDSIDE. WILL CONTINUE TO MONITOR.
--- NOTE | 2020-03-11 22:21 | NUR ---
PT VOIDED APPROX 1400ML CLEAR YELLOW URINE, PT STATES THAT HE SPILLED ON HIS GOWN. STATES "I CLEANED MYSELF UP." DENIES NEEDS AT THIS TIME. SITTING IN CHAIR AT BEDSIDE, NO SIGNS DISTRESS NOTED. WILL CONTINUE TO MONITOR.
--- NOTE | 2020-03-11 23:10 | NUR ---
PT FROM ER VIA STRETCHER, PT AAO X 3, RESP EVEN AND UNLABORED. NO DISTRESS NOTED, CL IN REACH, SR UP X 2.
--- NOTE | 2020-03-11 23:59 | NUR ---
PT REFUSED TO TAKE K-DUR 20 MEQ FOR LOW POTASSIUM LEVEL AT THIS TIME.
[2020-03-12 03:53] VITALS: BMI 26.8
[2020-03-12 06:44] LABS: EOSINOPHILS 1.3 % (0-7); HEMATOCRIT 36.7 % (42.0-54.0); HEMOGLOBIN 11.4 g/dL (13.5-17.5); IMMATURE GRANULOCYTES 0.3 % (0-5); LYMPHOCYTES 32.7 % (15-50); MCH 21.6 pg (26.0-34.0); MCHC 31.1 g/dL (31.0-37.0); MCV 69.4 fL (80.0-100.0); MONOCYTES 12.8 % (2-11); NEUTROPHILS 51.9 % (40-80); PLATELET COUNT 210 10x3/uL (130-400); RBC 5.29 10x6/uL (4.20-6.10); RDW 23.7 % (11.5-14.5); WBC 3.8 10x3/uL (4.8-10.8)
[2020-03-12 06:54] LABS: ALBUMIN 2.9 g/dL (3.4-5.0); ANION GAP 11.9 mmol/L (8-16); CALCIUM 8.3 mg/dL (8.5-10.1); CARBON DIOXIDE 27.2 mmol/L (21.0-32.0); CREATININE - SERUM 1.2 mg/dL (0.6-1.3); MAGNESIUM - SERUM 1.9 mg/dL (1.8-2.4); PHOSPHOROUS 3.4 mg/dL (2.5-4.9); POTASSIUM - SERUM 3.1 mmol/L (3.5-5.1)
[2020-03-12 06:56] LABS: DIGOXIN 0.06 ng/mL (0.90-2.00)
--- NOTE | 2020-03-12 07:30 | NUR ---
PT JORDIN DSOUZA, RR EVEN AND UNLABORED. RECIEVED APPLE JUICE PER REQUEST. CALL LIGHT WITHIN REACH. DENIES FURTHER NEEDS OR PAIN AT THIS TIME. BED IN LOWEST POSITION. INSTRUCTED TO USE URINAL FOR ACCURATE I&O. WILL CONTINUE TO MONITOR.
[2020-03-12 09:15] LABS: UDS - AMPHET NEGATIVE QUAL (NEGATIVE); UDS - BARB NEGATIVE QUAL (NEGATIVE); UDS - BENZO NEGATIVE QUAL (NEGATIVE); UDS - COCAINE NEGATIVE QUAL (NEGATIVE); UDS - OPIATE NEGATIVE QUAL (NEGATIVE); UDS - PCP NEGATIVE QUAL (NEGATIVE); UDS - THC POSITIVE QUAL (NEGATIVE)
[2020-03-12 10:13] LABS: BILIRUBIN NEGATIVE (NEGATIVE); GLUCOSE NEGATIVE (NEGATIVE); KETONE NEGATIVE (NEGATIVE); NITRITE NEGATIVE (NEGATIVE); SPECIFIC GRAVITY 1.015 (1.005-1.020); UROBILINOGEN 8 mg/dL (NORMAL)
[2020-03-12 10:21] LABS: BACTERIA FEW /hpf (NEGATIVE); EPITHELIAL CELLS 0-5 /hpf (0-5); RED CELLS - URINE 0-5 /hpf (0-5); WHITE CELLS - URINE 0-5 /hpf (NEGATIVE)
[2020-03-12 10:27] VITALS: BP 120/80
[2020-03-12 10:48] VITALS: Ht 175.3 cm; Wt 83.9 kg
[2020-03-12 14:00] VITALS: BP 101/81
--- NOTE | 2020-03-12 17:06 | NUR ---
I have reviewed this patient and I concur with the Shift Assessment completed by the Licensed Practical Nurse today this shift.
[2020-03-12 17:24] VITALS: BP 115/81
--- NOTE | 2020-03-12 19:30 | NUR ---
PT IN BED, AAO X 3, RESP EVEN AND UNLABORED, NO DISTRESS NOTED, CL IN REACH, SR UP X 2.
[2020-03-12 20:00] VITALS: BP 104/73
[2020-03-13 00:33] VITALS: BP 109/73
--- NOTE | 2020-03-13 03:40 | NUR ---
I have reviewed this patient and I concur with the Shift Assessment completed by the Licensed Practical Nurse today this shift.
[2020-03-13 04:00] VITALS: BP 129/63
[2020-03-13 05:01] LABS: BASOPHILS 0.2 % (0-2); EOSINOPHILS 2.7 % (0-7); HEMATOCRIT 31.7 % (42.0-54.0); HEMOGLOBIN 9.7 g/dL (13.5-17.5); IMMATURE GRANULOCYTES 0.2 % (0-5); MCH 20.9 pg (26.0-34.0); MCHC 30.6 g/dL (31.0-37.0); MCV 68.3 fL (80.0-100.0); MONOCYTES 15.7 % (2-11); RBC 4.64 10x6/uL (4.20-6.10); RDW 23.1 % (11.5-14.5); WBC 4.1 10x3/uL (4.8-10.8)
[2020-03-13 05:02] LABS: NEUTROPHILS 36.2 % (40-80); PLATELET COUNT 154 10x3/uL (130-400)
[2020-03-13 05:10] LABS: ALBUMIN 2.6 g/dL (3.4-5.0); BILIRUBIN - TOTAL 1.14 mg/dL (0.2-1.3); CALCIUM 7.8 mg/dL (8.5-10.1); CARBON DIOXIDE 27.9 mmol/L (21.0-32.0); CREATININE - SERUM 1.3 mg/dL (0.6-1.3); MAGNESIUM - SERUM 1.7 mg/dL (1.8-2.4); PHOSPHOROUS 3.8 mg/dL (2.5-4.9); PROTEIN - SERUM 6.2 g/dL (6.4-8.2)
[2020-03-13 05:28] LABS: ANION GAP 7.9 mmol/L (8-16)
[2020-03-13 05:29] LABS: POTASSIUM - SERUM 2.8 mmol/L (3.5-5.1)
[2020-03-13 07:57] VITALS: BP 119/86
--- NOTE | 2020-03-13 09:08 | NUR ---
PT VANNESA MORE AM 185LBS. PT PULLED IV ACCSESS OUT WITH DOUBUTAMINE DRIP INFUSING. DRIP D/C'D BY PROVIDER. PT A/O X4. RR EVEN AND UNLABORED. BED LOW CALL LIGHT WITHIN REACH. WILL CONTINUE TO MONITOR.
[2020-03-13 11:21] VITALS: BP 110/73
[2020-03-13 16:54] VITALS: BP 111/86
--- NOTE | 2020-03-13 19:30 | NUR ---
PT UP IN CHAIR, AAO X 2, RESP EVEN AND UNLABORED. NO DISTRESS NOTED, CL IN REACH.
[2020-03-13 20:32] VITALS: BP 101/81
[2020-03-14] VITALS: BP 109/80
[2020-03-14 05:17] VITALS: BP 118/83
[2020-03-14 05:53] LABS: BILIRUBIN - TOTAL 1.37 mg/dL (0.2-1.3); CALCIUM 8.3 mg/dL (8.5-10.1); CREATININE - SERUM 1.4 mg/dL (0.6-1.3); PHOSPHOROUS 4.3 mg/dL (2.5-4.9); PROTEIN - SERUM 7.2 g/dL (6.4-8.2)
[2020-03-14 06:00] LABS: BASOPHILS 0.4 % (0-2); EOSINOPHILS 2.2 % (0-7); HEMATOCRIT 35.8 % (42.0-54.0); IMMATURE GRANULOCYTES 0.4 % (0-5); LYMPHOCYTES 39.8 % (15-50); MCH 21.3 pg (26.0-34.0); MCHC 30.7 g/dL (31.0-37.0); MCV 69.2 fL (80.0-100.0); NEUTROPHILS 41.2 % (40-80); PLATELET COUNT 157 10x3/uL (130-400); RBC 5.17 10x6/uL (4.20-6.10); RDW 23.1 % (11.5-14.5); WBC 4.6 10x3/uL (4.8-10.8)
--- NOTE | 2020-03-14 07:00 | NUR ---
RECEIVED REPORT. ASSUMED CARE OF PATIENT. PATIENT RESTING IN BED WITH EYES CLOSED. RESP EVEN AND UNLABORED. PATIENT REFUSES TELEMETRY. CALL LIGHT WITHIN REACH. NO DISTRESS.
[2020-03-14 09:49] VITALS: BP 112/81
--- NOTE | 2020-03-14 13:24 | NUR ---
20 GAUGE IV REMOVED FROM RIGHT FOREARM. PATIENT IS BEING DISCHARGED. CATHETER TIP INTACT. NO BLEEDING FROM SITE. 2X2 GAUZE APPLIED AND SECURED WITH BANDAID. TOLERATED IV REMOVAL WELL.
[2020-03-14 13:50] VITALS: BP 107/78
--- NOTE | 2020-03-14 14:27 | NUR ---
PATIENT NOTIFIED THIS CONCRETE FENCE BUILDER THAT HE WILL NOT BE ABLE TO LEAVE UNTIL 1800 TODAY DUE TO HIS RIDE CAN NOT PICK HIM UP UNTIL THEN.
--- NOTE | 2020-03-14 17:10 | NUR ---
DISCHARGE INSTRUCTIONS PROVIDED TO PATIENT. PATIENT VERBALIZED UNDERSTANDING OF ALL INSTRUCTIONS PROVIDED. STRESSED THE IMPORTANCE OF ADHERING TO CURRENT MEDICATION REGIMEN.
--- NOTE | 2020-03-14 17:18 | NUR ---
SPOKE TO PATIENTS BROTHER TAMMI AND HE DOESN'T GET OFF WORK TILL 6PM BUT WILL CALL HIS COUSIN TO COME AND GET THE PATIENT. PATIENT HAS BEEN PROVIDED WITH DISCHARGE INSTRUCTIONS. PATIENT VERBALIZED UNDERSTANDING OF ALL INSTRUCTIONS PROVIDED.
--- NOTE | 2020-03-14 18:02 | NUR ---
PATIENT LEFT UNIT VIA WHEELCHAIR AT THIS TIME. PATIENT DISCHARGED TO HOME WITH FAMILY. NO DISTRESS UPON LEAVING UNIT. PATIENT LEFT UNIT WITH ALL PERSONAL BELONGINGS.
--- NOTE | 2020-03-15 17:27 | MORECARE ---
CASE MANAGEMENT DISCHARGE SUMMARY PATIENT: TRAM BYERS UNIT: [id number] ADM DATE: 03/11/20 AGE: 44 : 77 SEX: M ROOM/BED: D.2106 AUTHOR: TAVIA GONZALEZ PHYSICIAN: REFERRING PHYSICIAN: INEZ LAWSON MD DATE OF SERVICE: 03/15/20 Discharge Plan Patient Name: TRAM BYERS [facility] [facility] 1975 Planned Disposition: Home Anticipated Discharge Date: Discharge Date: 03/14/2020 Expected LOS: Initial Reviewer: [email or web address] Initial Review Date: 03/12/2020 Generated: 03/15/20 6:27 pm Patient Name: TRAM BYERS Page [phone] at 5727 All edits/amendments must be made on the electronic document DICTATION DATE: 03/15/201726 MANAGER HAIR: JERRY 03/15/201726 RPT#: [id number] DC DATE:03/14/20 STATUS: DIS IN [facility] [address] [facility] [place] [address] END OF REPORT
--- NOTE | 2020-03-15 17:34 | MORECARE ---
CASE MANAGEMENT DISCHARGE SUMMARY PATIENT: TRAM BYERS UNIT: [id number] ADM DATE: 03/11/20 AGE: 44 : [birth year] SEX: M ROOM/BED: D.2106 AUTHOR: TAVIA GONZALEZ PHYSICIAN: REFERRING PHYSICIAN: INEZ LAWSON MD DATE OF SERVICE: 03/15/20 Discharge Plan Patient Name: TRAM BYERS Facility: [facility]:[place] : 1975 Planned Disposition: Home Anticipated Discharge Date: Discharge Date: 03/14/2020 Expected LOS: Initial Reviewer: [email or web address] Initial Review Date: 03/12/2020 Generated: 03/15/20 6:34 pm DCPIA - Discharge Planning Initial Assessment Updated by [email or web address]: Yoselyn Lindsey on 03/15/20 5:33 pm * Is the patient Alert and Oriented? Yes * How many steps to enter\exit or inside your home? * PCP NO PCP * Pharmacy [facility] * Preadmission Environment Home Alone * ADLs Independent * Equipment None * List name and contact numbers for known caregivers / representatives who currently or will assist patient after discharge: TAMMI EARL DANA - [phone] * Verbal permission to speak to the caregivers and representatives has been obtained from the patient. N/A * Community resources currently utilized None * Additional services required to return to the preadmission environment? No * Can the patient safely return to the preadmission environment? Yes * Has this patient been hospitalized within the prior 30 days at any hospital? Yes Coverage Notice Reviewer: [id number] - Yoselyn Lindsey Notice Issued Date-Time: 03/14/2020 13:02 Notice Type: IM Discharge Notice Notice Delivered To: Patient Relationship to Patient: Self Fagoting Machine Operator Name: Delivery Method: HAND - Hand Delivered Geetha Days: Prior Verbal Notification: Recipient Understood Notice: Yes Recipient Signature: Yes Med Rec Note Co-signed by Attending: Coverage Notice Comment: Last DP export: 03/15/20 4:27 p Patient Name: TRAM BYERS Page 97895 at 1734 All edits/amendments must be made on the electronic document DICTATION DATE: 03/15/20 1734 INTEGRATED CIRCUIT IC LAYOUT DESIGNER: JERRY 03/15/20 1734 RPT#: [id number] DC DATE:03/14/20 STATUS: DIS IN [facility] [address] [place] [address] END OF REPORT
--- NOTE | 2020-03-15 17:48 | MORECARE ---
CASE MANAGEMENT DISCHARGE SUMMARY PATIENT: TRAM BYERS UNIT: [id number] ADM DATE: 03/11/20 AGE: 44 : 77 SEX: M ROOM/BED: D.0784 AUTHOR: LISA,DOC PHYSICIAN: REFERRING PHYSICIAN: INEZ LAWSON MD DATE OF SERVICE: 03/15/20 Discharge Plan Patient Name: TRAM BYERS Facility: [facility]:[place] : 1975 Planned Disposition: Home Anticipated Discharge Date: Discharge Date: 03/14/2020 Expected LOS: Initial Reviewer: [email or web address] Initial Review Date: 03/12/2020 Generated: 03/15/20 6:47 pm Comments DCP- Discharge Planning Updated by [email or web address]: Yoselyn Lindsey on 03/15/20 4:[address] Late Entry 03/14/20 Patient Name: TRAM BYERS Admission Status: ER Accout number: [id number] Admission Date: 03-11-2020 : 1975 Admission Diagnosis:HEART FAILURE, UNSPECIFIED Attending: INEZ LAWSON Current LOS: 3 Anticipated DC Date: Planned Disposition: Home Primary Insurance: MEDICARE A & B Discharge Planning Comments: CM met with patient to complete initial dc planning assessment. CM educated patient on the CM role and verbal consent given by patient to complete assessment. Patient lives at home alone. Patient is independent. At discharge patient plans to return home and feels this is a safe discharge. CM found it very difficult to communicate with patient. He wouldn't maintain eye contact and his speech was garbled. CM discussed availability of home health, rehab services, and medical equipment. CM asked patient about obtaining his medications and stated he could get them. CM tried to speech to patient about obtaining a PCP to cut down on his admissions. CM gave information on [facility]. Patient just rolled over in bed. d/c IMM signed 03/14/20 @ 1302 Patient will have family to transport home. Patient denied known discharge needs at this time. CM will continue to follow and will assist as needed with dc plans/needs. Superintendent Sanitation: Yoselyn Lindsey DCPIA - Discharge Planning Initial Assessment Updated by [email or web address]: Yoselyn Lindsey on 03/15/20 5:33 pm * Is the patient Alert and Oriented? Yes * How many steps to enter\exit or inside your home? * PCP NO PCP * [facility] * Preadmission Environment Home Alone * ADLs Independent * Equipment None * List name and contact numbers for known caregivers / representatives who currently or will assist patient after discharge: TMAMI TAYLOR - [phone] * Verbal permission to speak to the caregivers and representatives has been obtained from the patient. N/A * Community resources currently utilized None * Additional services required to return to the preadmission environment? No * Can the patient safely return to the preadmission environment? Yes * Has this patient been hospitalized within the prior 30 days at any hospital? Yes Coverage Notice Reviewer: [email or web address] Caleb Lindsey Notice Issued Date-Time: 03/14/2020 13:02 Notice Type: IM Discharge Notice Notice Delivered To: Patient Relationship to Patient: Self Paper Mill Supervisor Name: Delivery Method: HAND - Hand Delivered Geetha Days: Prior Verbal Notification: Recipient Understood Notice: Yes Recipient Signature: Yes Med Rec Note Co-signed by Attending: Coverage Notice Comment: Last DP export: 03/15/20 4:34 p Patient Name: TRAM BYERS Page [phone] at 1748 All edits/amendments must be made on the electronic document DICTATION DATE: 03/15/201746 STAFF AIR TACTICAL OFFICER: JERRY 03/15/201746 RPT#: [id number] DC DATE:03/14/20 STATUS: DIS IN [facility] [address] [place] [address] END OF REPORT
== END 2020-03-14 18:04 | disposition home or self-care (01) | DRG 291 ==
LOC: D.ER 18:26 → D.M2 20:58
PROVIDERS: Family Medicine; ADMIT Internal Medicine Nephrology; ATTEND Internal Medicine Nephrology
DX: I11.0 Hypertensive heart disease with heart failure (principal); G93.41 Metabolic encephalopathy; F17.203 Nicotine dependence unspecified, with withdrawal; I50.23 Acute on chronic systolic (congestive) heart failure; D50.9 Iron deficiency anemia, unspecified; E87.6 Hypokalemia; E11.9 Type 2 diabetes mellitus without complications; Z91.14 Patient's other noncompliance with medication regimen

== ENCOUNTER 2020-03-23 16:58 | Inpatient (IN) | payer MEDICARE ==
[~2020-03-23] VITALS: Ht 175.3 cm; Wt 84.5 kg
[2020-03-24 14:01] VITALS: Ht 175.3 cm; Wt 84.5 kg
[2020-03-28 09:44] VITALS: BP 110/80
[2020-03-28] MEDS ORDERED: LASIX40 MG PO (12:31)
[2020-03-28] MEDS ORDERED: K-TAB10 MEQ PO (12:35)
[2020-03-28] MEDS ORDERED: ENTRESTO 24 MG1 EACH PO (13:31)
== END 2020-03-28 16:01 | disposition home or self-care (01) | DRG 291 ==
LOC: D.ER 16:58 → D.M2 18:52
PROVIDERS: ADMIT Family Medicine; ATTEND Family Medicine
DX: I11.0 Hypertensive heart disease with heart failure (principal); G93.41 Metabolic encephalopathy; F17.213 Nicotine dependence, cigarettes, with withdrawal; E11.9 Type 2 diabetes mellitus without complications; I50.23 Acute on chronic systolic (congestive) heart failure; I34.0 Nonrheumatic mitral (valve) insufficiency; F19.10 Other psychoactive substance abuse, uncomplicated; I42.9 Cardiomyopathy, unspecified; E87.6 Hypokalemia; D50.9 Iron deficiency anemia, unspecified; Z91.14 Patient's other noncompliance with medication regimen

== ENCOUNTER 2020-04-24 18:42 | Inpatient (IN) | payer MEDICARE ==
[~2020-04-24] VITALS: Ht 175.3 cm; Wt 86.5 kg
[2020-04-24 19:50] LABS: BASOPHILS 0.4 % (0-2); HEMATOCRIT 34.6 % (42.0-54.0); HEMOGLOBIN 10.6 g/dL (13.5-17.5); IMMATURE GRANULOCYTES 0.2 % (0-5); LYMPHOCYTES 29.8 % (15-50); MCH 21.1 pg (26.0-34.0); MCHC 30.6 g/dL (31.0-37.0); MCV 68.8 fL (80.0-100.0); MONOCYTES 12.5 % (2-11); NEUTROPHILS 56.1 % (40-80); PLATELET COUNT 225 10x3/uL (130-400); RBC 5.03 10x6/uL (4.20-6.10); RDW 22.2 % (11.5-14.5); WBC 5.3 10x3/uL (4.8-10.8)
[2020-04-24 20:03] VITALS: BP 116/82
[2020-04-24 20:08] LABS: INR 1.6 (0.85-1.17); PROTIME 18.8 SECONDS (11.6-15.0)
[2020-04-24 20:09] LABS: APTT 31.6 SECONDS (22.8-39.4)
[2020-04-24 20:20] LABS: ALKALINE PHOSPHATASE 109 U/L (30-120); ALT (SGPT) 17 U/L (10-68); BILIRUBIN - TOTAL 2.56 mg/dL (0.2-1.3); CALC OSMOLALITY 272 mosm/kg (275-300); CALCIUM 8.7 mg/dL (8.5-10.1); CARBON DIOXIDE 26.9 mmol/L (21.0-32.0); CHLORIDE - SERUM 100 mmol/L (98-107); CKMB 1.3 U/L (0.0-3.6); CREATINE KINASE 219 UL (21-232); CREATININE - SERUM 1.4 mg/dL (0.6-1.3); GLUCOSE 123 mg/dL (74-106); MAGNESIUM - SERUM 2.3 mg/dL (1.8-2.4); PRO BNP 6253 pg/mL (0-125); PROTEIN - SERUM 7.2 g/dL (6.4-8.2); SODIUM 135 mmol/L (136-145); TROPONIN-I 0.017 ng/mL (0.000-0.060); UREA NITROGEN 17 mg/dL (7-18); eGFR NON AFRICAN AMERICAN 59 mL/min (90-120)
[2020-04-24 20:22] LABS: POTASSIUM - SERUM 2.6 mmol/L (3.5-5.1)
--- NOTE | 2020-04-24 21:02 | NUR ---
PT AMBULATED TO THE RESTROOM WITH ASSISTANCE
--- NOTE | 2020-04-24 22:00 | NUR ---
ADMIT TO ROOM 2126 FROM ER. ALERT/ORIENTED. ARRIVED WITH IV POTASSIUM RIDER INFUSING TO LEFT A/C. PT IMMEDIATELY C/O BURNING PAIN TO IV SITE. STARTED IV NS TO DILUTE POTASSIUM RIDER AND ALSO SIGNIFICANTLY SLOWED DOWN RIDER. ADMISSION HISTORY AND ASSESSMENT INITIATED. PT PROVIDED WITH SOUP AND CRACKERS AND DRINK DUE TO HIS BEING HUNGRY. PT TEACHING ON ALL URINE MUST BE MEASURED SINCE HE WOULD BE ON A BUMEX DRIP SHORTLY. URINAL PROVIDED. PT UNABLE TO PROVIDE ANY LIST OF HOME MEDS AND STATES HE HAS NOT BEEN TAKING ANYTHING FOR A WHILE.
--- NOTE | 2020-04-25 00:30 | NUR ---
IV BUMEX DRIP WAS FOUND IN ER, NOW DELIVERED TO FLOOR AND IS UP AND INFUSING. PT SAYING NOT ENOUGH IS BEING DONE FOR HIM AND THAT HE HOPES HE DOES NOT DURING THE NIGHT. EXPLAINED PLAN OF CARE AND INTERVENTIONS TO PATIENT. HE JUST MUMBLED UNDER HIS BREATH THAT HE HOPES HE MAKES IT. REMINDED PT THAT HE ALSO NEEDED TO TAKE HIS MEDICATIONS ONCE HE IS DISCHARGED HOME, BECAUSE THAT WILL HELP HIM STAY WELL.
[2020-04-25 00:40] VITALS: BP 119/97; BMI 27.3
--- NOTE | 2020-04-25 03:26 | NUR ---
EYES CLOSED. RESPS EVEN/NONLABORED. IV BUMEX INFUSING. ST 110 PER TELEMETRY. CPOC.
[2020-04-25 04:30] VITALS: BP 106/66
[2020-04-25 04:52] LABS: BASOPHILS 0.2 % (0-2); HEMOGLOBIN 10.1 g/dL (13.5-17.5); IMMATURE GRANULOCYTES 0.2 % (0-5); MCHC 30.6 g/dL (31.0-37.0); MCV 68.8 fL (80.0-100.0); MONOCYTES 12.1 % (2-11); NEUTROPHILS 59.5 % (40-80); PLATELET COUNT 166 10x3/uL (130-400); RDW 22.2 % (11.5-14.5); WBC 4.9 10x3/uL (4.8-10.8)
[2020-04-25 05:13] LABS: ANION GAP 8.7 mmol/L (8-16); BILIRUBIN - TOTAL 2.34 mg/dL (0.2-1.3); CALCIUM 8.2 mg/dL (8.5-10.1); CARBON DIOXIDE 28.3 mmol/L (21.0-32.0); CREATININE - SERUM 1.3 mg/dL (0.6-1.3)
--- NOTE | 2020-04-25 07:00 | NUR ---
RECEIVED REPORT. ASSUMED CARE OF PATIENT. PATIENT RESTING IN BED WITH EYES OPEN. RESP EVEN AND UNLABORED. IV FLUIDS/MEDS INFUSING ORDERED. SR ON TELEMETRY, RATE 96. CALL LIGHT WITHIN REACH. NO DISTRESS. WHITE BOARD UPDATED, BEDSIDE SHIFT REPORT COMPLETED.
--- NOTE | 2020-04-25 07:31 | NUR ---
PACKAGE DELIVERED TO PATIENT THAT WAS BROUGHT TO THE ED FOR PATIENT.
--- NOTE | 2020-04-25 07:32 | NUR ---
PATIENT REFUSING K+ SUPPLEMENT IV AND ORAL. EDUCATED PATIENT ON SUPPLEMENTS AND PATIENT IS BEING NONCOMPLIANT WITH CARES. ASKED PATIENT WHAT CAN WE DO TO HELP YOU IF YOU ARE NOT GOING TO ACCEPT THE CARES THAT WE ARE OFFERING IN [place] TO IMPROVE YOUR OUTCOME. PATIENT STATES HE WILL TAKE THE ORAL SUPPLEMENTS.
[2020-04-25 09:41] VITALS: BP 99/68
--- NOTE | 2020-04-25 10:44 | NUR ---
PATIENT REFUSED SCDS, PITTING EDEMA FROM THIGH TO TOP OF FOOT. PATIENT IS NOT VERY COMPLIANT WITH CARES.
[2020-04-25 12:10] VITALS: Ht 175.3 cm; Wt 86.5 kg
--- NOTE | 2020-04-25 12:30 | NUR ---
RESTING IN BED, DENIES NEEDS. NO DISTRESS.
--- NOTE | 2020-04-25 14:04 | NUR ---
K+ REMAINS LOW, EP ADMINISTERED AT THIS TIME. WILL RECHECK K+ LEVEL AT 1800.
[2020-04-25 16:09] VITALS: BP 92/61
--- NOTE | 2020-04-25 18:17 | NUR ---
WAITING FOR PHARMACY TO VERIFY NEW ORDERS.
--- NOTE | 2020-04-25 18:38 | NUR ---
PATIENT REFUSED NICOTINE PATCH AT THIS TIME.
[2020-04-25 20:32] VITALS: BP 112/32; BP 112/92
--- NOTE | 2020-04-25 23:42 | NUR ---
HAVE BEEN IN PATIENTS ROOM FOR ALMOST AN HOUR ATTEMPTING TO LET THIS NURSE START A NEW IV. HE DECLINED SAYING JUST TO TAKE OUT THE ONE IN THE BEND OF HIS LEFT A/C AND HE WOULD DO WITHOUT. EXPLAINED THE IMPORTANCE OF HIS ROCEPHIN AND THE BUMEX WAS WHAT WAS PULLING OFF HIS EXCESS BODY FLUID. PT REFUSED TO TO FSBS, SAYING HE DID NOT NEED IT. PT VERY NONCOMPLIANT AND DOES NOT FEEL THAT ANY INTERVENTIONS ARE BEING BENEFICIAL TO HIM. ENCOURAGED COMPLIANCE. WAS ABLE TO GET HIS ROCOPHEN INFUSED AND CURRENTLY BUMEX DRIP IS INFUSING, BUT HE IS NOT HAPPY ABOUT IT.
[2020-04-26 04:40] VITALS: BP 102/57
[2020-04-26 06:45] LABS: ALBUMIN 2.6 g/dL (3.4-5.0); ANION GAP 10.4 mmol/L (8-16); BILIRUBIN - TOTAL 1.5 mg/dL (0.2-1.3); CALCIUM 8.4 mg/dL (8.5-10.1); CARBON DIOXIDE 29.7 mmol/L (21.0-32.0); CREATININE - SERUM 1.3 mg/dL (0.6-1.3); HEMATOCRIT 35.4 % (42.0-54.0); HEMOGLOBIN 10.6 g/dL (13.5-17.5); MCHC 29.9 g/dL (31.0-37.0); MCV 70.1 fL (80.0-100.0); PLATELET COUNT 162 10x3/uL (130-400); POTASSIUM - SERUM 3.1 mmol/L (3.5-5.1); PROTEIN - SERUM 6.6 g/dL (6.4-8.2); RBC 5.05 10x6/uL (4.20-6.10); RDW 22.6 % (11.5-14.5)
[2020-04-26 06:46] LABS: MAGNESIUM - SERUM 1.7 mg/dL (1.8-2.4)
--- NOTE | 2020-04-26 07:00 | NUR ---
RECEIVED REPORT. ASSUMED CARE OF PATIENT. BEDSIDE SHIFT REPORT COMPLETE. WHITE BOARD UPDATED. PATIENT LYING IN BED WITH EYES CLOSED. EASILY AROUSED. PATIENT REQUESTING IV TO BE REMOVED, NOC NURSE DENIED REQUEST. NO DISTRESS. SR ON TELEMETRY, RATE 93.
[2020-04-26 07:34] LABS: LYMPHOCYTES 29 % (15-50); MONOCYTES 2 % (2-11); NEUTROPHILS 66 % (40-80); PLATELET ESTIMATE NORMAL; TARGET CELLS 1+
[2020-04-26 07:35] LABS: ANISOCYTOSIS OCC
--- NOTE | 2020-04-26 07:39 | NUR ---
CALLED TO PATIENT ROOM. PATIENT REQUEST IV BE TAKEN OUT. PATIENT HAS TURNED IV BUMEX OFF. PATIENT STATES HE DOES NOT THINK HE NEEDS THE IV BUMEX ANYMORE. PATIENT ALSO ASKED AGAIN TO USE URINAL FOR URINE SPECIMEN. PATIENT ROLLS EYES AT THIS PIE CRUST MIXER. AT THIS TIME, IV BUMEX REMAINS OFF. IV INTACT TO LEFT AC.
--- NOTE | 2020-04-26 08:48 | NUR ---
PATIENT ALLOWED THIS NURSE TO RESTART BUMEX AT THIS TIME.
[2020-04-26 09:01] VITALS: BP 92/63
--- NOTE | 2020-04-26 10:02 | NUR ---
UDS ORDERED BY TWO PROVIDERS. PATIENT WILL NOT URINATE IN THE URINAL TO PROVIDE NURSING WITH A SAMPLE.
--- NOTE | 2020-04-26 11:16 | NUR ---
FSBS 101. NO INSULIN PER SLIDING SCALE.
[2020-04-26 13:28] VITALS: BP 93/65
--- NOTE | 2020-04-26 14:08 | NUR ---
MEDICATED FOR PAIN AT THIS TIME. NO DISTRESS. ABLE TO RECONNECT PATIENT TO [facility] AT THIS TIME.
--- NOTE | 2020-04-26 18:15 | NUR ---
ANSWERED PATIENT CALL LIGHT AND PATIENT HAD IV PUMP TURNED OFF AND STATES HE WAS READY FOR IT TO BE TURNED BACK ON. PATIENT WOULD NOT STATE WHO TURNED THE PUMP OFF. ALL SETTING FOUND TO BE CHANGED IN PUMP. COUNSELED PATIENT AGAIN ABOUT TURNING OFF PUMP AND REMINDED PATIENT THAT REFERRED TO THE BUMEX DRIP HIS LIFELINE, THAT IS THE ONLY THING THAT IS HELPING HIM AND PATIENT CONTINUES TO BE NON COMPLIANT WITH CARES. CALL LIGHT PLACED WITHIN REACH. BUMEX DRIP INFUSING ORDERED AT THIS TIME. NO DISTRESS.
--- NOTE | 2020-04-26 19:45 | NUR ---
REPORT RECIEVED AND INITIAL ROUNDS COMPLETED. CURRENTL BUMEX AT 5ML/HR IS INFUSING TO LEFT A/C AND PT IS ALREADY ASKING NURSE TO "TAKE IT OUT". IV IS GOOD AND INSTRUCTED PT ON THE IMPORTANCE OF THE BUMEX TO PULL OFF EXTRA BODY FLUID. PT TEACHING ON THE NEED FOR ACCURATE OUTPUT AND FOR A NEEDED URINE SPECIMEN. PT JUST STARES BLANKLY AT NURSE. CPOC. CONTINUED TO EDUCATE ON COMPLIANCE.
--- NOTE | 2020-04-26 23:00 | NUR ---
ALL BEDTIME MEDS GIVEN. IV ROCEPHIN HAS INFUSED. PT STILL WANTING BUMEX AND IV "OUT". STILL INSTRUCTING HIM ON IMPORTANCE FOR HIS DIAGNOSIS. CPOC. SR PER TELEMETRY.
--- NOTE | 2020-04-27 05:00 | NUR ---
REFUSED VITAL SIGNS.
--- NOTE | 2020-04-27 05:00 | NUR ---
EMPTIED AMANDA OF 600ML DARK YELLOW URINE. PT CLEAN/DRY. NEPRO @ 40ML/HR VIA FEEDING PUMP TO DOBHOFF TUBE. SECURED TUBING TO NOSE. ASSESSED LEFT BKA, DRIED STUMP INCISIONS OPEN TO AIR WITH A PAD UNDER THE STUMP. PT DOES NOT FOLLOW OR INDICATE ANY COMPREHENSION LEVEL OF WHAT IS BEING SAID TO HIM. GUARD AT BEDSIDE SAID PT HAS NOT SPOKEN THIS SHIFT.
--- NOTE | 2020-04-27 05:36 | NUR ---
PT HAS PULLED OUT HIS PIV TO LEFT A/C AND BUMEX IS INFUSING ONTO THE FLOOR. HE ALSO HAS TAKEN OFF HIS TELEMETRY BECAUSE HE SAID IT "DOESN'T MATTER". DEMANDING TO GO OUTSIDE TO GET FRESH AIR. CURRENTLY IT IS DARK AND THE ONLY DOOR OPEN TO HOSPITAL IS BEING MANNED FOR CHECK INS. PT DECLINED TO HAVE IV RESITED. STATES IT WAS'NT DOING HIM ANY GOOD. REFUSES TO ALLOW TELEMETRY TO BE PLACED BACK ON. PT NONCOMPLIANT IN EVERY ASPECT.
[2020-04-27 08:30] VITALS: BP 141/119
--- NOTE | 2020-04-27 11:22 | CN ---
PATIENT NAME:TRAM BYERS MEDICAL RECORD: [id number] : [birth year] LOCATION:D. D.2126 ADMIT DATE: 04/24/20 ACCOUNT: [id number] CONSULTING PHYSICIAN: NANETTE CRYSTAL MD REFERRING PHYSICIAN: YOLANDA MAHONEY MD DATE OF CONSULTATION: 04/25/2020 HISTORY OF PRESENT ILLNESS: A 44-year-old gentleman with a history of a severe nonischemic cardiomyopathy, multiple admissions for volume overload secondary to noncompliance, some of this related to social issues, admitted with volume overload, typical admission with 3-4 day history of increased shortness of breath and lower extremity edema different times, reports could not find his medications, the appetite medications, is currently responding nicely to Bumex drip. We are asked to see him concerning his cardiovascular status. PAST MEDICAL HISTORY: Includes; 1. History of hypertension. 2. Hyperlipidemia. 3. Cardiomyopathy. ALLERGIES: None known. MEDICATIONS: Per recent discharge, should have been Entresto , carvedilol 3.125 b.i.d., Aldactone 25 every day and digoxin 0.125 every day. SOCIAL HISTORY: Smokes about a pack a day, still continues the methamphetamine use as well as alcohol use. REVIEW OF SYSTEMS: The patient reports easy bruising but reports no swollen glands. The patient reports no fever, no night sweats, no significant weight gain, no significant weight loss. No significant exercise tolerance. The patient reports no dry eyes, no irritation, no vision change. Patient reports no difficulty hearing and no ear pain. Patient reports no frequent nose bleeds or nose and sinus problems. Patient reports on arm pain on exertion. No shortness of breath while lying down. No history of heart murmur. Patient reports no cough, no wheezing or coughing up blood. Patient reports no abdominal pain, no vomiting. Normal appetite. No diarrhea and not vomiting blood. No nausea and no constipation. Patient reports no incontinence. No difficulty urinating. No hematuria. No increased frequency. Patient reports no muscle aches. No weakness, no arthralgias, no back pain. No swelling of the extremities. Patient reports no abnormal mole, no jaundice, no rashes. Reports no loss of consciousness. No weakness and no numbness. No seizures, dizziness, or headaches. The patient reports no depression, no sleep disturbance, feeling safe in a relationship and no alcohol abuse. Patient reports on fatigue. Reports no runny nose or sinus pressure. No itching, no hives, and no frequent sneezing. PHYSICAL EXAMINATION: GENERAL: Pleasant. No acute distress. VITAL SIGNS: Blood pressure 99/68, pulse 90 and regular. HEENT: Normocephalic. NECK: JVD to the angle of the jaw. HEART: Regular. S3 gallop is noted. LUNGS: Diminished breath sounds. ABDOMEN: Soft, nontender. CONSULT REPORT [id number] TRAM BYERS EXTREMITIES: Pulses were 2+, 2+ edema. NEUROLOGIC: Grossly intact. IMPRESSION: Volume overload secondary to noncompliance. Responding nicely to the Bumex drip. Reiterated compliance issues with the patient. We will work with getting medications if needed. Further recommendations based on the above. TRANSINT:[id number] Voice Confirmation ID: [id number] DOCUMENT ID: [id number] NANETTE CRYSTAL MD at 1122 CC: [id number] DICTATION DATE: 04/25/20 1027 MANAGER INVESTMENT BANKING: 04/25/20 1614 ADM IN [place] [id number] [place] [address]
[2020-04-27 12:00] VITALS: BP 91/63
[2020-04-27 14:55] LABS: BASOPHILS 0.4 % (0-2); EOSINOPHILS 1.4 % (0-7); HEMATOCRIT 35.6 % (42.0-54.0); HEMOGLOBIN 10.8 g/dL (13.5-17.5); IMMATURE GRANULOCYTES 0.2 % (0-5); LYMPHOCYTES 24.3 % (15-50); MCH 21.1 pg (26.0-34.0); MCHC 30.3 g/dL (31.0-37.0); MCV 69.4 fL (80.0-100.0); MONOCYTES 12.7 % (2-11); PLATELET COUNT 147 10x3/uL (130-400); RBC 5.13 10x6/uL (4.20-6.10); RDW 22.8 % (11.5-14.5)
[2020-04-27 15:19] LABS: ALBUMIN 2.5 g/dL (3.4-5.0); BILIRUBIN - TOTAL 1.92 mg/dL (0.2-1.3); CALCIUM 8.3 mg/dL (8.5-10.1); CREATININE - SERUM 1.4 mg/dL (0.6-1.3); MAGNESIUM - SERUM 1.9 mg/dL (1.8-2.4); PROTEIN - SERUM 6.3 g/dL (6.4-8.2)
--- NOTE | 2020-04-27 15:46 | NUR ---
ALERT AND ORIENTED X4. UP AMBULATING IN [place]. ENCOURAGE NOT TO LEAVE UNIT. PERSISTANCE TO GO OUTSIDE. ENCOURAGE TO GO BACK TO ROOM. PATIENT THEN LEAVES UNIT.
[2020-04-27 16:50] VITALS: BP 99/69
--- NOTE | 2020-04-27 19:45 | NUR ---
REPORT RECIEVED AND INITIAL ROUNDS COMPLETED. PT COMPLETELY DRESSED AND WANDERING AROUND HIS ROOM. NO IV, NOT FOLLOWING PLAN OF CARE. CAN PROVIDE NO CREDIBLE REASON FOR NOT BEING COOPERATIVE OTHER THAN HE DOESN'T FEEL LIKE IT.
[2020-04-27 20:00] VITALS: BP 103/55
--- NOTE | 2020-04-27 20:54 | NUR ---
DR FLORES SPOKE WITH PATIENT ABOUT HIS NONCOMPLIANCE. PT AGREED TO HAVE IV RESITED. SITED 22G X 1 ATTEMPT TO RFA AND RESTARTED BUMEX AT 5M/HR. PT NOW RESTING IN BED. CPOC.
--- NOTE | 2020-04-28 02:54 | NUR ---
PT RESTING WITH NO DISTRESS. NO TELEMETRY PER PT REFUSAL. NEW IV PATENT AND BUMEX IS INFUSING. PT HAS BEEN VOIDING TO URINAL DIRECTED. WHEN HE UNDERSTOOD WHAT A "CONDOM CATH" WAS, HE SUDDENLY DECIDED THAT HE WOULD VOID TO URINAL , BUT TRUE COMPLIANCE IS QUESTIONABLE. HE HAS ASKED FOR VARIOUS SNACKS AND DRINKS THROUGH THE NIGHT AND ALL HAVE BEEN PROVIDED. CPOC.
[2020-04-28 04:00] VITALS: BP 102/74
[2020-04-28 06:05] LABS: HEMATOCRIT 33.6 % (42.0-54.0); HEMOGLOBIN 10.4 g/dL (13.5-17.5); MCH 21.1 pg (26.0-34.0); MCV 68.3 fL (80.0-100.0); PLATELET COUNT 165 10x3/uL (130-400); RBC 4.92 10x6/uL (4.20-6.10); RDW 22.2 % (11.5-14.5); WBC 4.8 10x3/uL (4.8-10.8)
[2020-04-28 06:22] LABS: ALBUMIN 2.6 g/dL (3.4-5.0); ANION GAP 14.2 mmol/L (8-16); BILIRUBIN - TOTAL 1.47 mg/dL (0.2-1.3); CALCIUM 8.3 mg/dL (8.5-10.1); CARBON DIOXIDE 24.5 mmol/L (21.0-32.0); CREATININE - SERUM 1.5 mg/dL (0.6-1.3); MAGNESIUM - SERUM 1.8 mg/dL (1.8-2.4); POTASSIUM - SERUM 3.7 mmol/L (3.5-5.1); PROTEIN - SERUM 6.4 g/dL (6.4-8.2)
--- NOTE | 2020-04-28 07:20 | NUR ---
RECIEVE REPORT. RESTING IN BED WITH EYES CLOSED. REFUSES TELEMETRY. RT FA BUMEX DRIP INFUSING ORDERED. NO SIGNS OF DISTRESS. CONTINUE PLAN OF CARE AND SAFETY PRECAUTIONS.
[2020-04-28 09:42] VITALS: BP 86/53
[2020-04-28 10:14] LABS: EOSINOPHILS 3 % (0-7); LYMPHOCYTES 29 % (15-50); MONOCYTES 8 % (2-11); NEUTROPHILS 60 % (40-80); PLATELET ESTIMATE NORMAL
[2020-04-28 11:28] LABS: BILIRUBIN NEGATIVE (NEGATIVE); GLUCOSE NEGATIVE (NEGATIVE); KETONE NEGATIVE (NEGATIVE); NITRITE NEGATIVE (NEGATIVE); SPECIFIC GRAVITY 1.005 (1.005-1.020); UROBILINOGEN NORMAL (NORMAL)
[2020-04-28 11:49] LABS: UDS - AMPHET NEGATIVE QUAL (NEGATIVE); UDS - BARB NEGATIVE QUAL (NEGATIVE); UDS - BENZO NEGATIVE QUAL (NEGATIVE); UDS - COCAINE NEGATIVE QUAL (NEGATIVE); UDS - OPIATE NEGATIVE QUAL (NEGATIVE); UDS - PCP NEGATIVE QUAL (NEGATIVE); UDS - THC NEGATIVE QUAL (NEGATIVE)
--- NOTE | 2020-04-28 13:03 | NUR ---
Nutrition Follow-up: Good/fair PO intake. Ate ~75% of breakfast this AM. Diet: Cardiac PO intake: 63% avg x last 4 meals (25-100%) Last recorded BM: 04/27 Labs noted: Glu 132, Ca 8.3, Alb 2.6, POC Glu 249 Meds noted: Protonix, electrolyte protocol -May consider cardiac carb consistent diet 2/2 elevated Glu. -Encourage PO intake and honor food preferences within diet restrictions. -Monitor wt; noted daily wts ordered. -RD following.
--- NOTE | 2020-04-28 16:40 | NUR ---
REFUSE BUMEX DRIP. TURNED OFF PUMP. BUMEX CHANGED TO IV.
[2020-04-28] MEDS ORDERED: OMNICEF300 MG PO (18:36)
[2020-04-28] MEDS ORDERED: BUMEX2 MG PO (18:39)
--- NOTE | 2020-04-28 19:46 | NUR ---
PATIENT RECEIVED D/C INSTRUCTIONS. IV IN RIGHT FOREARM HAS BEEN REMOVED. PATIENT DENIES HAVING ANY QUESTIONS. PATIENT ESCORTED OFF FLOOR VIA WHEELCHAIR BY DOG BOARDER.
== END 2020-04-28 19:46 | disposition home or self-care (01) | DRG 291 ==
LOC: D.ER 18:42 → D.M2 21:01
PROVIDERS: Emergency Medicine; Family Medicine; ADMIT Family Medicine; ATTEND Family Medicine
DX: I11.0 Hypertensive heart disease with heart failure (principal); J18.9 Pneumonia, unspecified organism; J96.01 Acute respiratory failure with hypoxia; F17.203 Nicotine dependence unspecified, with withdrawal; J44.0 Chronic obstructive pulmonary disease with (acute) lower respiratory infection; J44.1 Chronic obstructive pulmonary disease with (acute) exacerbation; D50.9 Iron deficiency anemia, unspecified; E87.6 Hypokalemia; E11.65 Type 2 diabetes mellitus with hyperglycemia; I42.9 Cardiomyopathy, unspecified; F19.10 Other psychoactive substance abuse, uncomplicated; I08.1 Rheumatic disorders of both mitral and tricuspid valves; F31.9 Bipolar disorder, unspecified; I50.43 Acute on chronic combined systolic (congestive) and diastolic (congestive) heart failure; I27.20 Pulmonary hypertension, unspecified

== ENCOUNTER 2020-05-25 18:58 | Inpatient (IN) | payer MEDICARE ==
[~2020-05-25] VITALS: Ht 175.3 cm; Wt 81.6 kg
[~2020-05-25 18:58] MED LIST changes: +BUMEX2 MG PO; +OMNICEF300 MG PO
[2020-05-25 20:08] LABS: BASOPHILS 0.4 % (0-2); EOSINOPHILS 1.1 % (0-7); HEMATOCRIT 33.8 % (42.0-54.0); HEMOGLOBIN 10.5 g/dL (13.5-17.5); IMMATURE GRANULOCYTES 0.2 % (0-5); MCH 21.2 pg (26.0-34.0); MCHC 31.1 g/dL (31.0-37.0); MCV 68.3 fL (80.0-100.0); MONOCYTES 13.5 % (2-11); NEUTROPHILS 61.8 % (40-80); RBC 4.95 10x6/uL (4.20-6.10); RDW 22.6 % (11.5-14.5); WBC 5.4 10x3/uL (4.8-10.8)
[2020-05-25 20:09] LABS: PLATELET COUNT 227 10x3/uL (130-400)
[2020-05-25 20:17] LABS: INR 1.39 (0.85-1.17); PROTIME 16.9 SECONDS (11.6-15.0)
[2020-05-25 20:18] LABS: APTT 35.9 SECONDS (22.8-39.4)
[2020-05-25 20:19] LABS: D-DIMER-QUANTITATIVE 1.74 ug/mLFEU (0.20-0.54)
[2020-05-25 20:30] VITALS: BP 133/92
[2020-05-25 20:33] LABS: ALBUMIN 2.8 g/dL (3.4-5.0); ALKALINE PHOSPHATASE 117 U/L (30-120); ALT (SGPT) 12 U/L (10-68); BILIRUBIN - TOTAL 3.12 mg/dL (0.2-1.3); C-REACTIVE PROTEIN 4.8 mg/dL (0.0-0.9); CALC OSMOLALITY 263 mosm/kg (275-300); CALCIUM 8.5 mg/dL (8.5-10.1); CARBON DIOXIDE 26.4 mmol/L (21.0-32.0); CHLORIDE - SERUM 99 mmol/L (98-107); CREATININE - SERUM 1.1 mg/dL (0.6-1.3); GLUCOSE 105 mg/dL (74-106); LIPASE 56 U/L (73-393); MAGNESIUM - SERUM 1.8 mg/dL (1.8-2.4); PRO BNP 5056 pg/mL (0-125); PROTEIN - SERUM 7.2 g/dL (6.4-8.2); SODIUM 133 mmol/L (136-145); THYROID STIMULATING HORMONE 2.07 uIU/mL (0.36-3.74); TROPONIN-I < 0.017 ng/mL (0.000-0.060); UREA NITROGEN 8 mg/dL (7-18); eGFR NON AFRICAN AMERICAN 78 mL/min (90-120)
[2020-05-25 20:35] LABS: POTASSIUM - SERUM 2.7 mmol/L (3.5-5.1)
[2020-05-25 21:30] VITALS: BP 133/86
--- NOTE | 2020-05-25 21:40 | NUR ---
PATIENT REFUSED LASIX AT THIS TIME
[2020-05-25 22:27] VITALS: BP 142/94
[2020-05-25 23:39] VITALS: BP 111/83
--- NOTE | 2020-05-26 00:24 | NUR ---
RECIEVED TO ROOM 2136 FROM ER VIA STRETCHER. PT A&O. PT SOB, O2 AT 2 LITERS VIA NC. SATS 96%. IV TO RIGHT ARM SL, IV SITE CLEAN AND DRY. PLACED ON TELEMETRY, 102 ST. HISTORY AND MED REC OBTAINED. PT DENIES PAIN OR NEEDS, BED LOW, CL IN REACH.
[2020-05-26 00:35] VITALS: BP 116/71
[2020-05-26] MEDS ORDERED: FUROSEMIDE20 MG PO (00:51)
[2020-05-26 00:57] VITALS: BMI 26.6
--- NOTE | 2020-05-26 01:02 | NUR ---
WARM BLANKET, CHIKEN NOODLE SOUP AND A CUP OF ICE GIVEN AT PT REQUEST.
--- NOTE | 2020-05-26 03:26 | NUR ---
RESTING WITH EYES CLOSED, RESPERATIONS EVEN, NO S/S DISTRESS NOTED.
[2020-05-26 10:32] VITALS: BP 124/72
[2020-05-26 11:26] VITALS: BP 115/69
[2020-05-26 13:46] VITALS: Ht 175.3 cm; Wt 81.6 kg
[2020-05-26 15:10] LABS: BASOPHILS 0.4 % (0-2); EOSINOPHILS 1.6 % (0-7); HEMATOCRIT 34.5 % (42.0-54.0); HEMOGLOBIN 10.6 g/dL (13.5-17.5); IMMATURE GRANULOCYTES 0.2 % (0-5); LYMPHOCYTES 21.9 % (15-50); MCH 21.5 pg (26.0-34.0); MCHC 30.7 g/dL (31.0-37.0); MCV 69.8 fL (80.0-100.0); MONOCYTES 15.4 % (2-11); NEUTROPHILS 60.5 % (40-80); PLATELET COUNT 227 10x3/uL (130-400); RBC 4.94 10x6/uL (4.20-6.10); RDW 22.9 % (11.5-14.5); WBC 5.5 10x3/uL (4.8-10.8)
[2020-05-26 15:14] LABS: BILIRUBIN NEGATIVE (NEGATIVE); GLUCOSE NEGATIVE (NEGATIVE); KETONE NEGATIVE (NEGATIVE); NITRITE NEGATIVE (NEGATIVE); UROBILINOGEN NORMAL (NORMAL)
[2020-05-26 15:20] LABS: UDS - AMPHET NEGATIVE QUAL (NEGATIVE); UDS - BARB NEGATIVE QUAL (NEGATIVE); UDS - BENZO NEGATIVE QUAL (NEGATIVE); UDS - COCAINE NEGATIVE QUAL (NEGATIVE); UDS - OPIATE NEGATIVE QUAL (NEGATIVE); UDS - PCP NEGATIVE QUAL (NEGATIVE); UDS - THC NEGATIVE QUAL (NEGATIVE)
[2020-05-26 15:39] LABS: CALC OSMOLALITY 278 mosm/kg (275-300); CALCIUM 8.4 mg/dL (8.5-10.1); CARBON DIOXIDE 27.2 mmol/L (21.0-32.0); CHLORIDE - SERUM 104 mmol/L (98-107); CREATININE - SERUM 1.1 mg/dL (0.6-1.3); GLUCOSE 126 mg/dL (74-106); SODIUM 140 mmol/L (136-145); UREA NITROGEN 8 mg/dL (7-18); eGFR NON AFRICAN AMERICAN 78 mL/min (90-120)
[2020-05-26 15:41] LABS: POTASSIUM - SERUM 3.3 mmol/L (3.5-5.1)
[2020-05-26 15:50] LABS: ALBUMIN 2.7 g/dL (3.4-5.0); ALKALINE PHOSPHATASE 113 U/L (30-120); BILIRUBIN - TOTAL 1.73 mg/dL (0.2-1.3); PRO BNP 4010 pg/mL (0-125); PROTEIN - SERUM 6.6 g/dL (6.4-8.2)
[2020-05-26 15:51] LABS: ALT (SGPT) 17 U/L (10-68)
[2020-05-26 16:31] VITALS: BP 124/81
--- NOTE | 2020-05-26 19:00 | NUR ---
REPORT RECEIVED, WILL CONTINUE POC. PATIENT IS AAOX4, UP AD ADAN. NO S/S OF DISTRESS OBSERVED, RR EVEN AND UNLABORED ON 2L O2 VIA NC. PATIENT IS BEING MOVED TO ROOM 2103 DUE TO NEGATIVE COVID RESULT. PATIENT DENIES NEEDS AT THIS TIME. CL IN REACH, BED LOCKED AND LOWERED. WILL CTM.
[2020-05-26 20:00] VITALS: BP 115/82
[2020-05-27] VITALS: BP 109/75
[2020-05-27 04:00] VITALS: BP 113/85
--- NOTE | 2020-05-27 04:04 | NUR ---
I have reviewed this patient and I concur with the Shift Assessment completed by the Licensed Practical Nurse today this shift.
[2020-05-27 07:09] LABS: HEMATOCRIT 33.3 % (42.0-54.0); HEMOGLOBIN 10.1 g/dL (13.5-17.5); MCH 20.9 pg (26.0-34.0); MCHC 30.3 g/dL (31.0-37.0); MCV 68.8 fL (80.0-100.0); PLATELET COUNT 217 10x3/uL (130-400); RBC 4.84 10x6/uL (4.20-6.10); RDW 22.7 % (11.5-14.5)
[2020-05-27 07:32] LABS: ALBUMIN 2.7 g/dL (3.4-5.0); ALKALINE PHOSPHATASE 110 U/L (30-120); ALT (SGPT) 16 U/L (10-68); CALC OSMOLALITY 277 mosm/kg (275-300); CALCIUM 8.6 mg/dL (8.5-10.1); CARBON DIOXIDE 28.1 mmol/L (21.0-32.0); CHLORIDE - SERUM 104 mmol/L (98-107); CREATININE - SERUM 1.1 mg/dL (0.6-1.3); GLUCOSE 98 mg/dL (74-106); MAGNESIUM - SERUM 1.9 mg/dL (1.8-2.4); PROTEIN - SERUM 6.8 g/dL (6.4-8.2); SODIUM 140 mmol/L (136-145); UREA NITROGEN 9 mg/dL (7-18); eGFR NON AFRICAN AMERICAN 78 mL/min (90-120)
[2020-05-27 07:39] LABS: POTASSIUM - SERUM 2.8 mmol/L (3.5-5.1)
[2020-05-27 07:56] LABS: LYMPHOCYTES 11 % (15-50); NEUTROPHILS 89 % (40-80); PLATELET ESTIMATE NORMAL
[2020-05-27 08:00] VITALS: BP 143/89
--- NOTE | 2020-05-27 11:18 | NUR ---
PATIENT SEEN OUTSIDE SMOKING AGAIN. PATIENT WAS INSTRUCTED BY PRIMARY NURSE FLETCHER LUNA TO NOT LEAVE THE FLOOR AND DID ANYWAY. ALONZO JOAQUIN RNENERGY PROJECT ENGINEER MADE AWARE OF THIS AND TALKED TO PATIENT ABOUT NOT LEAVING THE FLOOR.
[2020-05-27 15:00] VITALS: BP 123/87
--- NOTE | 2020-05-27 17:40 | NUR ---
PT STATES HE WANTS TO LEAVE AMA BECAUSE HE DIDNT GET HIS PACKAGE THAT SOMEONE BROUGHT HIM YESTERDAY. NOTIFIED AND ANDRE VELAZQUEZ NOTIFIED WELL. PT SIGNED AMA PAPERS. PIV REMOVED,CATH TIP FULLY INTACT. TELEMETRY REMOVED AND RETURNED TO KEY WORKER. ALL VALUBLES REMOVED FROM AT THIS TIME.
--- NOTE | 2020-05-29 09:26 | MORECARE ---
CASE MANAGEMENT DISCHARGE SUMMARY PATIENT: TRAM BYERS UNIT: [id number] ADM DATE: 05/25/20 AGE: 44 : 76 SEX: M ROOM/BED: D.2104 AUTHOR: TAVIA GONZALEZ PHYSICIAN: REFERRING PHYSICIAN: NANETTE FLORES MD DATE OF SERVICE: 05/29/20 Discharge Plan Patient Name: TRAM BYERS Facility: [facility]:[place] : 1975 Planned Disposition: Home Anticipated Discharge Date: 05/27/20 Discharge Date: 05/27/2020 Expected LOS: 2 Initial Reviewer: [email or web address] Initial Review Date: 05/26/2020 Generated: 05/29/20 10:25 am Patient Name: TRAM BYERS Page [phone] at 0926 All edits/amendments must be made on the electronic document DICTATION DATE: 05/29/20924 MACHINERY RIGGER: JERRY 05/29/20924 RPT#: [id number] DC DATE:05/27/20 STATUS: DIS IN [facility] [address] [place] [address] END OF REPORT
== END 2020-05-27 18:09 | disposition left against medical advice (07) | DRG 291 ==
LOC: D.ER 18:58 → D.M2 23:08
PROVIDERS: Family Medicine; ADMIT Family Medicine; ATTEND Family Medicine
DX: I11.0 Hypertensive heart disease with heart failure (principal); J18.9 Pneumonia, unspecified organism; F17.203 Nicotine dependence unspecified, with withdrawal; E87.1 Hypo-osmolality and hyponatremia; J98.11 Atelectasis; R18.8 Other ascites; I50.23 Acute on chronic systolic (congestive) heart failure; I42.9 Cardiomyopathy, unspecified; E11.65 Type 2 diabetes mellitus with hyperglycemia; R00.8 Other abnormalities of heart beat; D50.9 Iron deficiency anemia, unspecified; E87.6 Hypokalemia; Z91.14 Patient's other noncompliance with medication regimen; F19.10 Other psychoactive substance abuse, uncomplicated; F31.9 Bipolar disorder, unspecified

== ENCOUNTER 2020-06-18 19:32 | Inpatient (IN) | payer MEDICARE ==
[~2020-06-18] VITALS: Ht 175.3 cm; Wt 91.6 kg
[~2020-06-18 19:32] MED LIST changes: +FUROSEMIDE20 MG PO
[2020-06-18] MEDS ORDERED: METOLAZONE2.5 MG PO (19:48)
[2020-06-18 20:24] LABS: BASOPHILS 0.8 % (0-2); EOSINOPHILS 1.9 % (0-7); HEMATOCRIT 36.5 % (42.0-54.0); HEMOGLOBIN 11.2 g/dL (13.5-17.5); IMMATURE GRANULOCYTES 0.2 % (0-5); LYMPHOCYTES 21.6 % (15-50); MCH 21.4 pg (26.0-34.0); MCHC 30.7 g/dL (31.0-37.0); MCV 69.7 fL (80.0-100.0); MONOCYTES 14.8 % (2-11); NEUTROPHILS 60.7 % (40-80); RBC 5.24 10x6/uL (4.20-6.10); RDW 22.9 % (11.5-14.5); WBC 5.2 10x3/uL (4.8-10.8)
[2020-06-18 20:28] LABS: PLATELET COUNT 169 10x3/uL (130-400)
[2020-06-18 20:29] LABS: CALC OSMOLALITY 277 mosm/kg (275-300); CALCIUM 8.8 mg/dL (8.5-10.1); CARBON DIOXIDE 30.3 mmol/L (21.0-32.0); CHLORIDE - SERUM 101 mmol/L (98-107); GLUCOSE 102 mg/dL (74-106); POTASSIUM - SERUM 3.4 mmol/L (3.5-5.1); SODIUM 139 mmol/L (136-145); UREA NITROGEN 12 mg/dL (7-18); eGFR NON AFRICAN AMERICAN 87 mL/min (90-120)
[2020-06-18 20:36] LABS: APTT 34.8 SECONDS (22.8-39.4); INR 1.63 (0.85-1.17); PROTIME 19.2 SECONDS (11.6-15.0)
[2020-06-18 20:39] LABS: D-DIMER-QUANTITATIVE 2.47 ug/mLFEU (0.20-0.54)
--- NOTE | 2020-06-18 20:40 | NUR ---
JOAN FROM LAB CALLED ELEVATED D DIMER OF 2.47 AT THIS TIME.EDP NOTIFIED.
[2020-06-18 20:56] LABS: ALBUMIN 3.1 g/dL (3.4-5.0); ALKALINE PHOSPHATASE 137 U/L (30-120); ALT (SGPT) 20 U/L (10-68); BILIRUBIN - TOTAL 3.95 mg/dL (0.2-1.3); C-REACTIVE PROTEIN 3.2 mg/dL (0.0-0.9); CREATINE KINASE 287 UL (21-232); LIPASE 127 U/L (73-393); MAGNESIUM - SERUM 1.9 mg/dL (1.8-2.4); PRO BNP 4122 pg/mL (0-125); PROTEIN - SERUM 7.6 g/dL (6.4-8.2); TROPONIN-I 0.022 ng/mL (0.000-0.060)
[2020-06-18 20:58] LABS: CKMB 1.5 U/L (0.0-3.6)
--- NOTE | 2020-06-18 21:58 | NUR ---
PT LEAVING FOR ORDERED SCAN AT THIS TIME VIA STRETCHER
--- NOTE | 2020-06-18 23:55 | NUR ---
PATIENT TO THE ROOM. RESP DISTRESS NOTED, NASAL CANNULA IN PLACE. RT IN THE ROOM FOR BREATHING TREATMEN.
[2020-06-19 05:58] LABS: ALBUMIN 2.9 g/dL (3.4-5.0); BILIRUBIN - TOTAL 3.59 mg/dL (0.2-1.3); CALCIUM 8.3 mg/dL (8.5-10.1); CARBON DIOXIDE 28.8 mmol/L (21.0-32.0); CREATININE - SERUM 1.2 mg/dL (0.6-1.3); MAGNESIUM - SERUM 1.7 mg/dL (1.8-2.4); PHOSPHOROUS 3.4 mg/dL (2.5-4.9)
[2020-06-19 06:04] LABS: ANION GAP 12.6 mmol/L (8-16); BASOPHILS 0.3 % (0-2); EOSINOPHILS 0.3 % (0-7); HEMATOCRIT 35.4 % (42.0-54.0); HEMOGLOBIN 10.9 g/dL (13.5-17.5); IMMATURE GRANULOCYTES 0.2 % (0-5); MCH 21.2 pg (26.0-34.0); MCHC 30.8 g/dL (31.0-37.0); MCV 68.9 fL (80.0-100.0); MONOCYTES 10.8 % (2-11); NEUTROPHILS 74.4 % (40-80); PLATELET COUNT 168 10x3/uL (130-400); RBC 5.14 10x6/uL (4.20-6.10); RDW 22.9 % (11.5-14.5); WBC 5.8 10x3/uL (4.8-10.8)
[2020-06-19 06:06] LABS: POTASSIUM - SERUM 2.4 mmol/L (3.5-5.1)
[2020-06-19 08:00] VITALS: BP 126/92
[2020-06-19 10:08] VITALS: Ht 175.3 cm; Wt 91.6 kg
[2020-06-19 11:31] LABS: UDS - AMPHET NEGATIVE QUAL (NEGATIVE); UDS - BARB NEGATIVE QUAL (NEGATIVE); UDS - BENZO NEGATIVE QUAL (NEGATIVE); UDS - COCAINE NEGATIVE QUAL (NEGATIVE); UDS - OPIATE NEGATIVE QUAL (NEGATIVE); UDS - PCP NEGATIVE QUAL (NEGATIVE); UDS - THC NEGATIVE QUAL (NEGATIVE)
[2020-06-19 11:47] LABS: BILIRUBIN NEGATIVE (NEGATIVE); KETONE NEGATIVE (NEGATIVE); NITRITE NEGATIVE (NEGATIVE)
[2020-06-19 12:00] VITALS: BP 119/82
--- NOTE | 2020-06-19 13:24 | NUR ---
PATIENT WILL NOT WEAR 02 AMD STOPS BREATHING TREATMENTS EARLY
[2020-06-19 16:00] VITALS: BP 107/65
--- NOTE | 2020-06-19 19:26 | NUR ---
RECIEVED UP IN BED WITH EYES OPENA ND TV ON. ALERT AND ORIETNED X4. UP AD ADAN. IV TO LT FA SL. REFUSES OXYGEN THERAPY. DENIES ANY NEEDS AT THIS TIME.
[2020-06-19 20:00] VITALS: BP 142/50
[2020-06-20] VITALS: BP 109/75
[2020-06-20 04:00] VITALS: BP 95/70
[2020-06-20 06:49] LABS: BASOPHILS 0.4 % (0-2); IMMATURE GRANULOCYTES 0.2 % (0-5); LYMPHOCYTES 22.1 % (15-50); MCH 21.4 pg (26.0-34.0); MCHC 31.3 g/dL (31.0-37.0); MCV 68.4 fL (80.0-100.0); MONOCYTES 13.1 % (2-11); NEUTROPHILS 62.2 % (40-80); RBC 4.68 10x6/uL (4.20-6.10); RDW 22.6 % (11.5-14.5); WBC 5.4 10x3/uL (4.8-10.8)
[2020-06-20 06:57] LABS: PLATELET COUNT 116 10x3/uL (130-400)
[2020-06-20 07:36] LABS: ALBUMIN 2.6 g/dL (3.4-5.0); ALKALINE PHOSPHATASE 111 U/L (30-120); ALT (SGPT) 15 U/L (10-68); BILIRUBIN - TOTAL 2.31 mg/dL (0.2-1.3); CALC OSMOLALITY 279 mosm/kg (275-300); CALCIUM 8.4 mg/dL (8.5-10.1); CARBON DIOXIDE 29.9 mmol/L (21.0-32.0); CHLORIDE - SERUM 101 mmol/L (98-107); CREATININE - SERUM 1.1 mg/dL (0.6-1.3); GLUCOSE 112 mg/dL (74-106); MAGNESIUM - SERUM 1.8 mg/dL (1.8-2.4); PHOSPHOROUS 3.6 mg/dL (2.5-4.9); PROTEIN - SERUM 6.6 g/dL (6.4-8.2); SODIUM 140 mmol/L (136-145); UREA NITROGEN 13 mg/dL (7-18); eGFR NON AFRICAN AMERICAN 78 mL/min (90-120)
[2020-06-20 07:41] LABS: POTASSIUM - SERUM 2.7 mmol/L (3.5-5.1)
--- NOTE | 2020-06-20 07:49 | NUR ---
LAB CALLED WITH CRITICAL POTASSIUM OF 2.7, TOOK ORAL POTASSIUM TO ROOM PER ELECTROLYTE PROTOCOL AND PATIENT REFUSED AND STATED HE WOULD NOT TAKE UNLESS I CALLED THE DR AND GOT HIM A HYDRO. EXPLAINED TO PATIENT THE IMPORTANCE OF REPLACING THE POTASSIUM AND DANGERS OF WHAT COULD HAPPEN IF WE DIDN'T AND HE STILL REFUSED.
--- NOTE | 2020-06-20 08:00 | NUR ---
STARTED POTASSIUM 20 MEQ IV PER PROTOCOL.
--- NOTE | 2020-06-20 08:15 | NUR ---
PATIENT STOPPED POTASSIUM.
--- NOTE | 2020-06-20 08:30 | NUR ---
POTASSIUM RESTARTED WITH NORMAL SALINE AT 100 CCS TO DILUTE. NO COMPLAINTS.
--- NOTE | 2020-06-20 09:00 | NUR ---
REFUSED ALL MORNING MEDICATIONS.
[2020-06-20 09:02] VITALS: BP 130/82
--- NOTE | 2020-06-20 10:10 | NUR ---
PATIENT QUALITY ASSURANCE ASSISTANT LIGHT, ENTERED ROOM AND ASK PATIENT WHAT I COULD HELP HIM WITH AND HE STATED TO GET THE HELL OUT OF HIS ROOM. I STATED HE HAD HIS CALL LIGHT ON AND HE SAID HE ROLLED OVER ON IT AND IT WAS A MISTAKE.
[2020-06-20] MEDS ORDERED: KLOR-CON 1010 MEQ PO (11:15)
[2020-06-20] MEDS ORDERED: LASIX40 MG PO (11:15)
--- NOTE | 2020-06-20 11:32 | NUR ---
REFUSED TO LET NURSE CHECK BLOOD SUGAR
[2020-06-20 12:14] LABS: CALC OSMOLALITY 278 mosm/kg (275-300); CALCIUM 8.4 mg/dL (8.5-10.1); CARBON DIOXIDE 29.7 mmol/L (21.0-32.0); CHLORIDE - SERUM 101 mmol/L (98-107); CREATININE - SERUM 1.1 mg/dL (0.6-1.3); GLUCOSE 118 mg/dL (74-106); SODIUM 139 mmol/L (136-145); UREA NITROGEN 13 mg/dL (7-18); eGFR NON AFRICAN AMERICAN 78 mL/min (90-120)
[2020-06-20 12:22] LABS: POTASSIUM - SERUM 2.8 mmol/L (3.5-5.1)
--- NOTE | 2020-06-20 15:55 | MORECARE ---
CASE MANAGEMENT DISCHARGE SUMMARY PATIENT: TRAM BYERS UNIT: [id number] ADM DATE: 06/18/20 AGE: 44 : 76 SEX: M ROOM/BED: D.2107 AUTHOR: TAVIA GONZALEZ PHYSICIAN: REFERRING PHYSICIAN: JAGJIT PRESTON MD DATE OF SERVICE: 06/20/20 Discharge Plan Patient Name: TRAM BYERS [facility] [facility] 1975 Planned Disposition: Home Anticipated Discharge Date: Discharge Date: Expected LOS: Initial Reviewer: [email or web address] Initial Review Date: 06/19/2020 Generated: 06/20/20 4:54 pm DCPIA - Discharge Planning Initial Assessment Updated by [email or web address]: Scarlet Lyn on 06/20/20 3:53 pm * Is the patient Alert and Oriented? Yes * How many steps to enter\exit or inside your home? 0/0 * PCP [facility] med 2 * Pharmacy [facility] * Preadmission Environment Home Alone * ADLs Independent * Equipment None * Community resources currently utilized None * Additional services required to return to the preadmission environment? Yes * Can the patient safely return to the preadmission environment? Yes * Has this patient been hospitalized within the prior 30 days at any hospital? Yes Patient Name: TRAM BYERS Page [phone] at 1555 All edits/amendments must be made on the electronic document DICTATION DATE: 06/20/20 155 NEON GLASS BENDER: JERRY 06/20/20 1554 RPT#: [id number] DC DATE: STATUS: ADM IN [facility] [address] [place] [address] END OF REPORT
--- NOTE | 2020-06-20 16:02 | MORECARE ---
CASE MANAGEMENT DISCHARGE SUMMARY PATIENT: TRAM BYERS UNIT: [id number] ADM DATE: 06/18/20 AGE: 44 : 77 SEX: M ROOM/BED: D.1732 AUTHOR: LISA,DOC PHYSICIAN: REFERRING PHYSICIAN: JAGJIT PRESTON MD DATE OF SERVICE: 06/20/20 Discharge Plan Patient Name: TRAM BYERS Facility: [facility]:[place] : 1975 Planned Disposition: Home Anticipated Discharge Date: Discharge Date: Expected LOS: Initial Reviewer: [email or web address] Initial Review Date: 06/19/2020 Generated: 06/20/20 5:02 pm Comments DCP- Discharge Planning Updated by [email or web address]: Scarlet Lyn on 06/20/20 3:[address] Patient Name: TRAM BYERS Admission Status: ER Accout number: [id number] Admission Date: 06-18-2020 : 1975 Admission Diagnosis: Attending: JAGJIT PRESTON Current LOS: 2 Anticipated DC Date: Planned Disposition: Home Primary Insurance: MEDICARE A & B Discharge Planning Comments: CM met with patient to complete initial dc planning assessment. CM educated patient on the CM role and verbal consent given by patient to complete assessment. CM verified patient's address, phone number, and emergency contact phone numbers. Patient lives at home alone and is independent. At discharge patient plans to return home and feels this is a safe discharge. CM discussed availability of home health, rehab services, and medical equipment. Patient states he had a home health caregiver but fired them because they came too early for him. Pt has been on continuous oxygen and may require home and portable oxygen. Pt states he has had oxygen in the past but they never brought it out to him. Patient denies other known discharge needs at this time. Transportation provider at discharge will be his brother. CM will continue to follow and will assist as needed with dc plans/needs. A walk test was performed for oxygen needs. The patient was 86% on room air. Oxygen was applied at 2 liters and the patient recovered to 93%. HENRY choice signed for [facility]. CM called [facility] and updated condition. A tank was delivered and is at bedside. CM will fax oxygen order and clinicals. DC IMM delivered, explained, signed by the patient, and placed in chart. Signed form also left with the patient. CM will continue assisting in DC planning. Franchise Business Consultant: Scarlet Lyn DCPIA - Discharge Planning Initial Assessment Updated by [email or web address]: Scarlet Lyn on 06/20/20 3:53 pm * Is the patient Alert and Oriented? Yes * How many steps to enter\exit or inside your home? 0/0 * PCP [facility] med 2 * Pharmacy [facility] * Preadmission Environment Home Alone * ADLs Independent * Equipment None * Community resources currently utilized None * Additional services required to return to the preadmission environment? Yes * Can the patient safely return to the preadmission environment? Yes * Has this patient been hospitalized within the prior 30 days at any hospital? Yes Last DP export: 06/20/20 2:55 p Patient Name: TRAM BYERS Page [phone] at 1602 All edits/amendments must be made on the electronic document DICTATION DATE: 06/20/20 160 PICK UP ATTENDANT: JERRY 06/20/20 1602 RPT#: [id number] DC DATE: STATUS: ADM IN [facility] [address] [place] [address] END OF REPORT
--- NOTE | 2020-06-20 16:10 | NUR ---
PATIENT HAD CALL LIGHT ON, UPON ENTERING ROOM AND ASKING IF I COULD HELP HIM, STATED HE DIDN'T WANT ANYTHING FROM ME. I TOLD HIM HIS CALL LIGHT WAS ON AND COULD I DO ANYTHING FOR HIM AND HE SAID A GLASS OF ICE. TOOK ICE TO HIM AND WHEN ENTERING ROOM THEN HE SENT ME TO GET HIM A COKE. PATIENT HAS BEEN VERY ARGUMENTATIVE TOTAY, REFUSING MEDICATIONS, ETC.
--- NOTE | 2020-06-20 16:28 | MORECARE ---
CASE MANAGEMENT DISCHARGE SUMMARY PATIENT: TRAM BYERS UNIT: [id number] ADM DATE: 06/18/20 AGE: 44 : 77 SEX: M ROOM/BED: D.2107 AUTHOR: LISA,DOC PHYSICIAN: REFERRING PHYSICIAN: JAGJIT PRESTON MD DATE OF SERVICE: 06/20/20 Discharge Plan Patient Name: TRAM BYERS Facility: [facility]:[place] : 1975 Planned Disposition: Home Anticipated Discharge Date: Discharge Date: Expected LOS: Initial Reviewer: [email or web address] Initial Review Date: 06/19/2020 Generated: 06/20/20 5:28 pm Comments DCP- Discharge Planning Updated by [email or web address]: Scarlet Lyn on 06/20/20 3:[address] Patient Name: TRAM BYERS Admission Status: ER Accout number: [id number] Admission Date: 06-18-2020 : 1975 Admission Diagnosis: Attending: JAGJIT PRESTON Current LOS: 2 Anticipated DC Date: Planned Disposition: Home Primary Insurance: MEDICARE A & B Discharge Planning Comments: CM met with patient to complete initial dc planning assessment. CM educated patient on the CM role and verbal consent given by patient to complete assessment. CM verified patient's address, phone number, and emergency contact phone numbers. Patient lives at home alone and is independent. He states he lives at [facility] the address is [address] [place] [address] 18. At discharge patient plans to return home and feels this is a safe discharge. CM discussed availability of home health, rehab services, and medical equipment. Patient states he had a staff home therapy rn but fired them because they came too early for him. Pt has been on continuous oxygen and may require home and portable oxygen. Pt states he has had oxygen in the past but they never brought it out to him. Patient denies other known discharge needs at this time. Transportation provider at discharge will be his brother. CM will continue to follow and will assist as needed with dc plans/needs. A walk test was performed for oxygen needs. The patient was 86% on room air. Oxygen was applied at 2 liters and the patient recovered to 93%. HENRY choice signed for [facility]. CM called [facility] and updated condition. A tank was delivered and is at bedside. CM will fax oxygen order and clinicals. DC IMM delivered, explained, signed by the patient, and placed in chart. Signed form also left with the patient. CM will continue assisting in DC planning. Preliminary School Psychologist: Scarlet Lyn DCPIA - Discharge Planning Initial Assessment Updated by [email or web address]: Scarlet Lyn on 06/20/20 3:53 pm * Is the patient Alert and Oriented? Yes * How many steps to enter\exit or inside your home? 0/0 * PCP [facility] med 2 * Pharmacy [facility] * Preadmission Environment Home Alone * ADLs Independent * Equipment None * Community resources currently utilized None * Additional services required to return to the preadmission environment? Yes * Can the patient safely return to the preadmission environment? Yes * Has this patient been hospitalized within the prior 30 days at any hospital? Yes External Providers External Provider: [facility] Next Contact Date: Service Request Date: Service Type: Resolution: Reviewer: Comments: Last DP export: 06/20/20 3:02 p Patient Name: TRAM BYERS Page [phone] at 1628 All edits/amendments must be made on the electronic document DICTATION DATE: 06/20/201627 HEATER FURNACE: JERRY 06/20/201627 RPT#: [id number] DC DATE: STATUS: ADM IN [facility] [address] [place] [address] END OF REPORT
--- NOTE | 2020-06-20 17:26 | NUR ---
PATIENT MEAT PROCESSING CENTER MANAGER LIGHT AND REQUESTING TO GO OUTSIDE AND BE WHEELED AROUND IN WHEELCHAIR, EXPLAINED TO PATIENT I COULD NOT DO THAT TO WHICH HE ASK FOR ANOTHER NURSE. I EXPLAINED TO HIM THAT I WOULD GET HIM ANY NURSE HE WANTED BUT WE COULD NOT TAKE HIM OUTSIDE AND WHEEL HIM AROUND IN A WHEELCHAIR.
[2020-06-20 20:00] VITALS: BP 110/86
--- NOTE | 2020-06-20 22:50 | NUR ---
INITIAL ROUNDSCOMPLETED AT 1920HRS. PTRETING WITH EYES CLOSED. RESP EVEN AND REGULAR. ASSESSMENT COMPLETED AT [address] PER CM HR 101. ALERT AND ORIENTED TO PERSON,PLACE AND TIME. DIAZ. IV TO LFA SL. LUNGS DIMINISHED IN BASES BILAT. K+ 2.8. PT INITALLY REFUSED KCL BUT INFORMED PT HE COULD GO HOME IN AM IF K+ 3.0 OR GREATER. ALSO INFORMED DANGERS OF HAVING LOW K+. PT TOOK KCL CRUSHED IN APPLE SAUCE. TYLENOL 500MG PO GIVEN FOR C/O GENERALIZED DISCOMFORT. PT REFUSED FSBS AND PM MEDS. PT REFUSED TELEMETRY AT 2230 HRS. CM RETURNED TO BREAKER TABLE WORKER. REFUSES 2400 VS. WATCHING TV AT THIS TIME. NO DISTRESS NOTED. CALL LIGHT WITHIN REACH.
--- NOTE | 2020-06-20 23:26 | NUR ---
PT RSTING WITH EYES CLOSED. RESP EVEN AND REGULAR. SR UP X1, CALL LIGHT WITHIN REACH.
--- NOTE | 2020-06-21 02:09 | NUR ---
KCL 20MEQ PO GIVEN CRUSHED IN APPLESAUCE.
[2020-06-21 04:00] VITALS: BP 118/85
--- NOTE | 2020-06-21 04:07 | NUR ---
PT RESTING WITH EYES CLOSED. RESP EVEN AND REGULAR. SR UP X1,CALL LIGHT WITHIN REACH.
[2020-06-21 06:03] LABS: BASOPHILS 0.2 % (0-2); EOSINOPHILS 1.3 % (0-7); HEMATOCRIT 32.6 % (42.0-54.0); HEMOGLOBIN 10.1 g/dL (13.5-17.5); IMMATURE GRANULOCYTES 0.2 % (0-5); LYMPHOCYTES 21.9 % (15-50); MCH 21.3 pg (26.0-34.0); MCV 68.6 fL (80.0-100.0); MONOCYTES 14.4 % (2-11); RBC 4.75 10x6/uL (4.20-6.10); RDW 22.6 % (11.5-14.5); WBC 5.2 10x3/uL (4.8-10.8)
[2020-06-21 06:09] LABS: PLATELET COUNT 148 10x3/uL (130-400)
--- NOTE | 2020-06-21 06:13 | NUR ---
VSS THIS AM. RESTED WELL DURING SHIFT. CONTINUES TO REFUSE MEDS. BRI CONTINUE TO MONITOR.
[2020-06-21 06:24] LABS: ALBUMIN 2.8 g/dL (3.4-5.0); ALKALINE PHOSPHATASE 108 U/L (30-120); ALT (SGPT) 17 U/L (10-68); BILIRUBIN - TOTAL 2.81 mg/dL (0.2-1.3); CALC OSMOLALITY 273 mosm/kg (275-300); CALCIUM 8.6 mg/dL (8.5-10.1); CARBON DIOXIDE 28.2 mmol/L (21.0-32.0); CHLORIDE - SERUM 101 mmol/L (98-107); GLUCOSE 107 mg/dL (74-106); MAGNESIUM - SERUM 1.7 mg/dL (1.8-2.4); PHOSPHOROUS 3.3 mg/dL (2.5-4.9); POTASSIUM - SERUM 3.2 mmol/L (3.5-5.1); PROTEIN - SERUM 6.9 g/dL (6.4-8.2); SODIUM 137 mmol/L (136-145); UREA NITROGEN 13 mg/dL (7-18); eGFR NON AFRICAN AMERICAN 87 mL/min (90-120)
--- NOTE | 2020-06-21 07:20 | NUR ---
PT IN BED, HAS REFUSED FINGER STICKS PER CONCRETE PUDDLER NURSE AND REFUSED HIS MEDS. PT SAYS HE WANTS TO GO HOME, PENDING POTASSIUM RESULTS. PERSONAL ITEMS AND CALL LIGHT WITHIN REACH.
[2020-06-21 08:00] VITALS: BP 135/100
[2020-06-21] MEDS ORDERED: COREG 3.1253.125 MG PO (08:47)
--- NOTE | 2020-06-21 08:48 | NUR ---
REVIEWED PT'S MEDICATION CLAIM HISTORY. HAD BEEN RX'S CARVEDILOL PER DR NIETO. PT STATES HE HAS BEEN TAKING. DISCUSSED WITH DR CRYSTAL. WILL CONTINUE AT DISCHARGE.
--- NOTE | 2020-06-21 09:00 | NUR ---
PT EDUCATED TO TAKE HIS MEDS, FINALLYT AGREED.
--- NOTE | 2020-06-21 11:52 | NUR ---
PT TAKEN BY WHEELCHAIR TO RIDE HOME WITH FRIEND. PT HAS PERSONAL ITEMS AND HOME O2.
--- NOTE | 2020-06-22 08:06 | MORECARE ---
CASE MANAGEMENT DISCHARGE SUMMARY PATIENT: TRAM BYERS UNIT: [id number] ADM DATE: 06/18/20 AGE: 44 : 77 SEX: M ROOM/BED: D.2106 AUTHOR: LISA,DOC PHYSICIAN: REFERRING PHYSICIAN: JAGJIT PRESTON MD DATE OF SERVICE: 06/22/20 Discharge Plan Patient Name: TRAM BYERS Facility: [facility]:[place] : 1975 Planned Disposition: Home Anticipated Discharge Date: Discharge Date: 06/21/2020 Expected LOS: Initial Reviewer: [email or web address] Initial Review Date: 06/19/2020 Generated: 06/22/20 9:06 am Comments DCP- Discharge Planning Updated by [email or web address]: Scarlet Lyn on 06/20/20 3:[address] Patient Name: TRAM BYERS Admission Status: ER Accout number: [id number] Admission Date: 06-18-2020 : 1975 Admission Diagnosis: Attending: JAGJIT PRESTON Current LOS: 2 Anticipated DC Date: Planned Disposition: Home Primary Insurance: MEDICARE A & B Discharge Planning Comments: CM met with patient to complete initial dc planning assessment. CM educated patient on the CM role and verbal consent given by patient to complete assessment. CM verified patient's address, phone number, and emergency contact phone numbers. Patient lives at home alone and is independent. He states he lives at [facility] the address is [address] [place] [address] room 18. At discharge patient plans to return home and feels this is a safe discharge. CM discussed availability of home health, rehab services, and medical equipment. Patient states he had a group home counselor but fired them because they came too early for him. Pt has been on continuous oxygen and may require home and portable oxygen. Pt states he has had oxygen in the past but they never brought it out to him. Patient denies other known discharge needs at this time. Transportation provider at discharge will be his brother. CM will continue to follow and will assist as needed with dc plans/needs. A walk test was performed for oxygen needs. The patient was 86% on room air. Oxygen was applied at 2 liters and the patient recovered to 93%. HENRY choice signed for [facility]. CM called [facility] and updated condition. A tank was delivered and is at bedside. CM will fax oxygen order and clinicals. DC IMM delivered, explained, signed by the patient, and placed in chart. Signed form also left with the patient. CM will continue assisting in DC planning. Divorce Mediator: Scarlet Lyn DCPIA - Discharge Planning Initial Assessment Updated by [email or web address]: Scarlet Lyn on 06/20/20 3:53 pm * Is the patient Alert and Oriented? Yes * How many steps to enter\exit or inside your home? 0/0 * PCP [facility] med 2 * Pharmacy [facility] * Preadmission Environment Home Alone * ADLs Independent * Equipment None * Community resources currently utilized None * Additional services required to return to the preadmission environment? Yes * Can the patient safely return to the preadmission environment? Yes * Has this patient been hospitalized within the prior 30 days at any hospital? Yes Coverage Notice Reviewer: [email or web address] Lyn Notice Issued Date-Time: 06/20/2020 11:50 Notice Type: IM Discharge Notice Notice Delivered To: Patient Relationship to Patient: Space Scheduler Name: Delivery Method: HAND - Hand Delivered Geetha Days: Prior Verbal Notification: Recipient Understood Notice: Yes Recipient Signature: Yes Med Rec Note Co-signed by Attending: Coverage Notice Comment: dc imm Reviewer: [email or web address] Lyn Notice Issued Date-Time: 06/20/2020 11:50 Notice Type: Patient Choice Letter Notice Delivered To: Patient Relationship to Patient: Space Scheduler Name: Delivery Method: HAND - Hand Delivered Geetha Days: Prior Verbal Notification: Recipient Understood Notice: Yes Recipient Signature: Yes Med Rec Note Co-signed by Attending: Coverage Notice Comment: [facility] for home and portable oxygen Last DP export: 06/20/20 3:28 p Patient Name: TRAM BYERS Page [phone] at 0806 All edits/amendments must be made on the electronic document DICTATION DATE: 06/22/20 08 SOLE LEVELING MACHINE OPERATOR: JERRY 06/22/20 08 RPT#: [id number] DC DATE:06/21/20 STATUS: DIS IN [address] [address] END OF REPORT
== END 2020-06-21 11:55 | disposition home or self-care (01) | DRG 292 ==
LOC: D.ER 19:32 → D.M2 22:58
PROVIDERS: Family Medicine; ADMIT Family Medicine; ATTEND Family Medicine
DX: I11.0 Hypertensive heart disease with heart failure (principal); E72.20 Disorder of urea cycle metabolism, unspecified; I50.43 Acute on chronic combined systolic (congestive) and diastolic (congestive) heart failure; E11.9 Type 2 diabetes mellitus without complications; I42.9 Cardiomyopathy, unspecified; E80.6 Other disorders of bilirubin metabolism; D50.9 Iron deficiency anemia, unspecified

== ENCOUNTER 2020-07-28 12:00 | Inpatient (IN) | payer MEDICARE ==
[~2020-07-28] VITALS: Ht 175.3 cm; Wt 99.8 kg
[~2020-07-28 12:00] MED LIST changes: +KLOR-CON 1010 MEQ PO; +METOLAZONE2.5 MG PO
[2020-07-28 13:10] LABS: BASOPHILS 0.1 % (0-2); EOSINOPHILS 0 % (0-7); HEMATOCRIT 32.9 % (42.0-54.0); HEMOGLOBIN 10.6 g/dL (13.5-17.5); IMMATURE GRANULOCYTES 0.3 % (0-5); LYMPHOCYTES 8.9 % (15-50); MCHC 32.2 g/dL (31.0-37.0); MCV 68.4 fL (80.0-100.0); MONOCYTES 11.6 % (2-11); NEUTROPHILS 79.1 % (40-80); PLATELET COUNT 160 10x3/uL (130-400); RBC 4.81 10x6/uL (4.20-6.10); RDW 22.3 % (11.5-14.5); WBC 8.6 10x3/uL (4.8-10.8)
[2020-07-28 13:20] LABS: APTT 33.5 SECONDS (22.8-39.4); INR 1.81 (0.85-1.17); PROTIME 20.7 SECONDS (11.6-15.0)
[2020-07-28 13:38] LABS: ALBUMIN 2.8 g/dL (3.4-5.0); ALKALINE PHOSPHATASE 117 U/L (30-120); ALT (SGPT) 18 U/L (10-68); CALC OSMOLALITY 271 mosm/kg (275-300); CALCIUM 8.5 mg/dL (8.5-10.1); CARBON DIOXIDE 29.4 mmol/L (21.0-32.0); CHLORIDE - SERUM 96 mmol/L (98-107); CKMB 2.8 U/L (0.0-3.6); CREATINE KINASE 418 UL (21-232); CREATININE - SERUM 1.6 mg/dL (0.6-1.3); GLUCOSE 108 mg/dL (74-106); MAGNESIUM - SERUM 1.8 mg/dL (1.8-2.4); PROTEIN - SERUM 7.3 g/dL (6.4-8.2); SODIUM 134 mmol/L (136-145); THYROID STIMULATING HORMONE 3.18 uIU/mL (0.36-3.74); TROPONIN-I 0.026 ng/mL (0.000-0.060); UREA NITROGEN 21 mg/dL (7-18); eGFR NON AFRICAN AMERICAN 50 mL/min (90-120)
[2020-07-28 13:59] LABS: POTASSIUM - SERUM 2.8 mmol/L (3.5-5.1)
[2020-07-28 14:32] LABS: BILIRUBIN NEGATIVE (NEGATIVE); KETONE NEGATIVE (NEGATIVE); NITRITE NEGATIVE (NEGATIVE); UROBILINOGEN 4 mg/dL (< 2)
[2020-07-28 14:33] LABS: WHITE CELLS - URINE 0-5 HPF (0-1)
[2020-07-28 14:34] LABS: BACTERIA FEW HPF (NONE SEEN)
[2020-07-28 14:45] LABS: UDS - AMPHET POSITIVE QUAL (NEGATIVE); UDS - BARB NEGATIVE QUAL (NEGATIVE); UDS - BENZO NEGATIVE QUAL (NEGATIVE); UDS - COCAINE NEGATIVE QUAL (NEGATIVE); UDS - OPIATE NEGATIVE QUAL (NEGATIVE); UDS - PCP NEGATIVE QUAL (NEGATIVE); UDS - THC NEGATIVE QUAL (NEGATIVE)
[2020-07-28 15:55] VITALS: BP 123/90
[2020-07-28 18:00] VITALS: BP 117/83
[2020-07-28 19:00] VITALS: BP 122/83
--- NOTE | 2020-07-28 19:38 | NUR ---
COVID SWAB TO LAB PER PROTOCOL FOR ADMIT
[2020-07-28 19:39] VITALS: BP 97/76
--- NOTE | 2020-07-28 21:00 | NUR ---
recieved pt per stretcher from er.pt with a dx of hypokalemia and altered mental status.pt is alert.resp are even et unlabored.pt with some diminished breath sounds.denies any coughing.heartrate is regular.IV to left forearm flushed.IV to right ac flushed.pt with good appetite.pt is poor historian.callbell in reach. siderails up x2.will continue to monitor.
[2020-07-28 21:33] VITALS: BP 111/82
[2020-07-29] VITALS: BP 112/79
--- NOTE | 2020-07-29 | NUR ---
PT WITH SOME SHORTNESS OF BREATH. RESP NOTIFIED. 02 STARTED AT 2L/M PER NASAL CANNULA.PT HAVING SOME SLEEP APNEA.WILL CONTINUE TO MONITOR.
[2020-07-29 00:08] LABS: CKMB 3.3 U/L (0.0-3.6); TROPONIN-I 0.033 ng/mL (0.000-0.060)
[2020-07-29 00:09] LABS: CREATINE KINASE 554 UL (21-232)
--- NOTE | 2020-07-29 02:00 | NUR ---
PT LAYING IN BED. PT WITH FREQUENT NONPRODUCTIVE COUGH.PT NOT WEARING 02.AMANDA IS PATENT WITH DARK COLORED URINE.WILL CONTINUE TO MONITOR.
[2020-07-29 04:00] VITALS: BP 112/66
[2020-07-29 06:20] LABS: BASOPHILS 0.1 % (0-2); EOSINOPHILS 0.4 % (0-7); HEMOGLOBIN 11.2 g/dL (13.5-17.5); IMMATURE GRANULOCYTES 0.4 % (0-5); MCV 68.9 fL (80.0-100.0); MONOCYTES 11.6 % (2-11); NEUTROPHILS 76.5 % (40-80); PLATELET COUNT 167 10x3/uL (130-400); RBC 5.08 10x6/uL (4.20-6.10); RDW 22.5 % (11.5-14.5); WBC 7.5 10x3/uL (4.8-10.8)
[2020-07-29 07:42] VITALS: BP 112/86
[2020-07-29 08:11] LABS: ALBUMIN 2.6 g/dL (3.4-5.0); ALKALINE PHOSPHATASE 113 U/L (30-120); ALT (SGPT) 22 U/L (10-68); BILIRUBIN - TOTAL 5.61 mg/dL (0.2-1.3); CALC OSMOLALITY 270 mosm/kg (275-300); CALCIUM 8.6 mg/dL (8.5-10.1); CARBON DIOXIDE 29.5 mmol/L (21.0-32.0); CHLORIDE - SERUM 94 mmol/L (98-107); CKMB 4.3 U/L (0.0-3.6); CREATININE - SERUM 1.5 mg/dL (0.6-1.3); GLUCOSE 111 mg/dL (74-106); MAGNESIUM - SERUM 1.9 mg/dL (1.8-2.4); PROTEIN - SERUM 6.8 g/dL (6.4-8.2); SODIUM 133 mmol/L (136-145); TROPONIN-I < 0.017 ng/mL (0.000-0.060); UREA NITROGEN 24 mg/dL (7-18); eGFR NON AFRICAN AMERICAN 54 mL/min (90-120)
[2020-07-29 08:12] LABS: CREATINE KINASE 329 UL (21-232); POTASSIUM - SERUM 3.4 mmol/L (3.5-5.1)
[2020-07-29 13:54] VITALS: Ht 175.3 cm; Wt 99.8 kg
[2020-07-29 14:03] LABS: CKMB 4.2 U/L (0.0-3.6); CREATINE KINASE 321 UL (21-232); TROPONIN-I 0.023 ng/mL (0.000-0.060)
--- NOTE | 2020-07-29 14:04 | NUR ---
030 RADHA VASQUEZ, SPEECH THERAPIST AT BEDSIDE PERFORMING A BEDSWIDE SWALLOW STUDY
--- NOTE | 2020-07-29 14:04 | NUR ---
0700 BEDSIDE REPORT RECEIVED ASSESSMENT COMPLETE
--- NOTE | 2020-07-29 14:07 | NUR ---
1130 APAP GIVEN PER PT REQUEST FOR PAIN
[2020-07-29 14:21] VITALS: BP 113/76
--- NOTE | 2020-07-29 14:32 | NUR ---
1315 ASSISTED ON BEDPAN LARGE BM NOTED
--- NOTE | 2020-07-29 17:22 | NUR ---
1717 CBS 33 REPEAT CBS 31 DEXTROSE 50% 25ML GIVEN
--- NOTE | 2020-07-29 17:23 | NUR ---
1717 REPEAT GLLUCOSE AFTER 1/2 AMP DEXTROSE 50% ID 110 ORDERED STAT LAB FOR GLUCOSE WJEM SUGAR WAS 33 PT WAS ABLE TO SAY HIS ARVIN AND FOLLOW INSTRUCTIONS
--- NOTE | 2020-07-29 20:47 | NUR ---
BLOOD SUGAR 169. WANTS PAPERWORK SO HE CAN LEAVE AMA. SHOE REPAIRER APPRENTICE AWARE. WILL NOTIFY
--- NOTE | 2020-07-29 21:22 | NUR ---
LEFT AMA WITH BROTHER TAMMI. EXPLAINED RISK AND BENIFITS TO HIM.IV'S D/C'D AND AMANDA CATH D/C'D. JET HANDLER REMOVED. AMA PAPER SIGNED BY PT. BROTHER STATED " HE HAS SCHIZOPHRENIA AND STOPPED TAKING HIS MEDICATION 3 YRS AGO. HE THINKS YA ARE TRYING TO KILL HIME". THIS NURSE VOICED UNDERSTANDING. LEFT UNIT IN W/C PROPELLED BY HIS BROTHER.
== END 2020-07-29 21:25 | disposition left against medical advice (07) | DRG 70 ==
LOC: D.ER 12:00 → D.M2 16:45
PROVIDERS: Emergency Medicine; ADMIT Family Medicine; ATTEND Family Medicine
DX: G93.41 Metabolic encephalopathy (principal); I50.43 Acute on chronic combined systolic (congestive) and diastolic (congestive) heart failure; N17.9 Acute kidney failure, unspecified; F17.203 Nicotine dependence unspecified, with withdrawal; I42.9 Cardiomyopathy, unspecified; I25.10 Atherosclerotic heart disease of native coronary artery without angina pectoris; I11.0 Hypertensive heart disease with heart failure; D50.9 Iron deficiency anemia, unspecified; F15.10 Other stimulant abuse, uncomplicated; E87.6 Hypokalemia; E11.65 Type 2 diabetes mellitus with hyperglycemia; R00.0 Tachycardia, unspecified

== ENCOUNTER 2021-01-16 03:02 | Inpatient (IN) | payer MEDICARE ==
[~2021-01-16] VITALS: Ht 177.8 cm; Wt 88.5 kg
--- NOTE | ~2021-01-16 | EC ---
PATIENT:TRAM BYERS DATE OF SERVICE: 01/16/21 SEX: M MEDICAL RECORD: [id number] DATE OF : 77 LOCATION:[facility] AGE OF PATIENT: 45 ADMISSION DATE: 01/16/21 REFERRING PHYSICIAN: INTERPRETING PHYSICIAN: LE MACHADO MD ECHOCARDIOGRAM REPORT ECHO CHARGES 5 ECHO LIMITED Date: 01/17/21 CLINICAL DIAGNOSIS: PERICARDIAL EFFUSION ECHOCARDIOGRAPHIC MEASUREMENTS (adult normal given) AC root (d.<3.7cm) 0 cm LV Septum d (<1.2 cm> 0 cm Valve Excursion 0 cm LV Septum (systole) 0 cm Left Atria (s.<4.0cm> 0 cm LVPW d(<1.2cm) 0 cm RV (d.<2.3cm) 0 cm LVPW (sytole) 0 cm LV diastole(<5.6CM) 0 cm MV E-F(>70mm/sec) 0 cm LV systole 0 cm LVOT Diameter 0 cm MV exc.(>10mm) 0 cm Est.ejection fraction (50-75%) 0 % DOPPLER: LVIT cm/sec A 0 cm/sec E 0 cm/sec LA cm/sec RVSP 0 mmHg LVOT 0 cm/sec AOP1/2T 0 m/s Asc. Ao 0 cm/sec RVOT 0 cm/sec RA 0 cm/sec PA 0 cm/sec AV Gradient Peak 0 mmHg AV Mean 0 mmHg AV Area 0 cm MV Gradient Peak 0 mmHg MV Mean 0 mmHg MV Area cm COMMENTS: Plug Shaper Hand: Marly [employer] General Supervisor: 4 Dr. Machado TAPE# Pericardial Effusion Y DATE OF SERVICE: This is a limited echocardiogram Left ventricle shows mildly dilated left ventricular cavity with ejection fraction of 35% to 40%, global hypokinesis. The patient has moderate mitral regurgitation and severe tricuspid regurgitation. Aortic valve is grossly normal. The right-sided structures are dilated. It appears the patient has dyskinetic left ventricular septum. The patient's right ECHOCARDIOGRAM REPORT [id number] TRAM BYERS ventricular systolic pressures appear to be elevated, but we did not get good envelopes for accurate estimation. TRANSINT:[id number] Voice Confirmation ID: [id number] DOCUMENT ID: [id number] LE MACHADO MD CC: [id number] DICTATION DATE: 01/17/21 1331 CARPENTER ASSEMBLER: 01/17/21 212 ADM IN [facility] [address] [id number]
[~2021-01-16 03:02] MED LIST changes: +CHRONULAC30 ML PO; +DOK100 MG PO; +K-DUR20 MEQ PO; +LASIX80 MG PO; +NICODERM CQ1 EAC3 TRANSDERM; +TOPROL XL25 MG PO
[2021-01-16 03:24] LABS: HEMATOCRIT 32.8 % (42.0-54.0); HEMOGLOBIN 10.1 g/dL (13.5-17.5); LYMPHOCYTE ABS# 0.99 10x3/uL (1.32-3.57); MCHC 30.8 g/dL (31.0-37.0); MCV 74.7 fL (80.0-100.0); MEAN PLATELET VOLUME 9.5 fL (7.4-10.4); MONOCYTES 12.6 % (2-11); NEUTROPHIL ABS# 2.07 10x3/uL (1.78-5.38); NEUTROPHILS 54.4 % (40-80); RBC 4.39 10x6/uL (4.20-6.10); RDW 20.5 % (11.5-14.5); WBC 3.8 10x3/uL (4.8-10.8)
[2021-01-16 03:25] LABS: PLATELET COUNT 171 10x3/uL (130-400)
[2021-01-16 03:31] LABS: APTT 36.7 SECONDS (22.8-39.4); INR 1.58 (0.85-1.17); PROTIME 17.5 SECONDS (11.6-15.0)
[2021-01-16 03:32] VITALS: BP 110/64
[2021-01-16 03:39] LABS: CALC OSMOLALITY 285 mosm/kg (275-300); CALCIUM 8.5 mg/dL (8.5-10.1); CARBON DIOXIDE 24.6 mmol/L (21.0-32.0); CHLORIDE - SERUM 108 mmol/L (98-107); CREATININE - SERUM 1.1 mg/dL (0.6-1.3); GLUCOSE 104 mg/dL (74-106); POTASSIUM - SERUM 3.2 mmol/L (3.5-5.1); SODIUM 143 mmol/L (136-145); UREA NITROGEN 14 mg/dL (7-18); eGFR NON AFRICAN AMERICAN 77 mL/min (90-120)
[2021-01-16 03:55] LABS: ALBUMIN 2.7 g/dL (3.4-5.0); ALKALINE PHOSPHATASE 83 U/L (30-120); ALT (SGPT) 14 U/L (10-68); BILIRUBIN - TOTAL 0.73 mg/dL (0.2-1.3); CKMB 1.1 U/L (0.0-3.6); CREATINE KINASE 143 UL (21-232); MAGNESIUM - SERUM 1.8 mg/dL (1.8-2.4); PRO BNP 2013 pg/mL (0-125); PROTEIN - SERUM 6.9 g/dL (6.4-8.2)
[2021-01-16 03:56] LABS: TROPONIN-I < 0.017 ng/mL (0.000-0.060)
[2021-01-16 08:36] VITALS: BP 120/85
[2021-01-16 10:37] VITALS: BP 120/85; BMI 28.0
--- NOTE | 2021-01-16 11:31 | NUR ---
PATIENT LEAVING FOR SURGERY WITH PREOP MEDICATION GIVEN. STABLE AT TIME OF DEPARTURE.
[2021-01-16 13:04] VITALS: BP 128/90
--- NOTE | 2021-01-16 13:35 | NUR ---
RETURNED FROM SURGERY AND RESPONSIVE TO VERBAL STIMULI. AMANDA CATH PATENT WITH STRAW COLOR URINE. ABDOMINAL DRESSING INTACT WITH BINDER. IVF INFUSING AT PRESCRIBED RATE. ENCOURAGED TO USE CALL LIGHT FOR ASSSIT.
[2021-01-16 16:57] VITALS: BP 120/90
--- NOTE | 2021-01-16 19:23 | NUR ---
PATIENT RESTING IN BED WITH NO S/S OF DISTRESS AND EYES CLOSED AT THIS TIME. BED IN LOWEST POSITION AND CALL LIGHT IN REACH.
[2021-01-16 20:15] VITALS: BP 112/73
[2021-01-17 04:00] VITALS: BP 100/68
[2021-01-17 04:38] LABS: BASOPHILS 0.6 % (0-2); EOSINOPHILS 2.7 % (0-7); HEMATOCRIT 35.3 % (42.0-54.0); HEMOGLOBIN 10.5 g/dL (13.5-17.5); IMMATURE GRANULOCYTES 0.2 % (0-5); LYMPHOCYTE ABS# 0.69 10x3/uL (1.32-3.57); LYMPHOCYTES 14.2 % (15-50); MCH 22.7 pg (26.0-34.0); MCHC 29.7 g/dL (31.0-37.0); MCV 76.4 fL (80.0-100.0); MEAN PLATELET VOLUME 9.4 fL (7.4-10.4); MONOCYTES 15.9 % (2-11); NEUTROPHIL ABS# 3.22 10x3/uL (1.78-5.38); NEUTROPHILS 66.4 % (40-80); PLATELET COUNT 179 10x3/uL (130-400); RBC 4.62 10x6/uL (4.20-6.10); RDW 20.6 % (11.5-14.5)
[2021-01-17 04:39] LABS: WBC 4.9 10x3/uL (4.8-10.8)
[2021-01-17 05:07] LABS: ALBUMIN 2.6 g/dL (3.4-5.0); ANION GAP 14.4 mmol/L (8-16); BILIRUBIN - TOTAL 0.88 mg/dL (0.2-1.3); CALCIUM 8.3 mg/dL (8.5-10.1); CARBON DIOXIDE 22.7 mmol/L (21.0-32.0); MAGNESIUM - SERUM 1.9 mg/dL (1.8-2.4); PHOSPHOROUS 4.7 mg/dL (2.5-4.9); PROTEIN - SERUM 6.8 g/dL (6.4-8.2)
[2021-01-17 05:11] LABS: CREATININE - SERUM 1.4 mg/dL (0.6-1.3); POTASSIUM - SERUM 4.1 mmol/L (3.5-5.1)
[2021-01-17 06:26] LABS: UDS - AMPHET POSITIVE QUAL (NEGATIVE); UDS - BARB NEGATIVE QUAL (NEGATIVE); UDS - BENZO NEGATIVE QUAL (NEGATIVE); UDS - COCAINE NEGATIVE QUAL (NEGATIVE); UDS - OPIATE POSITIVE QUAL (NEGATIVE); UDS - PCP NEGATIVE QUAL (NEGATIVE); UDS - THC NEGATIVE QUAL (NEGATIVE)
[2021-01-17 07:43] LABS: BILIRUBIN NEGATIVE (NEGATIVE); KETONE NEGATIVE (NEGATIVE); NITRITE NEGATIVE (NEGATIVE); UROBILINOGEN NORMAL mg/dL (< 2); WHITE CELLS - URINE OCC HPF (0-1)
[2021-01-17 07:45] LABS: BACTERIA NONE SEEN HPF (NONE SEEN); SQUAMOUS EPITHELIAL RARE HPF (0-4)
[2021-01-17 09:19] VITALS: BP 106/77
[2021-01-17 13:35] VITALS: BP 95/62
[2021-01-17 18:03] VITALS: BP 101/70
--- NOTE | 2021-01-17 19:28 | NUR ---
PATIENT RESTING IN BED WITH NO S/S OF DISTRESS. PATIENT DENIES NEEDS AT THIS TIME. BED IN LOWEST POSITION AND CALL LIGHT IN REACH. ENCOURAGED PATIENT TO CALL IF HE HAS NEEDS.
[2021-01-17 20:00] VITALS: BP 97/60
--- NOTE | 2021-01-17 21:13 | NUR ---
ADMINISTERED MEDS PER ORDERS. ENCOURAGED TO CALL WITH NEEDS.
[2021-01-18 01:10] VITALS: BP 95/62
[2021-01-18 04:00] VITALS: BP 98/60
[2021-01-18 06:21] LABS: ALBUMIN 2.2 g/dL (3.4-5.0); ANION GAP 9.8 mmol/L (8-16); BILIRUBIN - TOTAL 0.65 mg/dL (0.2-1.3); CALCIUM 7.9 mg/dL (8.5-10.1); CARBON DIOXIDE 25.2 mmol/L (21.0-32.0); CREATININE - SERUM 1.2 mg/dL (0.6-1.3); PROTEIN - SERUM 6.2 g/dL (6.4-8.2)
[2021-01-18 09:36] VITALS: BP 90/50
[2021-01-18 10:22] LABS: BASOPHILS 0.5 % (0-2); EOSINOPHILS 5.3 % (0-7); HEMATOCRIT 33.4 % (42.0-54.0); IMMATURE GRANULOCYTES 0.2 % (0-5); LYMPHOCYTE ABS# 0.78 10x3/uL (1.32-3.57); LYMPHOCYTES 18.1 % (15-50); MCH 22.8 pg (26.0-34.0); MCHC 29.9 g/dL (31.0-37.0); MCV 76.3 fL (80.0-100.0); MONOCYTES 14.4 % (2-11); NEUTROPHIL ABS# 2.65 10x3/uL (1.78-5.38); NEUTROPHILS 61.5 % (40-80); PLATELET COUNT 147 10x3/uL (130-400); RBC 4.38 10x6/uL (4.20-6.10); RDW 20.9 % (11.5-14.5); WBC 4.3 10x3/uL (4.8-10.8)
--- NOTE | 2021-01-18 10:44 | NUR ---
AMANDA CATHETER REMOVED BULB DEFLATED AND INTACT. PATIENT TOLERATED WELL.
[2021-01-18 12:32] VITALS: BP 100/45
[2021-01-18 12:54] VITALS: Ht 177.8 cm; Wt 88.5 kg
[2021-01-18 16:56] VITALS: BP 100/50
[2021-01-18 20:00] VITALS: BP 100/61
[2021-01-19] VITALS: BP 110/71
[2021-01-19 04:00] VITALS: BP 110/69
--- NOTE | 2021-01-19 06:22 | NUR ---
I have reviewed this patient and I concur with the Shift Assessment completed by the Licensed Practical Nurse today this shift.
[2021-01-19 06:39] LABS: BASOPHILS 0.6 % (0-2); EOSINOPHILS 6.2 % (0-7); HEMATOCRIT 33.6 % (42.0-54.0); HEMOGLOBIN 10.4 g/dL (13.5-17.5); IMMATURE GRANULOCYTES 0.2 % (0-5); LYMPHOCYTE ABS# 1.11 10x3/uL (1.32-3.57); LYMPHOCYTES 23.6 % (15-50); MCH 22.6 pg (26.0-34.0); MEAN PLATELET VOLUME 9.2 fL (7.4-10.4); MONOCYTES 14.9 % (2-11); NEUTROPHIL ABS# 2.56 10x3/uL (1.78-5.38); NEUTROPHILS 54.5 % (40-80); PLATELET COUNT 174 10x3/uL (130-400); RDW 20.2 % (11.5-14.5); WBC 4.7 10x3/uL (4.8-10.8)
[2021-01-19 06:42] LABS: ALBUMIN 2.5 g/dL (3.4-5.0); ALKALINE PHOSPHATASE 84 U/L (30-120); BILIRUBIN - TOTAL 0.62 mg/dL (0.2-1.3); CALC OSMOLALITY 276 mosm/kg (275-300); CALCIUM 8.2 mg/dL (8.5-10.1); CARBON DIOXIDE 26.6 mmol/L (21.0-32.0); CHLORIDE - SERUM 105 mmol/L (98-107); CREATININE - SERUM 1.1 mg/dL (0.6-1.3); GLUCOSE 83 mg/dL (74-106); MAGNESIUM - SERUM 1.6 mg/dL (1.8-2.4); POTASSIUM - SERUM 3.6 mmol/L (3.5-5.1); PROTEIN - SERUM 6.2 g/dL (6.4-8.2); SODIUM 140 mmol/L (136-145); UREA NITROGEN 11 mg/dL (7-18); eGFR NON AFRICAN AMERICAN 77 mL/min (90-120)
[2021-01-19 06:44] LABS: ALT (SGPT) 12 U/L (10-68)
[2021-01-19 08:49] VITALS: BP 103/61
[2021-01-19 11:44] VITALS: BP 103/70
[2021-01-19] MEDS ORDERED: MUCINEX600 MG PO (13:01)
[2021-01-19] MEDS ORDERED: FLORAJEN3 CAPS460 MG PO (13:01)
[2021-01-19] MEDS ORDERED: TESSALON PERLE100 MG PO (13:01)
[2021-01-19] MEDS ORDERED: ZITHROMAX500 MG PO (13:03)
[2021-01-19] MEDS ORDERED: OMNICEF300 MG PO (13:03)
[2021-01-19] MEDS ORDERED: HYDROCODON-ACE1 EAC7 PO (13:46)
--- NOTE | 2021-01-19 15:36 | NUR ---
0700 BEDSIDE SHIFT RECEIVED AWAKE AND ALERT IN BED VOICES NO COMPLAINTS VOIDING CLEAR YELLOW URINE IN URINAL
--- NOTE | 2021-01-19 15:37 | NUR ---
1450 PT DISCHARGED PATIENT HAD PULLED OUT HIS OWN IV WHEN NURSE WAS OUT OF ROOM WRITTEN AND VERBAL DISCHARGE INSTRUCTIONS GIVEN PAPER RX FOR CAROLYN PROVIDED ALL PAPERWORK SIGNED WAITING ON HIS BROTHER TO PICK HIM UP
--- NOTE | 2021-01-19 15:40 | NUR ---
1502 TRANSPORTED VIA WHEELCHAIR TO [facility]
== END 2021-01-19 15:15 | disposition home or self-care (01) | DRG 354 ==
LOC: D.ER 03:02 → D.MS 05:48
PROVIDERS: Emergency Medicine; Family Medicine; Surgery; ADMIT Family Medicine; ATTEND Family Medicine
PROC: 0WUF0JZ Supplement Abdominal Wall with Synthetic Substitute, Open Approach (ICD-10-PCS; principal; 2021-01-16 11:14)
DX: K43.6 Other and unspecified ventral hernia with obstruction, without gangrene (principal); R18.8 Other ascites; F17.203 Nicotine dependence unspecified, with withdrawal; E11.9 Type 2 diabetes mellitus without complications; I08.1 Rheumatic disorders of both mitral and tricuspid valves; K74.60 Unspecified cirrhosis of liver; E87.6 Hypokalemia; I11.0 Hypertensive heart disease with heart failure; Z72.89 Other problems related to lifestyle; F12.90 Cannabis use, unspecified, uncomplicated; I50.9 Heart failure, unspecified

== ENCOUNTER 2021-02-09 13:24 | Emergency (ER) | payer MEDICARE ==
[~2021-02-09] VITALS: Ht 177.8 cm; Wt 88.6 kg
[~2021-02-09 13:24] MED LIST changes: +FLORAJEN3 CAPS460 MG PO; +HYDROCODON-ACE1 EAC7 PO; +MUCINEX600 MG PO; +ZITHROMAX500 MG PO
[2021-02-09 13:34] VITALS: BP 112/73; Ht 177.8 cm; Wt 88.6 kg
== END 2021-02-09 14:00 | disposition home or self-care (01) ==
LOC: D.ER 13:24
DX: Z48.89 Encounter for other specified surgical aftercare (principal); E11.9 Type 2 diabetes mellitus without complications

== ENCOUNTER 2021-02-20 03:02 | Inpatient (IN) | payer MEDICARE ==
[~2021-02-20] VITALS: Ht 177.8 cm; Wt 88.5 kg
[2021-02-20 03:52] LABS: BASOPHILS 1.2 % (0-2); EOSINOPHILS 5.1 % (0-7); HEMOGLOBIN 10.6 g/dL (13.5-17.5); IMMATURE GRANULOCYTES 0.2 % (0-5); LYMPHOCYTE ABS# 0.98 10x3/uL (1.32-3.57); MCH 22.7 pg (26.0-34.0); MCHC 31.2 g/dL (31.0-37.0); MCV 72.8 fL (80.0-100.0); MONOCYTES 12.7 % (2-11); NEUTROPHIL ABS# 2.31 10x3/uL (1.78-5.38); NEUTROPHILS 56.8 % (40-80); PLATELET COUNT 165 10x3/uL (130-400); RBC 4.67 10x6/uL (4.20-6.10); RDW 18.8 % (11.5-14.5); WBC 4.1 10x3/uL (4.8-10.8)
[2021-02-20 04:00] LABS: CALC OSMOLALITY 282 mosm/kg (275-300); CALCIUM 8.5 mg/dL (8.5-10.1); CARBON DIOXIDE 25.3 mmol/L (21.0-32.0); CHLORIDE - SERUM 109 mmol/L (98-107); GLUCOSE 100 mg/dL (74-106); POTASSIUM - SERUM 4.2 mmol/L (3.5-5.1); SODIUM 142 mmol/L (136-145); UREA NITROGEN 12 mg/dL (7-18); eGFR NON AFRICAN AMERICAN 86 mL/min (90-120)
[2021-02-20 04:03] LABS: APTT 35.3 SECONDS (22.8-39.4); INR 1.56 (0.85-1.17); PROTIME 17.3 SECONDS (11.6-15.0)
[2021-02-20 04:16] VITALS: BP 137/99
[2021-02-20 04:18] LABS: ALBUMIN 2.5 g/dL (3.4-5.0); ALKALINE PHOSPHATASE 94 U/L (30-120); ALT (SGPT) 18 U/L (10-68); BILIRUBIN - TOTAL 0.71 mg/dL (0.2-1.3); CKMB 1.9 U/L (0.0-3.6); CREATINE KINASE 139 UL (21-232); PRO BNP 2196 pg/mL (0-125); PROTEIN - SERUM 6.6 g/dL (6.4-8.2)
[2021-02-20 04:24] LABS: TROPONIN-I < 0.017 ng/mL (0.000-0.060)
[2021-02-20 05:48] VITALS: BP 106/81
[2021-02-20 06:08] VITALS: BP 106/81
--- NOTE | 2021-02-20 07:40 | NUR ---
INITIAL ROUNDS- PT RESTING COMFORTABLY IN BED WITH EYES CLOSED, EASILY AROUSES TO VOICE. RESP EVEN AND NONLABORED ON 2L. RT HAND IV SL, SR -97 ON TELE. PT DRNIES ANY NEEDS AT THIS TIME. CALL LIGHT IN REACH, WILL CONTINEU PLAN OF CARE.
[2021-02-20 08:14] VITALS: BP 111/54
[2021-02-20 12:24] VITALS: BP 103/75
[2021-02-20 12:36] VITALS: Ht 177.8 cm; Wt 88.5 kg
--- NOTE | 2021-02-20 16:32 | NUR ---
BLOOD SUGAR OF 158, 2UNITS GIVEN PER S/S ALSO GAVE NORCO FOR PAIN LEVEL OF 6/10. PT DENIES ANY OTHER NEEDS AT THIS TIME. CALL LIGHT IN REACH.
--- NOTE | 2021-02-20 19:08 | NUR ---
RECEIVED REPORT, WILL ASSUME CARE OF PT, WATCHING TV, DENIES ANY NEEDS AT THIS TIME, BED IS LOW, SRX1, CALL LIGHT IN REACH, WILL CONTINUE PLAN OF CARE
[2021-02-20 21:49] VITALS: BP 100/72
[2021-02-21 02:15] VITALS: BP 100/61
[2021-02-21 06:08] VITALS: BP 99/54
[2021-02-21 06:20] LABS: EOSINOPHILS 5.4 % (0-7); HEMOGLOBIN 10.2 g/dL (13.5-17.5); LYMPHOCYTE ABS# 0.96 10x3/uL (1.32-3.57); LYMPHOCYTES 24.7 % (15-50); MCH 22.1 pg (26.0-34.0); MCHC 30.9 g/dL (31.0-37.0); MCV 71.6 fL (80.0-100.0); MEAN PLATELET VOLUME 9.4 fL (7.4-10.4); MONOCYTES 13.7 % (2-11); NEUTROPHIL ABS# 2.14 10x3/uL (1.78-5.38); NEUTROPHILS 55.2 % (40-80); PLATELET COUNT 178 10x3/uL (130-400); RBC 4.61 10x6/uL (4.20-6.10); RDW 18.6 % (11.5-14.5); WBC 3.9 10x3/uL (4.8-10.8)
[2021-02-21 06:49] LABS: ANION GAP 12.4 mmol/L (8-16); CALCIUM 8.4 mg/dL (8.5-10.1); CARBON DIOXIDE 24.1 mmol/L (21.0-32.0); CREATININE - SERUM 1.2 mg/dL (0.6-1.3); MAGNESIUM - SERUM 1.7 mg/dL (1.8-2.4); PHOSPHOROUS 5.5 mg/dL (2.5-4.9)
[2021-02-21 06:50] LABS: POTASSIUM - SERUM 3.5 mmol/L (3.5-5.1)
--- NOTE | 2021-02-21 07:40 | NUR ---
AM ROUNDS- PT RESTING COMFORTABLY IN BED, A/O X4, RESP EVEN BUT A LITTLE LABORED ON RA, PLACED O2 ON 2L AND ENCOURAGED PT TO TAKE IN SLOW DEEP BREATHS. SR-70 ON TELE. RT HAND IV SL. ALL NEEDS MET, CALL LIGHT IN REACH, WILL CONTINUE PLAN OF CARE.
[2021-02-21 09:09] VITALS: BP 95/53
--- NOTE | 2021-02-21 11:31 | NUR ---
BLOOD SUGAR OF 122, NO COVERAGE NEEDED PER S/S. ALSO GAVE 40MEQ OF K FOR K OF 3.5 AND 800MG OF MAG FOR LOW MAG O F 1.7. ALL NEEDS MET, CALL LIGHT IN REACH.
[2021-02-21 12:17] VITALS: BP 100/56
--- NOTE | 2021-02-21 13:16 | NUR ---
NORCO GIVEN FOR PAIN LEVEL OF 6/10. PT DENIES ANY OTHER NEEDS AT THIS TIME. CALL LIGHT IN REACH.
--- NOTE | 2021-02-21 16:27 | NUR ---
BLOOD SUGAR OF 149, NO COVERAGE NEEDED PER S/S. INFORMED PT THAT WE NEED A URINE SAMPLE, COLLECTION CUP LEFT AT BEDSIDE. ALL NEEDS MET.
[2021-02-21 16:33] VITALS: BP 93/56
--- NOTE | 2021-02-21 19:30 | NUR ---
RECEIVED REPORT, WILL ASSUME CARE OF PT, ASKING FOR SANDWICH, PROVIDED, COLLECTED UA, TOOK TO LAB, DENIES ANY OTHER NEEDS AT THIS TIME, BED IS LOW, SRX2, CALL LIGHT IN REACH, WILL CONTINUE PLAN OF CARE
[2021-02-21 20:45] LABS: UDS - AMPHET NEGATIVE QUAL (NEGATIVE); UDS - BARB NEGATIVE QUAL (NEGATIVE); UDS - BENZO NEGATIVE QUAL (NEGATIVE); UDS - COCAINE NEGATIVE QUAL (NEGATIVE); UDS - OPIATE POSITIVE QUAL (NEGATIVE); UDS - PCP NEGATIVE QUAL (NEGATIVE); UDS - THC NEGATIVE QUAL (NEGATIVE)
[2021-02-21 21:39] VITALS: BP 91/66
[2021-02-22 04:13] VITALS: BP 77/43
--- NOTE | 2021-02-22 04:24 | NUR ---
RECHECK BP 86/52,
--- NOTE | 2021-02-22 06:13 | NUR ---
I have reviewed this patient and I concur with the Shift Assessment completed by the Licensed Practical Nurse today this shift.
[2021-02-22 07:06] LABS: BASOPHILS 0.9 % (0-2); HEMATOCRIT 32.4 % (42.0-54.0); LYMPHOCYTE ABS# 1.06 10x3/uL (1.32-3.57); LYMPHOCYTES 31.9 % (15-50); MCH 22.1 pg (26.0-34.0); MCHC 30.9 g/dL (31.0-37.0); MCV 71.7 fL (80.0-100.0); MEAN PLATELET VOLUME 10.4 fL (7.4-10.4); MONOCYTES 17.5 % (2-11); NEUTROPHIL ABS# 1.45 10x3/uL (1.78-5.38); NEUTROPHILS 43.7 % (40-80); PLATELET COUNT 205 10x3/uL (130-400); RBC 4.52 10x6/uL (4.20-6.10); RDW 18.7 % (11.5-14.5); WBC 3.3 10x3/uL (4.8-10.8)
[2021-02-22 07:40] LABS: ALBUMIN 2.3 g/dL (3.4-5.0); ALKALINE PHOSPHATASE 90 U/L (30-120); ALT (SGPT) 18 U/L (10-68); BILIRUBIN - TOTAL 0.43 mg/dL (0.2-1.3); CALC OSMOLALITY 272 mosm/kg (275-300); CALCIUM 8.5 mg/dL (8.5-10.1); CARBON DIOXIDE 25.8 mmol/L (21.0-32.0); CHLORIDE - SERUM 103 mmol/L (98-107); GLUCOSE 97 mg/dL (74-106); MAGNESIUM - SERUM 1.8 mg/dL (1.8-2.4); PHOSPHOROUS 5.3 mg/dL (2.5-4.9); PROTEIN - SERUM 5.9 g/dL (6.4-8.2); SODIUM 137 mmol/L (136-145); UREA NITROGEN 11 mg/dL (7-18); eGFR NON AFRICAN AMERICAN 86 mL/min (90-120)
[2021-02-22 07:42] LABS: POTASSIUM - SERUM 4.1 mmol/L (3.5-5.1)
[2021-02-22 08:47] LABS: INR 1.61 (0.85-1.17); PROTIME 17.7 SECONDS (11.6-15.0)
[2021-02-22 09:19] VITALS: BP 91/60
--- NOTE | 2021-02-22 11:29 | NUR ---
NOTIFIED MARTIN SYKES THAT PT HAD A 3SEC PAUSE. NO NEW ORDERS AT THIS TIME.
--- NOTE | 2021-02-22 11:32 | NUR ---
BLOOD SUGAR OF 109, NO COVERAGE NEEDED PER S/S.
[2021-02-22 20:00] VITALS: BP 96/72
--- NOTE | 2021-02-22 21:00 | NUR ---
REPORT RECEIVED, PT A&O, UP IN BED WATCHING TV. NO S/S OF DISTRESS OBSERVED. RR EVEN & UNLABORED ON 2L. IV TO R HAND PATENT AND SL. BED LOCKED AND LOWERED, CL IN REACH. ASSESSMENT COMPLETE. WILL CONT POC.
[2021-02-23] VITALS: BP 91/59
[2021-02-23 04:00] VITALS: BP 94/66
[2021-02-23 05:35] LABS: BASOPHILS 1.1 % (0-2); EOSINOPHILS 5.6 % (0-7); HEMATOCRIT 33.9 % (42.0-54.0); HEMOGLOBIN 10.6 g/dL (13.5-17.5); LYMPHOCYTES 31.1 % (15-50); MCH 22.3 pg (26.0-34.0); MCHC 31.3 g/dL (31.0-37.0); MCV 71.2 fL (80.0-100.0); MEAN PLATELET VOLUME 10.2 fL (7.4-10.4); MONOCYTES 16.9 % (2-11); NEUTROPHILS 45.3 % (40-80); PLATELET COUNT 214 10x3/uL (130-400); RBC 4.76 10x6/uL (4.20-6.10); RDW 18.6 % (11.5-14.5); WBC 3.5 10x3/uL (4.8-10.8)
[2021-02-23 05:46] LABS: INR 1.56 (0.85-1.17); PROTIME 17.3 SECONDS (11.6-15.0)
[2021-02-23 06:13] LABS: ALBUMIN 2.4 g/dL (3.4-5.0); ALKALINE PHOSPHATASE 96 U/L (30-120); ALT (SGPT) 16 U/L (10-68); BILIRUBIN - TOTAL 0.64 mg/dL (0.2-1.3); CALC OSMOLALITY 276 mosm/kg (275-300); CALCIUM 8.6 mg/dL (8.5-10.1); CHLORIDE - SERUM 106 mmol/L (98-107); GLUCOSE 83 mg/dL (74-106); MAGNESIUM - SERUM 1.8 mg/dL (1.8-2.4); PHOSPHOROUS 4.6 mg/dL (2.5-4.9); POTASSIUM - SERUM 4.3 mmol/L (3.5-5.1); PROTEIN - SERUM 6.6 g/dL (6.4-8.2); SODIUM 140 mmol/L (136-145); UREA NITROGEN 11 mg/dL (7-18); eGFR NON AFRICAN AMERICAN 86 mL/min (90-120)
--- NOTE | 2021-02-23 07:51 | NUR ---
AM ROUNDING DONE WITH PATIENT ASKING FOR MORE CRANBERRY JUICE. 2 CONTAINERS GIVEN. ON ROOM AIR AT THIS TIME. ON HEART MONITOR. RIGHT HAND PIV SALINE LOCK SEEN. REFUSED TO WEAR SCD, RE-EDUCATED. ON ORAL BUMEX AND PAIN MEDS NNEDED ORDERED. CALL LIGHT INUSE.
[2021-02-23 08:00] VITALS: BP 86/58
[2021-02-23 11:11] LABS: HEPATITIS C ANTIBODY 0.1 S/CO RAT (0.0-0.9)
--- NOTE | 2021-02-23 12:33 | NUR ---
Nutrition Reassessment/Follow-up: Eating well. Noted plans to d/c soon. Diet: Cardiac Carb Consistent PO intake: 98% avg x 10 meals No new wt; last wt: 195# (02/20) Labs noted: Glu 83, Alb 2.4 Meds noted: Bumex, Lactulose, Humalog, electrolyte protocol -Nutrition needs unchanged since initial assessment; no new wt available. -RD will follow up within 7 days if pt still admitted.
--- NOTE | 2021-02-23 13:44 | NUR ---
PATIENT ASKED THAT I CALL [phone] (LISA) AND ASK THEM TO COME GET IM FOR RIDE THIS PERSON IS NOT ANSWERING WHEN MR BYERS CALLS. I LEFT A VOICEMAIL.
--- NOTE | 2021-02-23 15:52 | MORECARE ---
CASE MANAGEMENT DISCHARGE SUMMARY PATIENT: TRAM BYERS UNIT: [id number] ADM DATE: 02/20/21 AGE: 45 : 77 SEX: M ROOM/BED: D.6556 AUTHOR: LISADOC PHYSICIAN: REFERRING PHYSICIAN: KAYLYN BUTTS MD DATE OF SERVICE: 02/23/21 Case Management Discharge Planning Summary COMMENTS ENTERED DATE: 02/23/21 15:44 CT COMMENT TYPE: Discharge Planning REVIEWER: Nicole Richard DC PLAN: Home ANTICIPATED DC NEEDS: No needs CM met with patient to complete initial dc planning assessment. CM educated patient on the CM role and verbal consent given by patient to complete assessment. CM verified patient's address, phone number, and emergency contact phone numbers. States he lives at [address] [place] [address] on [facility]. States he is independent with his care. States his brother is coming to pick him up. I questioned him about his home health that I set up for him last admission and he states "it just didn't work out. Declines home health. Discharging home today. Declines needs. DCP REVIEW SUMMARY ANTICIPATED D/C DATE: 02/23/2021 EXPECTED LOS : 3 CASE STATUS: DCP Initiated INITIAL REVIEW: 02/23/2021 INITIAL REVIEWER: Nicole Richard FINAL DISCHARGE DISPOSITION: : FINAL REVIEWER: FINAL REVIEW DATE: DCP Focus Questions & Answers DCP Evaluation QUESTION: ANSWER Patient gives permission to discuss discharge plans with: (name, relationship and number) : Jorge davila - [phone] Patient's ability to cope with chronic illness : d. No chronic illness Patient's current cognitive status: : *Oriented to person, place, situation, time and present Physical Status: : Independent with ADL's Family / Caregiver's ability to cope with chronic illness: : c. Inadequate (Enables pt. to make bad choices, cannot meet pt's. needs, difficult family dynamics) Functional screen assessment: : No issues identified Living Arrangements: : Home Alone with No Support Baseline cognitive status: : *Oriented to person, place, situation, time and present Results of this evaluation have been discussed with: : Patient Medication Management: : Patient states can afford medications [facility]): : [facility] [address] No PCP Does Patient have transportation to get home and to follow-up medical appointments when discharged from the hospital? : Yes Would patient like to participate in any Care Coordination programs (if applicable): : Not applicable Equipment in use: : CPAP Equipment in use: : Home Oxygen with Nasal Cannula Equipment in use: : Other Other Equipment comments: : Portable oxygen Mental health screen: : No mental health history Psychosocial status: : Adult with physical limitations DCP Re-evaluation QUESTION: ANSWER Would patient like to participate in any Care Coordination programs (if applicable): : Not applicable PATIENT: TRAM BYERS ENCOUNTER: [id number] MEDICAL RECORD#: [id number] ADMISSION DATE: 02/20/2021 DISCHARGE DATE: ATTENDING MD: KAYLYN REYES : AGE: 45 MARITAL STATUS: S DC PLAN ID: [id number] FACILITY: [facility] PRINTED ON: 02/23/21 15:52 CT All edits/amendments must be made on the electronic document DICTATION DATE: 02/23/211551 RUG CUTTER HELPER: JERRY 02/23/211551 RPT#: [id number] DC DATE: STATUS: ADM IN [facility] [address] [place] [address] END OF REPORT
--- NOTE | 2021-02-23 16:54 | NUR ---
PATIENT IS ASKED AGAIN WHEN HIS RIDE WILL BE HERE. STATES, "THEY ARE ON THE WAY".
--- NOTE | 2021-02-23 18:07 | NUR ---
SALINE LOCK REMOVED WITH TIP INTACT. HEART MONITOR TURNED IN. VERBAL AND WRITTEN DISCHARGE INSTRUCTIONS GIVEN TO PATIENT. AWAITING RIDE TO SHOW UP.
== END 2021-02-23 18:46 | disposition home or self-care (01) | DRG 293 ==
LOC: D.ER 03:02 → D.M2 04:50
PROVIDERS: Family Medicine; ADMIT Emergency Medicine; ATTEND Emergency Medicine
DX: I11.0 Hypertensive heart disease with heart failure (principal); I50.23 Acute on chronic systolic (congestive) heart failure; E11.69 Type 2 diabetes mellitus with other specified complication; I42.7 Cardiomyopathy due to drug and external agent; Z91.128 Patient's intentional underdosing of medication regimen for other reason; Z72.0 Tobacco use; Z91.14 Patient's other noncompliance with medication regimen

== ENCOUNTER 2021-03-10 03:50 | Inpatient (IN) | payer MEDICARE ==
[~2021-03-10] VITALS: Ht 177.8 cm; Wt 72.2 kg
--- NOTE | 2021-03-10 04:13 | NUR ---
pt provided with blankets upon request
[2021-03-10 04:28] LABS: BASOPHILS 2.1 % (0-2); EOSINOPHILS 5.5 % (0-7); HEMATOCRIT 34.6 % (42.0-54.0); HEMOGLOBIN 10.9 g/dL (13.5-17.5); LYMPHOCYTES 23.9 % (15-50); MCH 22.3 pg (26.0-34.0); MCHC 31.5 g/dL (31.0-37.0); MCV 70.7 fL (80.0-100.0); MEAN PLATELET VOLUME 8.9 fL (7.4-10.4); MONOCYTES 11.8 % (2-11); NEUTROPHILS 56.7 % (40-80); PLATELET COUNT 226 10x3/uL (130-400); RBC 4.89 10x6/uL (4.20-6.10); RDW 19.3 % (11.5-14.5); WBC 3.8 10x3/uL (4.8-10.8)
[2021-03-10 04:46] LABS: CALC OSMOLALITY 285 mosm/kg (275-300); CALCIUM 8.5 mg/dL (8.5-10.1); CARBON DIOXIDE 22.8 mmol/L (21.0-32.0); CHLORIDE - SERUM 109 mmol/L (98-107); CREATININE - SERUM 0.9 mg/dL (0.6-1.3); GLUCOSE 91 mg/dL (74-106); POTASSIUM - SERUM 4.1 mmol/L (3.5-5.1); SODIUM 143 mmol/L (136-145); UREA NITROGEN 14 mg/dL (7-18); eGFR NON AFRICAN AMERICAN > 90 mL/min (90-120)
[2021-03-10 04:54] VITALS: BP 101/73
[2021-03-10 05:00] LABS: ALBUMIN 2.7 g/dL (3.4-5.0); ALKALINE PHOSPHATASE 95 U/L (30-120); ALT (SGPT) 18 U/L (10-68); BILIRUBIN - TOTAL 0.74 mg/dL (0.2-1.3); CKMB 2.4 U/L (0.0-3.6); CREATINE KINASE 164 UL (21-232); MAGNESIUM - SERUM 1.8 mg/dL (1.8-2.4); PROTEIN - SERUM 6.8 g/dL (6.4-8.2)
[2021-03-10 05:01] LABS: TROPONIN-I < 0.017 ng/mL (0.000-0.060)
[2021-03-10 05:36] LABS: APTT 35.5 SECONDS (22.8-39.4); INR 1.53 (0.85-1.17); PROTIME 17.1 SECONDS (11.6-15.0)
[2021-03-10 05:42] VITALS: BP 107/86
[2021-03-10 07:38] VITALS: BP 104/65
[2021-03-10 09:04] VITALS: Ht 177.8 cm; Wt 72.2 kg
[2021-03-10 12:13] VITALS: BP 96/63
[2021-03-10 16:08] VITALS: BP 115/78
[2021-03-10 21:00] VITALS: BP 99/59
[2021-03-11] VITALS: BP 100/68
[2021-03-11 04:00] VITALS: BP 82/50
--- NOTE | 2021-03-11 04:09 | NUR ---
I have reviewed this patient and I concur with the Shift Assessment completed by the Licensed Practical Nurse today this shift.
[2021-03-11 06:28] LABS: BASOPHILS 1.5 % (0-2); EOSINOPHILS 4.9 % (0-7); HEMATOCRIT 38.5 % (42.0-54.0); LYMPHOCYTES 13.8 % (15-50); MCH 21.8 pg (26.0-34.0); MCHC 31.2 g/dL (31.0-37.0); MCV 69.9 fL (80.0-100.0); MONOCYTES 14.1 % (2-11); NEUTROPHILS 65.7 % (40-80); PLATELET COUNT 253 10x3/uL (130-400); RBC 5.51 10x6/uL (4.20-6.10); RDW 19.1 % (11.5-14.5); WBC 4.4 10x3/uL (4.8-10.8)
[2021-03-11 06:40] LABS: ALBUMIN 2.6 g/dL (3.4-5.0); ALKALINE PHOSPHATASE 103 U/L (30-120); ALT (SGPT) 18 U/L (10-68); BILIRUBIN - TOTAL 0.73 mg/dL (0.2-1.3); CALC OSMOLALITY 282 mosm/kg (275-300); CALCIUM 8.9 mg/dL (8.5-10.1); CARBON DIOXIDE 31.7 mmol/L (21.0-32.0); CHLORIDE - SERUM 102 mmol/L (98-107); CREATININE - SERUM 1.1 mg/dL (0.6-1.3); GLUCOSE 113 mg/dL (74-106); MAGNESIUM - SERUM 1.6 mg/dL (1.8-2.4); POTASSIUM - SERUM 3.7 mmol/L (3.5-5.1); PROTEIN - SERUM 6.8 g/dL (6.4-8.2); SODIUM 141 mmol/L (136-145); UREA NITROGEN 16 mg/dL (7-18); eGFR NON AFRICAN AMERICAN 77 mL/min (90-120)
[2021-03-11 08:40] VITALS: BP 94/56
[2021-03-11 11:40] VITALS: BP 96/67
--- NOTE | 2021-03-11 14:31 | NUR ---
PATIENT C/O GENERALIZED PAIN 05/01 ADMINISTERED PRN NORCO PER ORDERS.
[2021-03-11 16:03] VITALS: BP 96/59
--- NOTE | 2021-03-11 18:38 | NUR ---
PATIENT C/O GENERALIZED PAIN 10/10, ADMINISTERED PRN NORCO PER ORDERS.
[2021-03-11 23:18] VITALS: BP 90/51
--- NOTE | 2021-03-12 00:12 | NUR ---
PT COMPLAINS OF SORE BILAT THIGHS. ROXANN SU PAGED WITH NEW ORDERS FOR LIDOCAIN PATCH AMD TO ESTABLISH ELECTROLYTE PROTOCAL. PT A/O X4 RR E/U, VSS. NO S/S OF DISTRESS AT THIS TIME. BED LOW CALL LIGHT WITHIN REACH. WILL CONTINUE TO MONITOR.
--- NOTE | 2021-03-12 00:25 | NUR ---
400MG MAG GIVEN PER EP.
--- NOTE | 2021-03-12 03:46 | NUR ---
MAG TREATED WITH 800MG.
[2021-03-12 05:18] VITALS: BP 95/54
[2021-03-12 06:14] LABS: BASOPHILS 1.2 % (0-2); EOSINOPHILS 7.3 % (0-7); HEMATOCRIT 41.3 % (42.0-54.0); HEMOGLOBIN 12.9 g/dL (13.5-17.5); LYMPHOCYTES 22.2 % (15-50); MCH 21.8 pg (26.0-34.0); MCHC 31.3 g/dL (31.0-37.0); MCV 69.6 fL (80.0-100.0); MEAN PLATELET VOLUME 8.6 fL (7.4-10.4); MONOCYTES 18.6 % (2-11); NEUTROPHILS 50.7 % (40-80); PLATELET COUNT 280 10x3/uL (130-400); RBC 5.93 10x6/uL (4.20-6.10); RDW 19.5 % (11.5-14.5); WBC 4.4 10x3/uL (4.8-10.8)
[2021-03-12 06:52] LABS: ALBUMIN 2.5 g/dL (3.4-5.0); BILIRUBIN - TOTAL 0.7 mg/dL (0.2-1.3); CALCIUM 8.8 mg/dL (8.5-10.1); CARBON DIOXIDE 31.9 mmol/L (21.0-32.0); CREATININE - SERUM 1.2 mg/dL (0.6-1.3); MAGNESIUM - SERUM 1.5 mg/dL (1.8-2.4); POTASSIUM - SERUM 3.9 mmol/L (3.5-5.1); PROTEIN - SERUM 6.9 g/dL (6.4-8.2)
--- NOTE | 2021-03-12 07:20 | NUR ---
Lying in bed, awake/alert/oriented, T/R self ad geoff, cont of B/B with BRPs per self ad geoff, c/o cramping pain in BLE rated 5/10, call light/phone/water within reach, no s/s of acute distress observed.
[2021-03-12 07:42] VITALS: BP 85/44
[2021-03-12 12:19] VITALS: BP 89/53
--- NOTE | 2021-03-12 19:05 | NUR ---
REPORT RECEIVED, PT CARE ASSUMED. PT LYING IN BED, EYES CLOSED, RR EVEN AND NONLABORED, NAD, AROUSES EASILY TO VOICE. AAOX4, REQUESTED TURKEY SANDWICH, PROVIDED. DENIES ANY OTHER NEEDS AT THIS TIME. BED LOWEST, SRX1, CL AND URINAL WITHIN REACH. CPOC.
[2021-03-12 20:37] VITALS: BP 81/50
--- NOTE | 2021-03-12 21:46 | NUR ---
C/O BILATERAL LEG PAIN OF 10, ON A SCALE OF 0-10. PRN NORCO AND PM MEDS ADMINISTERED, PER ORDERS. PT REFUSED SCHEDULED LACTULOSE, REPORTS VOMITING AFTER DOSE EARLIER THIS AM. 1400 ML DARK YELLOW URINE EMPTIED FROM URINALS.
[2021-03-13] VITALS: BP 87/60
[2021-03-13 06:45] LABS: BASOPHILS 1.7 % (0-2); EOSINOPHILS 6.3 % (0-7); HEMATOCRIT 42.8 % (42.0-54.0); HEMOGLOBIN 13.4 g/dL (13.5-17.5); LYMPHOCYTES 27.9 % (15-50); MCH 21.9 pg (26.0-34.0); MCHC 31.3 g/dL (31.0-37.0); MEAN PLATELET VOLUME 8.8 fL (7.4-10.4); MONOCYTES 19.5 % (2-11); NEUTROPHILS 44.6 % (40-80); PLATELET COUNT 284 10x3/uL (130-400); RBC 6.11 10x6/uL (4.20-6.10); RDW 19.2 % (11.5-14.5); WBC 4.2 10x3/uL (4.8-10.8)
--- NOTE | 2021-03-13 07:00 | NUR ---
REPORT RECEIVED. PATIENT IS AAOX4, LYING IN BED. NO S/S OF DISTRESS OBSERVED, RR EVEN AND UNLABORED ON ROOM AIR. PIV TO RT HAND, PATENT, SL. PATIENT DENIES NEEDS AT THIS TIME. CL IN REACH, BED LOCKED AND LOWERED. WILL CPOC.
[2021-03-13 07:36] LABS: ALBUMIN 2.5 g/dL (3.4-5.0); ALKALINE PHOSPHATASE 99 U/L (30-120); ALT (SGPT) 20 U/L (10-68); BILIRUBIN - TOTAL 0.53 mg/dL (0.2-1.3); CALC OSMOLALITY 265 mosm/kg (275-300); CALCIUM 8.7 mg/dL (8.5-10.1); CARBON DIOXIDE 27.4 mmol/L (21.0-32.0); CHLORIDE - SERUM 99 mmol/L (98-107); CREATININE - SERUM 1.1 mg/dL (0.6-1.3); GLUCOSE 96 mg/dL (74-106); MAGNESIUM - SERUM 1.7 mg/dL (1.8-2.4); PROTEIN - SERUM 6.6 g/dL (6.4-8.2); SODIUM 133 mmol/L (136-145); UREA NITROGEN 12 mg/dL (7-18); eGFR NON AFRICAN AMERICAN 77 mL/min (90-120)
[2021-03-13 07:52] VITALS: BP 83/52
[2021-03-13 08:12] LABS: POTASSIUM - SERUM 4.7 mmol/L (3.5-5.1)
[2021-03-13 11:11] VITALS: BP 72/46
--- NOTE | 2021-03-13 11:37 | NUR ---
I have reviewed this patient and I concur with the Shift Assessment completed by the Licensed Practical Nurse today this shift.
[2021-03-13 15:47] VITALS: BP 87/58
[2021-03-13 20:00] VITALS: BP 86/54
[2021-03-14] VITALS (7 sets, daily range): BP systolic 78–96; BP diastolic 46–62
[2021-03-14 06:04] LABS: MCH 21.7 pg (26.0-34.0); MCHC 31.1 g/dL (31.0-37.0); MCV 69.7 fL (80.0-100.0); MEAN PLATELET VOLUME 8.8 fL (7.4-10.4); PLATELET COUNT 251 10x3/uL (130-400); RBC 6.02 10x6/uL (4.20-6.10); RDW 19.5 % (11.5-14.5)
[2021-03-14 07:14] LABS: ALBUMIN 2.3 g/dL (3.4-5.0); ALKALINE PHOSPHATASE 92 U/L (30-120); ALT (SGPT) 16 U/L (10-68); BILIRUBIN - TOTAL 0.34 mg/dL (0.2-1.3); CALC OSMOLALITY 267 mosm/kg (275-300); CALCIUM 8.5 mg/dL (8.5-10.1); CHLORIDE - SERUM 102 mmol/L (98-107); CREATININE - SERUM 0.9 mg/dL (0.6-1.3); GLUCOSE 108 mg/dL (74-106); MAGNESIUM - SERUM 1.8 mg/dL (1.8-2.4); POTASSIUM - SERUM 4.4 mmol/L (3.5-5.1); PROTEIN - SERUM 6.5 g/dL (6.4-8.2); SODIUM 133 mmol/L (136-145); eGFR NON AFRICAN AMERICAN > 90 mL/min (90-120)
[2021-03-14 07:17] LABS: UREA NITROGEN 16 mg/dL (7-18)
[2021-03-14 08:46] LABS: EOSINOPHILS 11 % (0-7); LYMPHOCYTES 35 % (15-50); MONOCYTES 11 % (2-11); NEUTROPHILS 41 % (40-80); PLATELET ESTIMATE NORMAL; PLATELET MORPHOLOGY PLT CLUMPS PRESENT
[2021-03-14 08:47] LABS: ANISOCYTOSIS 1+; SCHISTOCYTES OCC
--- NOTE | 2021-03-14 11:30 | NUR ---
I have reviewed this patient and I concur with the Shift Assessment completed by the Licensed Practical Nurse today this shift.
--- NOTE | 2021-03-14 13:52 | NUR ---
REHAB PRESCREENING Rehab referral received and chart reviewed. PT has not been consulted as of yet. Rehab will continue to follow this patient for PT evaluation in order to assess admission criteria. Thank you for this referral! Jaylene Ledezma, CUT OFF SAW SET UP OPERATOR Rehab PD
--- NOTE | 2021-03-14 16:00 | NUR ---
ORTHOSTATIC VS: LAYING BP 94/62 HR 92 SITTING BP 89/48 HR 98 STANDING BP 80/52 HR 108
--- NOTE | 2021-03-14 19:35 | MORECARE ---
CASE MANAGEMENT DISCHARGE SUMMARY PATIENT: TRAM BYERS UNIT: [id number] ADM DATE: 03/11/21 AGE: 45 : 76 SEX: M ROOM/BED: D.4343 AUTHOR: TAVIA GONZALEZ PHYSICIAN: REFERRING PHYSICIAN: YOLANDA MAHONEY MD DATE OF SERVICE: 03/14/21 Case Management Discharge Planning Summary COMMENTS ENTERED DATE: 03/14/21 19:30 CT COMMENT TYPE: Discharge Planning REVIEWER: Alexei Guzman CM met with patient to complete DC plan and to evaluate needs. Patient stated that he readmitted because %%%. Patient stated that he was able/unable to obtain his medications after last discharge but unfortunately was not able to keep his follow up appointment. Patient stated that he followed the dc instructions given to him. It appears that this readmission was due to Exacerbation of his chronic condition of CHF and noncompliance with prescribed treatment regimen. Patient lives alone, independently, with family support through his brother, Jorge Ruelas, . Patient stated that his home is safe and has electricity and running water. Patient stated that he has no problems paying for medications and he fills his medications at [facility]. CM discussed availability of home health, rehab services, and medical equipment. Patient declined HHS, SNF, and DME but would like Inpatient rehab through [facility]. HENRY signed and placed in chart. Patient voiced no other needs at this time and is satisfied with DC plan. Transportation provider at discharge will be with Jorge, his brother. DC IMM delivered, explained, signed by the patient, and placed in chart. Signed form also left with the patient. CM will continue to follow and will assist as needed with dc plans/needs. Appended by Alexei Guzman on 03/14/2021 19:33 CDT: Correction to beginning of documentation: CM met with patient to complete DC plan and to evaluate needs. Patient stated that he readmitted because he "...felt hot and couldn't breath". Patient stated that he was unable to obtain his medications and was not able to keep his follow up appointment. DCP REVIEW SUMMARY ANTICIPATED D/C DATE: EXPECTED LOS : CASE STATUS: DCP Initiated INITIAL REVIEW: 03/10/2021 INITIAL REVIEWER: Alexei Guzman FINAL DISCHARGE DISPOSITION: : FINAL REVIEWER: FINAL REVIEW DATE: DCP Focus Questions & Answers DCP Evaluation QUESTION: ANSWER Patient and/or caregiver agree upon recommended discharge plan? : Yes Family / Caregiver's ability to cope with chronic illness: : a. Adequate (ability to meet patient's medical needs, ensures patient attends medical appts.) Patient's current cognitive status: : *Oriented to person, place, situation, time and present Patient's ability to cope with chronic illness : d. No chronic illness Patient gives permission to discuss discharge plans with: (name, relationship and number) : Jorge davila, Does the patient have the ability to pay for or attain post discharge needs / services? : Yes Functional screen assessment: : Basic needs can adequately be met by self Family / Caregiver's ability to cope with chronic illness: : a. Adequate (ability to meet patient's medical needs, ensures patient attends medical appts.) Physical Status: : Independent with ADL's Equipment needed for post hospitalization: : None Is there a likelihood that the patient will require additional services to return to the preadmission environment? : No Living Arrangements: : Home Alone with Support Patient with capacity for self-care or can be cared for in same environment as prior to hospitalization? : Yes Baseline cognitive status: : *Oriented to person, place, situation, time and present Physical environment modification needed / anticipated for discharge: : No Medication Management: : Patient states can read and understand medication labels Medication Management: : Patient states can afford medications [facility]): : [facility] Does Patient have transportation to get home and to follow-up medical appointments when discharged from the hospital? : Yes Would patient like to participate in any Care Coordination programs (if applicable): : Not applicable Does the patient have electricity at home? : Yes Does the patient have running water in their house? : Yes Equipment in use: : Other Other Equipment comments: : O[employer]GEN TANKS [employer] SUPPLIES Equipment agency name and contact information: : [facility] Mental health screen: : No mental health history DCP Re-evaluation QUESTION: ANSWER Would patient like to participate in any Care Coordination programs (if applicable): : Not applicable PATIENT: TRAM BYERS ENCOUNTER: [id number] MEDICAL RECORD#: [id number] ADMISSION DATE: 03/11/2021 DISCHARGE DATE: ATTENDING MD: YOLANDA DUBON : AGE: 45 MARITAL STATUS: S DC PLAN ID: [id number] FACILITY: [facility] PRINTED ON: 03/14/21 19:35 CT All edits/amendments must be made on the electronic document DICTATION DATE: 03/14/211934 PHYSICIAN OFFICE ASSISTANT: JERRY 03/14/211934 RPT#: [id number] DC DATE: STATUS: ADM IN [facility] [address] [place] [address] END OF REPORT
[2021-03-15] VITALS: BP 86/56
[2021-03-15 04:00] VITALS: BP 136/101
[2021-03-15 06:53] LABS: BASOPHILS 1.9 % (0-2); EOSINOPHILS 8.5 % (0-7); HEMATOCRIT 41.4 % (42.0-54.0); HEMOGLOBIN 12.9 g/dL (13.5-17.5); LYMPHOCYTES 26.5 % (15-50); MCH 21.9 pg (26.0-34.0); MCHC 31.3 g/dL (31.0-37.0); MCV 70.2 fL (80.0-100.0); MEAN PLATELET VOLUME 8.8 fL (7.4-10.4); NEUTROPHILS 46.1 % (40-80); PLATELET COUNT 255 10x3/uL (130-400); WBC 3.6 10x3/uL (4.8-10.8)
[2021-03-15 07:16] LABS: ALBUMIN 2.5 g/dL (3.4-5.0); ALKALINE PHOSPHATASE 95 U/L (30-120); BILIRUBIN - TOTAL 0.38 mg/dL (0.2-1.3); CALC OSMOLALITY 272 mosm/kg (275-300); CALCIUM 8.5 mg/dL (8.5-10.1); CARBON DIOXIDE 20.5 mmol/L (21.0-32.0); CHLORIDE - SERUM 105 mmol/L (98-107); CREATININE - SERUM 0.9 mg/dL (0.6-1.3); GLUCOSE 109 mg/dL (74-106); MAGNESIUM - SERUM 1.8 mg/dL (1.8-2.4); PROTEIN - SERUM 6.5 g/dL (6.4-8.2); SODIUM 136 mmol/L (136-145); UREA NITROGEN 13 mg/dL (7-18); eGFR NON AFRICAN AMERICAN > 90 mL/min (90-120)
[2021-03-15 07:19] LABS: ALT (SGPT) 30 U/L (10-68)
[2021-03-15 08:00] VITALS: BP 90/41
--- NOTE | 2021-03-15 09:14 | NUR ---
REVIEWED CHART THIS AM. PATIENT STILL HAS NO THERAPIES ORDERED. I CALLED AND SPOKE WITH LISA GANDHI RN CM AND SHE WILL WORK ON GETTING ORDERS. I WILL RE-REVIEW THE CHART AFTER IDG TODAY. THANK YOU FOR THIS REFERRAL. SERGIO GUTIERREZ RN CLINICAL LIAISON, INPATIENT REHAB.
[2021-03-15 11:00] VITALS: BP 100/42
--- NOTE | 2021-03-15 11:09 | NUR ---
PATIENT AAOX4 RESP EVEN AND NON LABORED, NO S/S OF DISTRESS, MEDICATIONS ADMINISTERED WITH NO COMPLICATIONS, NO FURTHER NEEDS AT THIS TIME, CLIR, BLP
[2021-03-15] MEDS ORDERED: LIDODERM 5 %1 PATCH TRANSDERM (13:26)
--- NOTE | 2021-03-15 14:46 | MORECARE ---
CASE MANAGEMENT DISCHARGE SUMMARY PATIENT: TRAM BYERS UNIT: [id number] ADM DATE: 03/11/21 AGE: 45 : 76 SEX: M ROOM/BED: D.2133 AUTHOR: LISA,DOC PHYSICIAN: REFERRING PHYSICIAN: YOLANDA MAHONEY MD DATE OF SERVICE: 03/15/21 Case Management Discharge Planning Summary COMMENTS ENTERED DATE: 03/15/21 14:24 CT COMMENT TYPE: Discharge Planning REVIEWER: Cait Jorgensen CM met with patient today regarding denial of inpatient rehab. CM was informed this morning that patient does not meet criteria. Met with patient to assess alternate plan. Pt has apartment to return to and does not want placement in SNF, denies need for HH, states that he has his DME needs met. Pt states that he feels he can get his brother to obtain his medications and follow up appointments if he is in town. Spoke to patient about alternate plan if brother is unavailable, patient states that he has a cousin and friend that can take him. CM strongly suggested that patient bead picker is medication and go to his follow up appts in order to stay well. Pt states that he came back to hospital because his breathing was bad. CM encouraged patient to obtain his medication and keep his f/u appt with PCP. Pt verbalized understanding. ENTERED DATE: 03/14/21 19:30 CT COMMENT TYPE: Discharge Planning REVIEWER: Alexei Guzman CM met with patient to complete DC plan and to evaluate needs. Patient stated that he readmitted because %%%. Patient stated that he was able/unable to obtain his medications after last discharge but unfortunately was not able to keep his follow up appointment. Patient stated that he followed the dc instructions given to him. It appears that this readmission was due to Exacerbation of his chronic condition of CHF and noncompliance with prescribed treatment regimen. Patient lives alone, independently, with family support through his brother, Jorge Ruelas, . Patient stated that his home is safe and has electricity and running water. Patient stated that he has no problems paying for medications and he fills his medications at [facility]. CM discussed availability of home health, rehab services, and medical equipment. Patient declined HHS, SNF, and DME but would like Inpatient rehab through [facility]. HENRY signed and placed in chart. Patient voiced no other needs at this time and is satisfied with DC plan. Transportation provider at discharge will be with Jorge, his brother. DC IMM delivered, explained, signed by the patient, and placed in chart. Signed form also left with the patient. CM will continue to follow and will assist as needed with dc plans/needs. Appended by Alexei Guzman on 03/14/2021 19:33 CDT: Correction to beginning of documentation: CM met with patient to complete DC plan and to evaluate needs. Patient stated that he readmitted because he "...felt hot and couldn't breath". Patient stated that he was unable to obtain his medications and was not able to keep his follow up appointment. DCP REVIEW SUMMARY ANTICIPATED D/C DATE: EXPECTED LOS : CASE STATUS: DCP Initiated INITIAL REVIEW: 03/10/2021 INITIAL REVIEWER: Alexei Guzman FINAL DISCHARGE DISPOSITION: : FINAL REVIEWER: FINAL REVIEW DATE: DCP Focus Questions & Answers DCP Evaluation QUESTION: ANSWER Patient and/or caregiver agree upon recommended discharge plan? : Yes Family / Caregiver's ability to cope with chronic illness: : a. Adequate (ability to meet patient's medical needs, ensures patient attends medical appts.) Patient's current cognitive status: : *Oriented to person, place, situation, time and present Patient's ability to cope with chronic illness : d. No chronic illness Patient gives permission to discuss discharge plans with: (name, relationship and number) : brotherJorge, Does the patient have the ability to pay for or attain post discharge needs / services? : Yes Functional screen assessment: : Basic needs can adequately be met by self Family / Caregiver's ability to cope with chronic illness: : a. Adequate (ability to meet patient's medical needs, ensures patient attends medical appts.) Physical Status: : Independent with ADL's Equipment needed for post hospitalization: : None Is there a likelihood that the patient will require additional services to return to the preadmission environment? : No Living Arrangements: : Home Alone with Support Patient with capacity for self-care or can be cared for in same environment as prior to hospitalization? : Yes Baseline cognitive status: : *Oriented to person, place, situation, time and present Physical environment modification needed / anticipated for discharge: : No Medication Management: : Patient states can read and understand medication labels Medication Management: : Patient states can afford medications [facility]acy [facility](s): : [facility] Does Patient have transportation to get home and to follow-up medical appointments when discharged from the hospital? : Yes Would patient like to participate in any Care Coordination programs (if applicable): : Not applicable Does the patient have electricity at home? : Yes Does the patient have running water in their house? : Yes Equipment in use: : Other Other Equipment comments: : O[employer] T[employer] SUPPLIES Equipment agency name and contact information: : [facility] Mental health screen: : No mental health history DCP Re-evaluation QUESTION: ANSWER Would patient like to participate in any Care Coordination programs (if applicable): : Not applicable PATIENT: TRAM BYERS ENCOUNTER: [id number] MEDICAL RECORD#: [id number] ADMISSION DATE: 03/11/2021 DISCHARGE DATE: ATTENDING MD: YOLANDA DUBON : AGE: 45 MARITAL STATUS: S DC PLAN ID: [id number] FACILITY: [facility] PRINTED ON: 03/15/21 14:46 CT All edits/amendments must be made on the electronic document DICTATION DATE: 03/15/211445 SECTION 8 PROPERTY MANAGER: JERRY 03/15/211445 RPT#: [id number] DC DATE: STATUS: ADM IN [facility] [address] [place] [address] END OF REPORT
--- NOTE | 2021-03-15 17:06 | MORECARE ---
CASE MANAGEMENT DISCHARGE SUMMARY PATIENT: TRAM BYERS UNIT: [id number] ADM DATE: 03/11/21 AGE: 45 : 77 SEX: M ROOM/BED: D.2133 AUTHOR: LISA,DOC PHYSICIAN: REFERRING PHYSICIAN: YOLANDA MAHONEY MD DATE OF SERVICE: 03/15/21 Case Management Discharge Planning Summary COMMENTS ENTERED DATE: 03/15/21 14:24 CT COMMENT TYPE: Discharge Planning REVIEWER: Cait Jorgensen CM met with patient today regarding denial of inpatient rehab. CM was informed this morning that patient does not meet criteria. Met with patient to assess alternate plan. Pt has apartment to return to and does not want placement in SNF, denies need for HH, states that he has his DME needs met. Pt states that he feels he can get his brother to obtain his medications and follow up appointments if he is in town. Spoke to patient about alternate plan if brother is unavailable, patient states that he has a cousin and friend that can take him. 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 Pt states that he came back to hospital because his breathing was bad. CM encouraged patient to obtain his medication and keep his f/u appt with PCP. Pt verbalized understanding. ENTERED DATE: 03/14/21 19:30 CT COMMENT TYPE: Discharge Planning REVIEWER: Alexei Guzman CM met with patient to complete DC plan and to evaluate needs. Patient stated that he readmitted because %%%. Patient stated that he was able/unable to obtain his medications after last discharge but unfortunately was not able to keep his follow up appointment. Patient stated that he followed the dc instructions given to him. It appears that this readmission was due to Exacerbation of his chronic condition of CHF and noncompliance with prescribed treatment regimen. Patient lives alone, independently, with family support through his brother, Jorge Ruelas, . Patient stated that his home is safe and has electricity and running water. Patient stated that he has no problems paying for medications and he fills his medications at [facility]. CM discussed availability of home health, rehab services, and medical equipment. Patient declined HHS, SNF, and DME but would like Inpatient rehab through [facility]. HENRY signed and placed in chart. Patient voiced no other needs at this time and is satisfied with DC plan. Transportation provider at discharge will be with Jorge, his brother. DC IMM delivered, explained, signed by the patient, and placed in chart. Signed form also left with the patient. CM will continue to follow and will assist as needed with dc plans/needs. Appended by Alexei Guzman on 03/14/2021 19:33 CDT: Correction to beginning of documentation: CM met with patient to complete DC plan and to evaluate needs. Patient stated that he readmitted because he "...felt hot and couldn't breath". Patient stated that he was unable to obtain his medications and was not able to keep his follow up appointment. DCP REVIEW SUMMARY ANTICIPATED D/C DATE: EXPECTED LOS : CASE STATUS: DCP Initiated INITIAL REVIEW: 03/10/2021 INITIAL REVIEWER: Alexei Guzman FINAL DISCHARGE DISPOSITION: : FINAL REVIEWER: FINAL REVIEW DATE: DCP Focus Questions & Answers DCP Evaluation QUESTION: ANSWER Patient and/or caregiver agree upon recommended discharge plan? : Yes Family / Caregiver's ability to cope with chronic illness: : a. Adequate (ability to meet patient's medical needs, ensures patient attends medical appts.) Patient's current cognitive status: : *Oriented to person, place, situation, time and present Patient's ability to cope with chronic illness : d. No chronic illness Patient gives permission to discuss discharge plans with: (name, relationship and number) : brotherJorge, Does the patient have the ability to pay for or attain post discharge needs / services? : Yes Functional screen assessment: : Basic needs can adequately be met by self Family / Caregiver's ability to cope with chronic illness: : a. Adequate (ability to meet patient's medical needs, ensures patient attends medical appts.) Physical Status: : Independent with ADL's Equipment needed for post hospitalization: : None Is there a likelihood that the patient will require additional services to return to the preadmission environment? : No Living Arrangements: : Home Alone with Support Patient with capacity for self-care or can be cared for in same environment as prior to hospitalization? : Yes Baseline cognitive status: : *Oriented to person, place, situation, time and present Physical environment modification needed / anticipated for discharge: : No Medication Management: : Patient states can read and understand medication labels Medication Management: : Patient states can afford medications Pharmacy name(s): : [facility] Does Patient have transportation to get home and to follow-up medical appointments when discharged from the hospital? : Yes Would patient like to participate in any Care Coordination programs (if applicable): : Not applicable Does the patient have electricity at home? : Yes Does the patient have running water in their house? : Yes Equipment in use: : Other Other Equipment comments: : [employer] Equipment agency name and contact information: : [facility] Mental health screen: : No mental health history DCP Re-evaluation QUESTION: ANSWER Would patient like to participate in any Care Coordination programs (if applicable): : Not applicable PATIENT: TRAM BYERS ENCOUNTER: [id number] MEDICAL RECORD#: [id number] ADMISSION DATE: 03/11/2021 DISCHARGE DATE: 03/15/2021 ATTENDING MD: YOLANDA DUBON : AGE: 45 MARITAL STATUS: S DC PLAN ID: [id number] FACILITY: [facility] PRINTED ON: 03/15/21 17:06 CT All edits/amendments must be made on the electronic document DICTATION DATE: 03/15/211705 BRIDGE REPAIRER: JERRY 03/15/211705 RPT#: [id number] DC DATE:03/15/21 STATUS: DIS IN [facility] [address] [place] [address] END OF REPORT
== END 2021-03-15 17:00 | disposition home or self-care (01) | DRG 293 ==
LOC: D.ER 03:50 → D.M2 06:11 → OBSVTIME 06:12 → D.M2 03-11 12:53
PROVIDERS: Family Medicine; ADMIT Family Medicine; ATTEND Family Medicine
DX: I11.0 Hypertensive heart disease with heart failure (principal); I50.23 Acute on chronic systolic (congestive) heart failure; E11.65 Type 2 diabetes mellitus with hyperglycemia; I42.8 Other cardiomyopathies; D50.9 Iron deficiency anemia, unspecified; E87.6 Hypokalemia; I95.9 Hypotension, unspecified; Z91.14 Patient's other noncompliance with medication regimen; F15.10 Other stimulant abuse, uncomplicated

== ENCOUNTER 2021-03-25 23:10 | Inpatient (IN) | payer MEDICARE ==
[~2021-03-25] VITALS: Ht 177.8 cm; Wt 78.9 kg
--- NOTE | ~2021-03-25 | CN ---
PATIENT NAME:TRAM BYERS MEDICAL RECORD: [id number] : 77 LOCATION:D. D.2119 ADMIT DATE: 03/26/21 ACCOUNT: [id number] CONSULTING PHYSICIAN: YUN SOLORZANO MD REFERRING PHYSICIAN: RUBÉN HURT MD DATE OF CONSULTATION: 03/28/2021 HISTORY OF PRESENT ILLNESS: The patient is a 45-year-old -I[place]ic male with history of fktih-gs-wotzfok systolic CHF, hypertension, diabetes mellitus, schizophrenia, methamphetamine abuse, who was admitted with CHF decompensated. PHYSICAL EXAMINATION: GENERAL: Pleasant middle-aged black male, lying in no apparent distress. VITAL SIGNS: Blood pressure 100/50s, pulse 90s (regular). HEENT: Sclerae somewhat atypical. Conjunctivae pink. NECK: Supple. No appreciated JVD. HEART: He has got regular rhythm and rate, II/ systolic murmur; PMI laterally displaced. LUNGS: Clear bilaterally. ABDOMEN: Benign. EXTREMITIES: Negative for edema. NEUROLOGICAL: Nonfocal. MEDICATIONS: 1. Bumex 2 mg p.o. b.i.d. 2. Entresto 24/26 mg 1 tablet b.i.d. 3. Lovenox 40 mg subQ daily. 4. Potassium 20 mEq b.i.d. 5. Nicotine patch daily. LABORATORY DATA: Telemetry normal sinus rhythm in the 90s; episodes of runs of nonsustained/sustained ventricular tachycardia, currently sinus rhythm. DIAGNOSTIC STUDIES: EKG, sinus tachycardia at 100 beats per minute. ASSESSMENT AND PLAN: 1. Hfvhj-yt-qalogsr congestive heart failure -- systolic dysfunction -- compensated. 2. Diabetes mellitus. 3. Hypertension. 4. History of schizophrenia. 5. History of methamphetamine abuse. 6. Noncompliant. PLAN: Continue with current medical management at this time. The patient may be discharged with outpatient followup in cardiovascular clinic. Thank you for allowing us to participate in the care of this patient. TRANSINT:[id number] Voice Confirmation ID: [id number] DOCUMENT ID: [id number] CONSULT REPORT [id number] TRAM BYERS MOSES MD CC: [id number] DICTATION DATE: 03/28/21 1012 PERSONNEL ADVISER: 03/28/21 1052 [place] [address]
[~2021-03-25 23:10] MED LIST changes: +LIDODERM 5 %1 PATCH TRANSDERM
--- NOTE | 2021-03-25 23:15 | NUR ---
PT ON LABORER FILTER PLANT.
[2021-03-25 23:36] LABS: BASOPHILS 2.3 % (0-2); EOSINOPHILS 4.5 % (0-7); HEMATOCRIT 36.2 % (42.0-54.0); HEMOGLOBIN 11.2 g/dL (13.5-17.5); MCH 21.9 pg (26.0-34.0); MCHC 30.8 g/dL (31.0-37.0); MCV 71.1 fL (80.0-100.0); MEAN PLATELET VOLUME 8.7 fL (7.4-10.4); MONOCYTES 13.7 % (2-11); NEUTROPHILS 52.5 % (40-80); RBC 5.09 10x6/uL (4.20-6.10); RDW 20.5 % (11.5-14.5); WBC 4.7 10x3/uL (4.8-10.8)
[2021-03-25 23:42] LABS: PLATELET COUNT 172 10x3/uL (130-400)
[2021-03-25 23:52] LABS: CALC OSMOLALITY 272 mosm/kg (275-300); CALCIUM 8.6 mg/dL (8.5-10.1); CARBON DIOXIDE 21.6 mmol/L (21.0-32.0); CHLORIDE - SERUM 104 mmol/L (98-107); CREATININE - SERUM 1.2 mg/dL (0.6-1.3); GLUCOSE 82 mg/dL (74-106); POTASSIUM - SERUM 4.2 mmol/L (3.5-5.1); SODIUM 136 mmol/L (136-145); UREA NITROGEN 17 mg/dL (7-18); eGFR NON AFRICAN AMERICAN 70 mL/min (90-120)
[2021-03-25 23:54] LABS: APTT 35.4 SECONDS (22.8-39.4); INR 1.65 (0.85-1.17); PROTIME 18.1 SECONDS (11.6-15.0)
[2021-03-26] VITALS (13 sets, daily range): BP systolic 87–124; BP diastolic 55–80
[2021-03-26 00:05] LABS: ALBUMIN 3.3 g/dL (3.4-5.0); ALKALINE PHOSPHATASE 111 U/L (30-120); ALT (SGPT) 24 U/L (10-68); BILIRUBIN - TOTAL 0.97 mg/dL (0.2-1.3); CKMB 2.3 U/L (0.0-3.6); CREATINE KINASE 151 UL (21-232); PRO BNP 5708 pg/mL (0-125); PROTEIN - SERUM 7.8 g/dL (6.4-8.2); TROPONIN-I < 0.017 ng/mL (0.000-0.060)
--- NOTE | 2021-03-26 03:31 | NUR ---
PT RESTING IN POSITION OF COMFORT. DENIES CURRENT NEEDS. CALL LIGHT AND BELONGINGS WITHIN REACH OF PT.
--- NOTE | 2021-03-26 05:48 | NUR ---
PT RESTING IN POSITION OF COMFORT. HE REMAINS ON ROOM AIR, AND ON PHYSIOTHERAPIST'S ASSISTANT, SINUS RHYTHM OF 93. BLANKET, WATER, ORANGE JUICE AND PILLOW PROVIDED PER PT REQUEST. NAD NOTED.
[2021-03-26 07:16] LABS: CKMB 1.5 U/L (0.0-3.6); CREATINE KINASE 132 UL (21-232)
[2021-03-26 07:22] LABS: TROPONIN-I < 0.017 ng/mL (0.000-0.060)
--- NOTE | 2021-03-26 08:36 | NUR ---
MEAL TRAY TO PT. PT EATING. DENIES FURTHER NEEDS. WILL CONTINUE TO MONITOR.
[2021-03-26 08:42] LABS: UDS - AMPHET POSITIVE QUAL (NEGATIVE); UDS - BARB NEGATIVE QUAL (NEGATIVE); UDS - BENZO NEGATIVE QUAL (NEGATIVE); UDS - COCAINE NEGATIVE QUAL (NEGATIVE); UDS - OPIATE NEGATIVE QUAL (NEGATIVE); UDS - PCP NEGATIVE QUAL (NEGATIVE); UDS - THC POSITIVE QUAL (NEGATIVE)
[2021-03-26 08:43] LABS: BACTERIA MOD HPF (NONE SEEN); BILIRUBIN NEGATIVE (NEGATIVE); KETONE NEGATIVE (NEGATIVE); NITRITE NEGATIVE (NEGATIVE); UROBILINOGEN NORMAL mg/dL (< 2); WHITE CELLS - URINE 0-5 HPF (0-1)
[2021-03-26 08:44] LABS: GRANULAR CAST 0-5 LPF (NONE SEEN); SQUAMOUS EPITHELIAL 0-5 HPF (0-4)
[2021-03-26 08:44] LABS: SARS-CoV-2 ANTIGEN NEGATIVE- SARS-COV-2 (NEGATIVE)
--- NOTE | 2021-03-26 11:41 | NUR ---
PT REFUSING BLOOD DRAW FOR TROPONIN. STATES "NO. I'LL PASS ON THIS ONE."
--- NOTE | 2021-03-26 16:30 | NUR ---
PT TO ROOM FROM ER ON CART. ROOM AIR 98%. LITTLE TACHY AT 104. SOME SOB BUT NO DISTRESS.
[2021-03-27 05:21] VITALS: BP 107/74
[2021-03-27 06:21] LABS: BASOPHILS 1.5 % (0-2); EOSINOPHILS 3.7 % (0-7); HEMATOCRIT 30.7 % (42.0-54.0); HEMOGLOBIN 9.8 g/dL (13.5-17.5); LYMPHOCYTES 11.8 % (15-50); MCH 22.5 pg (26.0-34.0); MCV 70.3 fL (80.0-100.0); MONOCYTES 13.2 % (2-11); NEUTROPHILS 69.8 % (40-80); PLATELET COUNT 148 10x3/uL (130-400); RBC 4.36 10x6/uL (4.20-6.10); WBC 4.3 10x3/uL (4.8-10.8)
[2021-03-27 06:30] LABS: ALBUMIN 2.8 g/dL (3.4-5.0); ALKALINE PHOSPHATASE 97 U/L (30-120); ALT (SGPT) 21 U/L (10-68); BILIRUBIN - TOTAL 0.74 mg/dL (0.2-1.3); CALCIUM 8.1 mg/dL (8.5-10.1); CHLORIDE - SERUM 105 mmol/L (98-107); CREATININE - SERUM 1.1 mg/dL (0.6-1.3); MAGNESIUM - SERUM 1.5 mg/dL (1.8-2.4); POTASSIUM - SERUM 3.6 mmol/L (3.5-5.1); PROTEIN - SERUM 6.9 g/dL (6.4-8.2); SODIUM 138 mmol/L (136-145); UREA NITROGEN 15 mg/dL (7-18); eGFR NON AFRICAN AMERICAN 77 mL/min (90-120)
[2021-03-27 06:41] LABS: CALC OSMOLALITY 278 mosm/kg (275-300); GLUCOSE 130 mg/dL (74-106)
[2021-03-27 09:23] VITALS: BP 105/72
[2021-03-27 11:57] VITALS: BP 106/62
[2021-03-27 14:13] VITALS: Ht 177.8 cm; Wt 78.9 kg
[2021-03-27 20:00] VITALS: BP 122/73
--- NOTE | 2021-03-27 20:00 | NUR ---
INITIAL ROUNDS AND ASSESSMENT COMPLETED. PT RESTING IN BED. NO DISTRESS. CALL LIGHT IN REACH.
[2021-03-28 04:00] VITALS: BP 103/69
[2021-03-28 06:20] LABS: BASOPHILS 0.6 % (0-2); EOSINOPHILS 9.2 % (0-7); LYMPHOCYTES 12.9 % (15-50); MCHC 31.3 g/dL (31.0-37.0); MCV 70.4 fL (80.0-100.0); MONOCYTES 15.1 % (2-11); NEUTROPHILS 62.2 % (40-80); PLATELET COUNT 177 10x3/uL (130-400); RDW 21.2 % (11.5-14.5); WBC 3.8 10x3/uL (4.8-10.8)
[2021-03-28 06:27] LABS: HEMATOCRIT 38.1 % (42.0-54.0); HEMOGLOBIN 11.9 g/dL (13.5-17.5); RBC 5.42 10x6/uL (4.20-6.10)
[2021-03-28 06:52] LABS: ALBUMIN 2.9 g/dL (3.4-5.0); ALKALINE PHOSPHATASE 107 U/L (30-120); ALT (SGPT) 16 U/L (10-68); BILIRUBIN - TOTAL 0.76 mg/dL (0.2-1.3); CALC OSMOLALITY 279 mosm/kg (275-300); CALCIUM 8.7 mg/dL (8.5-10.1); CARBON DIOXIDE 26.8 mmol/L (21.0-32.0); CHLORIDE - SERUM 103 mmol/L (98-107); CREATININE - SERUM 1.1 mg/dL (0.6-1.3); GLUCOSE 112 mg/dL (74-106); MAGNESIUM - SERUM 1.6 mg/dL (1.8-2.4); POTASSIUM - SERUM 3.4 mmol/L (3.5-5.1); PROTEIN - SERUM 7.3 g/dL (6.4-8.2); SODIUM 139 mmol/L (136-145); UREA NITROGEN 14 mg/dL (7-18); eGFR NON AFRICAN AMERICAN 77 mL/min (90-120)
--- NOTE | 2021-03-28 07:20 | NUR ---
RECIEVE REPORT. RESTING IN BED WITH EYES CLOSED. AROUSES EASILY TO STIMULI. DENIES ANY NEEDS. REPLACE Mg AND K PER ELECTROLYTE PROTOCOL.
[2021-03-28 07:44] VITALS: BP 99/54
--- NOTE | 2021-03-28 12:00 | NUR ---
ALERT AND ORIENTED X4. SITTING UP IN BED. DC RT FA IV TIP INTACT. DISCHARGE INSTRUCTIONS GIVEN VERBALLY AND WRITTEN. DISCHARGE PAPERS SIGNED ON CHART. REMAINS FREE FROM INJURY.
--- NOTE | 2021-03-28 18:33 | MORECARE ---
CASE MANAGEMENT DISCHARGE SUMMARY PATIENT: TRAM BYERS UNIT: [id number] ADM DATE: 03/26/21 AGE: 45 : 77 SEX: M ROOM/BED: D.2120 AUTHOR: LISA,DOC PHYSICIAN: REFERRING PHYSICIAN: RUBÉN HURT MD DATE OF SERVICE: 03/28/21 Case Management Discharge Planning Summary COMMENTS ENTERED DATE: 03/28/21 18:28 CT COMMENT TYPE: Discharge Planning REVIEWER: Alexei Guzman CM met with patient to complete DC plan and to evaluate needs. Patient lives alone with strong support and stated that his person to notify is his brother, Jorge Ruelas, . Patient stated that his home is safe and has electricity and running water. Patient stated that he has no problems paying for medications and he fills his medications at [facility]. At discharge, the patient plans to return home and feels this is a safe discharge. CM discussed availability of home health, rehab services, and medical equipment. Patient declined HHS, SNF, IPR, and DME. Patient voiced no other needs at this time and is satisfied with DC plan. DC IMM delivered, explained, signed by the patient, and placed in chart. Signed form also left with the patient. CM will continue to follow and will assist as needed with dc plans/needs. DCP REVIEW SUMMARY ANTICIPATED D/C DATE: 03/28/2021 EXPECTED LOS : 2 CASE STATUS: DCP Initiated INITIAL REVIEW: 03/26/2021 INITIAL REVIEWER: Alexei Guzman FINAL DISCHARGE DISPOSITION: : FINAL REVIEWER: FINAL REVIEW DATE: DCP Focus Questions & Answers DCP Evaluation QUESTION: ANSWER Patient and/or caregiver agree upon recommended discharge plan? : Yes Patient's current cognitive status: : *Oriented to person, place, situation, time and present Patient's ability to cope with chronic illness : d. No chronic illness Patient gives permission to discuss discharge plans with: (name, relationship and number) : brotherJorge, Family / Caregiver's ability to cope with chronic illness: : a. Adequate (ability to meet patient's medical needs, ensures patient attends medical appts.) Does the patient have the ability to pay for or attain post discharge needs / services? : Yes Functional screen assessment: : Basic needs can adequately be met by self Family / Caregiver's ability to cope with chronic illness: : a. Adequate (ability to meet patient's medical needs, ensures patient attends medical appts.) Physical Status: : Independent with ADL's Equipment needed for post hospitalization: : None Is there a likelihood that the patient will require additional services to return to the preadmission environment? : No Living Arrangements: : Home Alone with Support Patient with capacity for self-care or can be cared for in same environment as prior to hospitalization? : Yes Baseline cognitive status: : *Oriented to person, place, situation, time and present Physical environment modification needed / anticipated for discharge: : No Medication Management: : Patient states can afford medications Medication Management: : Patient states can read and understand medication labels Pharmacy name(s): : [facility] Does Patient have transportation to get home and to follow-up medical appointments when discharged from the hospital? : Yes Would patient like to participate in any Care Coordination programs (if applicable): : Not applicable Does the patient have electricity at home? : Yes Does the patient have running water in their house? : Yes Equipment in use: : None Mental health screen: : No mental health history DCP Re-evaluation QUESTION: ANSWER Would patient like to participate in any Care Coordination programs (if applicable): : Not applicable PATIENT: TRAM BYERS ENCOUNTER: [id number] MEDICAL RECORD#: [id number] ADMISSION DATE: 03/26/2021 DISCHARGE DATE: 03/28/2021 ATTENDING MD: RUBÉN DOMINGUEZ : AGE: 45 MARITAL STATUS: S DC PLAN ID: [id number] FACILITY: [facility] PRINTED ON: 03/28/21 18:33 CT All edits/amendments must be made on the electronic document DICTATION DATE: 03/28/211832 MANAGER QUALITY SYSTEMS: JERRY 03/28/211832 RPT#: [id number] DC DATE:03/28/21 STATUS: DIS IN [facility] [address] [place] [address] END OF REPORT
--- NOTE | 2021-03-29 16:14 | MORECARE ---
CASE MANAGEMENT DISCHARGE SUMMARY PATIENT: TRAM BYERS UNIT: [id number] ADM DATE: 03/26/21 AGE: 45 : 77 SEX: M ROOM/BED: D.2120 AUTHOR: LISA,DOC PHYSICIAN: REFERRING PHYSICIAN: RUBÉN HURT MD DATE OF SERVICE: 03/29/21 Case Management Discharge Planning Summary COMMENTS ENTERED DATE: 03/28/21 18:28 CT COMMENT TYPE: Discharge Planning REVIEWER: Alexei Guzman CM met with patient to complete DC plan and to evaluate needs. Patient lives alone with strong support and stated that his person to notify is his brother, Jorge Ruelas, . Patient stated that his home is safe and has electricity and running water. Patient stated that he has no problems paying for medications and he fills his medications at [facility]. At discharge, the patient plans to return home and feels this is a safe discharge. CM discussed availability of home health, rehab services, and medical equipment. Patient declined HHS, SNF, IPR, and DME. Patient voiced no other needs at this time and is satisfied with DC plan. DC IMM delivered, explained, signed by the patient, and placed in chart. Signed form also left with the patient. CM will continue to follow and will assist as needed with dc plans/needs. DCP REVIEW SUMMARY ANTICIPATED D/C DATE: 03/28/2021 EXPECTED LOS : 2 CASE STATUS: DCP Initiated INITIAL REVIEW: 03/26/2021 INITIAL REVIEWER: Alexei Guzman FINAL DISCHARGE DISPOSITION: : FINAL REVIEWER: FINAL REVIEW DATE: DCP Focus Questions & Answers DCP Evaluation QUESTION: ANSWER Patient and/or caregiver agree upon recommended discharge plan? : Yes Family / Caregiver's ability to cope with chronic illness: : a. Adequate (ability to meet patient's medical needs, ensures patient attends medical appts.) Patient's current cognitive status: : *Oriented to person, place, situation, time and present Patient's ability to cope with chronic illness : d. No chronic illness Patient gives permission to discuss discharge plans with: (name, relationship and number) : brotherJorge, Does the patient have the ability to pay for or attain post discharge needs / services? : Yes Functional screen assessment: : Basic needs can adequately be met by self Family / Caregiver's ability to cope with chronic illness: : a. Adequate (ability to meet patient's medical needs, ensures patient attends medical appts.) Physical Status: : Independent with ADL's Equipment needed for post hospitalization: : None Is there a likelihood that the patient will require additional services to return to the preadmission environment? : No Living Arrangements: : Home Alone with Support Patient with capacity for self-care or can be cared for in same environment as prior to hospitalization? : Yes Baseline cognitive status: : *Oriented to person, place, situation, time and present Physical environment modification needed / anticipated for discharge: : No Medication Management: : Patient states can read and understand medication labels Medication Management: : Patient states can afford medications Pharmacy name(s): : [facility] Does Patient have transportation to get home and to follow-up medical appointments when discharged from the hospital? : Yes Would patient like to participate in any Care Coordination programs (if applicable): : Not applicable Does the patient have electricity at home? : Yes Does the patient have running water in their house? : Yes Equipment in use: : None Mental health screen: : No mental health history DCP Re-evaluation QUESTION: ANSWER Would patient like to participate in any Care Coordination programs (if applicable): : Not applicable PATIENT: TRAM BYERS ENCOUNTER: [id number] MEDICAL RECORD#: [id number] ADMISSION DATE: 03/26/2021 DISCHARGE DATE: 03/28/2021 ATTENDING MD: RUBÉN DOMINGUEZ : AGE: 45 MARITAL STATUS: S DC PLAN ID: [id number] FACILITY: [facility] PRINTED ON: 03/29/21 16:14 CT All edits/amendments must be made on the electronic document DICTATION DATE: 03/29/211613 SANITATION TRUCK CLEANER: JERRY 03/29/21 1614 RPT#: [id number] DC DATE:03/28/21 STATUS: DIS IN [facility] [address] [place] [address] END OF REPORT
== END 2021-03-28 13:07 | disposition home or self-care (01) | DRG 293 ==
LOC: D.ER 23:10 → D.M2 03-26 08:26 → D.ER 03-26 15:00 → D.M2 03-28 13:07
PROVIDERS: Emergency Medicine; Family Medicine; ADMIT Family Medicine; ATTEND Family Medicine
DX: I11.0 Hypertensive heart disease with heart failure (principal); I50.23 Acute on chronic systolic (congestive) heart failure; I42.9 Cardiomyopathy, unspecified; Z91.19 Patient's noncompliance with other medical treatment and regimen; E11.65 Type 2 diabetes mellitus with hyperglycemia; F15.10 Other stimulant abuse, uncomplicated